=== PATIENT | male | born 1940 | race Caucasian/White ===

== ENCOUNTER 2019-04-18 16:34 | Inpatient (IN) ==
--- NOTE | 2019-04-18 16:58 | Emergency Department Note ---
Disposition Clinical Impression: Hyperkalemia, Near syncope, Dehydration, Acute renal insufficiency Disposition: Admitted As Inpatient Condition: Fair Time of Disposition: 21:10 Dizziness HPI - General Chief Complaint: ED Dizziness Stated Complaint: Trouble standing multiple falls Time Seen by Provider: 04/18/19 16:44 Source: patient, EMS Mode of arrival: ambulatory Limitations: no limitations Nursing Notes Reviewed: Yes Vital Signs Reviewed: Yes - History of Present Illness HPI Narrative: 78-year-old male past medical history of chronic renal disease, diabetes presenting after a presyncopal episode experienced at home associated with fall. Patient states separate into sitting on his front porch when he stood to go back in the house suddenly felt lightheaded and dizzy and fell. Patient states he did not strike his head, did not lose consciousness, has not had nausea vomiting since the event, no other trauma experienced during this episode. Patient denies headache, vision change, neck or back pain, chest pain or shortness of breath. Patient admits that he has had some nausea and vomiting over the past 3 weeks but is not worse or changed since this event. Pt Subjective Complaint: dizziness, lightheadedness, near syncope, weakness - Related Data Home Medications Medication Instructions Recorded Confirmed Aspirin [Lo-Dose Aspirin EC] 81 mg PO DAILY 04/18/19 04/18/19 Citalopram Hydrobromide 40 mg PO DAILY 04/18/19 04/18/19 [Citalopram HBr] Finasteride [Proscar] 5 mg PO DAILY 04/18/19 04/18/19 Furosemide [Lasix] 20 mg PO DAILY 04/18/19 04/18/19 Insulin Glargine [Lantus] 40 unit SQ 04/18/19 04/18/19 Lisinopril [Zestril] 10 mg PO DAILY 04/18/19 04/18/19 Metoprolol Tartrate 100 mg PO BID 04/18/19 04/18/19 Simvastatin [Zocor] 20 mg PO HS 04/18/19 04/18/19 Tamsulosin [Flomax] 0.4 mg PO BID 04/18/19 04/18/19 dilTIAZem HCl [Diltiazem ER] 240 mg PO DAILY 04/18/19 04/18/19 Allergies Allergy/AdvReac Type Severity Reaction Status Date / Time No Known Allergies Allergy Verified 04/18/19 16:48 Review of Systems: *See History of Present Illness for more detail Constitutional: Denies: fever, chills Cardiovascular: Denies: chest pain Respiratory: Denies: dyspnea, cough, hemoptysis Gastrointestinal: Patient minutes to intermittent nausea and vomiting productive of a white foamy sputum. Denies: abdominal pain, diarrhea, constipation, hematemesis, melena, hematochezia Genitourinary: Denies: hematuria Musculoskeletal: Denies: back pain, neck pain Neurological: Patient with some lightheadedness and dizziness particularly upon standing. Denies: headache, weakness, numbness, paresthesias, difficulty with ambulation. Endocrine: Admits fatigue All systems ED: reviewed and negative except as stated. Review of Systems: As Per HPI Past Medical History - Past Medical History Medical history: Reports: diabetes, renal disease - Social History Smoking Status: Former smoker Alcohol use: Reports: none Drug use: Reports: none Physical Exam Constitutional: No acute distress, [id number], engaged to conversation, speech is fluid, answers questions appropriately Neuro: GCS 15, no overt focal neurological deficits Head: Atraumatic, normocephalic Eyes: Pupils equal, round and reactive to light, no scleral icterus, no conjunctival injection Neck: Trachea midline without deviation. Anterior neck is supple without swelling. *Chest: Symmetric chest wall rise *Heart: Cardiac rhythm and rate are regular with S1 and S2 , no S3 or S4 appreciated, no murmurs, gallops, rubs, or clicks. *Lungs: Lungs are clear to auscultation bilaterally, without accessory muscle use or prolonged expiratory phase. No wheezes, rhonchi or stridor appreciated. Abdomen: Abdomen is flat, soft to palpation, normal bowel sounds. No abdominal bruit auscultated. Non-distended, non-rigid, no organomegaly, no ascites appreciated. No pulsatile mass, no tenderness or guarding to palpation in all four quadrants, no rebound Extremities: Normal capillary refill without evidence of pedal edema, joint swelling or erythema. Pulses/motor/sensory intact in all 4 extremities. Psychiatric exam: Patient displays a normal affect and mood for the environment. No overt signs of hallucination. Integumentary: Patient noted to have brawny changes to his lower extremities, venous stasis, nonpitting edema, multiple small circular ulcerations across the majority of his body, very poor skin care. - General Limitations: no limitations General appearance: alert, in no apparent distress Course Course Narrative: Presyncope workup including EKG, troponin, BNP, x-ray, basic labs, ammonia, CT scan of the abdomen and pelvis Vital Signs Temperature 99 F 04/18/19 16:40 Pulse Rate 95 04/18/19 16:40 Respiratory Rate 16 04/18/19 16:40 Blood Pressure 108/65 04/18/19 16:40 O2 Sat by Pulse Oximetry 95 04/18/19 16:40 Temperature 98.0 F 04/19/19 08:24 Pulse Rate 104 04/19/19 08:24 Respiratory Rate 20 04/19/19 08:24 Blood Pressure 97/68 04/19/19 08:24 O2 Sat by Pulse Oximetry 97 04/19/19 08:24 Oxygen Delivery Oxygen Delivery Room Air Dizziness - MDM Narrative Medical decision making narrative: Patient found to have significant hyperkalemia with potassium level VII.5 in the setting of acute on chronic kidney injury with a creatinine above 8. Patient also found to have elevated troponin and BNP Patient was ministered sodium bicarbonate, albuterol, calcium gluconate, and Kayexalate for the management of hyperkalemia Aspirin administered for cardiac prophylaxis Dr. Mabry from nephrology consulted and is following. Patient will be admitted to [facility] hospitalist medicine service for further evaluation and management of the above stated concerns with further concern for ACS. Patient and his family at the bedside verbalized their understanding and agreement with this plan. Dr. Zamudio accepting admission - Lab Data Lab results reviewed: Yes I reviewed the patient's lab results. Result diagrams: 04/19/19 03:30 04/19/19 03:30 Lab Results 04/18/19 04/18/19 04/18/19 Range/Units 16:59 16:59 16:59 WBC 8.8 (4.3-11.1) K/mcL RBC 3.12 L (4.19-5.50) M/mcL Hgb 9.4 L (12.9-16.9) g/dL Hct 29.7 L (37.5-50.1) % MCV 95.2 (83.0-100.0) fL MCH 30.1 (28.0-33.3) pg MCHC 31.6 (31.6-35.5) g/dL RDW 13.9 (11.5-14.5) % Plt Count 181 (140-400) K/mcL MPV 9.9 (9.4-12.4) fL Immature Gran % 0.3 (0-4) % Seg Neutrophils % 80.2 % Lymphocytes % 5.8 % Monocytes % 8.5 % Eosinophils % 4.9 % Basophils % 0.3 % Neutrophils # 7.1 (1.6-8.9) K/mcL Lymphocytes # 0.5 L (0.6-4.6) K/mcL Monocytes # 0.8 (0.0-1.3) K/mcL Eosinophils # 0.4 (0.0-0.6) K/mcL Basophils # 0.0 (0.0-0.2) K/mcL PT (9.4-12.1) Seconds INR APTT (26.0-36.0) Seconds Sodium 130 L (136-145) mEq/L Potassium 7.5 H* (3.5-5.1) mEq/L Chloride 104 (98-107) mEq/L Carbon Dioxide 15 L (23-29) mEq/L BUN 107 H (8-23) mg/dL Creatinine 8.06 H (0.70-1.30) mg/dL Est GFR ( Amer) 8 L (> 60) Est GFR (Non-Af Amer) 6 L (> 60) BUN/Creatinine Ratio 13 (6-26) Glucose 171 H (70-105) mg/dL Calculated Osmolality 308 H (280-300) Calcium 8.9 (8.6-10.3) mg/dL Total Bilirubin 0.3 (0.3-1.0) mg/dL Direct Bilirubin 0.1 (0.0-0.2) mg/dL Indirect Bilirubin 0.2 (0.0-1.2) mg/dL AST 41 H (13-39) Units/L ALT 32 (7-52) Units/L Alkaline Phosphatase 91 (34-104) Units/L Ammonia 38 (16-53) mcmol/L Troponin I 0.11 H* (< 0.04) ng/mL B-Natriuretic Peptide (Less than 100) pg/mL Serum Total Protein 6.3 L (6.4-8.9) g/dL Albumin 3.0 L (3.5-5.7) g/dL Globulin 3.3 (2.4-3.5) g/dL Albumin/Globulin Ratio 0.9 L (1.1-2.2) Lipase 76 (11-82) Units/L 04/18/19 04/18/19 04/18/19 Range/Units 16:59 18:52 19:32 WBC (4.3-11.1) K/mcL RBC (4.19-5.50) M/mcL Hgb (12.9-16.9) g/dL Hct (37.5-50.1) % MCV (83.0-100.0) fL MCH (28.0-33.3) pg MCHC (31.6-35.5) g/dL RDW (11.5-14.5) % Plt Count (140-400) K/mcL MPV (9.4-12.4) fL Immature Gran % (0-4) % Seg Neutrophils % % Lymphocytes % % Monocytes % % Eosinophils % % Basophils % % Neutrophils # (1.6-8.9) K/mcL Lymphocytes # (0.6-4.6) K/mcL Monocytes # (0.0-1.3) K/mcL Eosinophils # (0.0-0.6) K/mcL Basophils # (0.0-0.2) K/mcL PT 13.4 H (9.4-12.1) Seconds INR 1.2 APTT 29.1 (26.0-36.0) Seconds Sodium 135 L (136-145) mEq/L Potassium 6.6 H* (3.5-5.1) mEq/L Chloride 105 (98-107) mEq/L Carbon Dioxide 19 L (23-29) mEq/L BUN 111 H (8-23) mg/dL Creatinine 8.17 H (0.70-1.30) mg/dL Est GFR ( Amer) 8 L (> 60) Est GFR (Non-Af Amer) 6 L (> 60) BUN/Creatinine Ratio 14 (6-26) Glucose 91 (70-105) mg/dL Calculated Osmolality 315 H (280-300) Calcium 9.1 (8.6-10.3) mg/dL Total Bilirubin (0.3-1.0) mg/dL Direct Bilirubin (0.0-0.2) mg/dL Indirect Bilirubin (0.0-1.2) mg/dL AST (13-39) Units/L ALT (7-52) Units/L Alkaline Phosphatase (34-104) Units/L Ammonia (16-53) mcmol/L Troponin I (< 0.04) ng/mL B-Natriuretic Peptide 541 H (Less than 100) pg/mL Serum Total Protein (6.4-8.9) g/dL Albumin (3.5-5.7) g/dL Globulin (2.4-3.5) g/dL Albumin/Globulin Ratio (1.1-2.2) Lipase (11-82) Units/L - Radiology Data Radiology results reviewed: Yes I reviewed the patient's radiology results. Chest X-Ray 04/18/19 16:49 IMPRESSION: Rotated exam. Minimal left basilar atelectasis or pneumonitis. D/ / Darren Helton MD / Darren Helton MD Interpreting Provider: Darren Helton MD - EKG Data EKG attestation: Yes I reviewed and interpreted this EKG. EKG results narrative: This patient's EKG shows a sinus rhythm with an incomplete left bundle branch bl ock at a rate of 89 bpm, [place] interval 72 ms, QRS duration of 114 ms, QT/QTc interval 339/413 ms respectively. There are ST segment depressions noted in lead 1 aVL which are minor and less than 1 mm, no significant ST segment elevations, or no pathologic Q waves, there are abnormal T-wave inversions noted diffusely throughout the anterior lateral leads. This EKG performed today is significantly changed from prior EKG performed on 02/01/2005. Attestation Statement - Attestation Attestation: I, Jones Foote DO, examined this patient [id number] and my medical decision-making was reviewed with Dr. Jonatan Dolan Resident Physician. I agree with the documented findings, disposition and treatment plan as described except to the extent set forth below. I personally supervised and was present for the quevedo/critical portions of the procedures completed by the resident documented below. Please see my progress notes for details.
[2019-04-18 17:14] LABS: Basophils % 0.3 %; Eosinophils # 0.4 K/mcL (0.0-0.6); Eosinophils % 4.9 %; Hematocrit 29.7 % (37.5-50.1); Hemoglobin 9.4 g/dL (12.9-16.9); Immature Granulocytes % 0.3 % (0-4); Lymphocytes # 0.5 K/mcL (0.6-4.6); Lymphocytes % 5.8 %; Mean Corpuscular HGB Conc 31.6 g/dL (31.6-35.5); Mean Corpuscular Hemoglobin 30.1 pg (28.0-33.3); Mean Corpuscular Volume 95.2 fL (83.0-100.0); Mean Platelet Volume 9.9 fL (9.4-12.4); Monocytes # 0.8 K/mcL (0.0-1.3); Monocytes % 8.5 %; Neutrophils # 7.1 K/mcL (1.6-8.9); Platelet Count 181 K/mcL (140-400); Red Blood Count 3.12 M/mcL (4.19-5.50); Red Cell Distribution Width 13.9 % (11.5-14.5); Segmented Neutrophils % 80.2 %; White Blood Count 8.8 K/mcL (4.3-11.1)
[2019-04-18] MEDS ORDERED: Aspirin 81 MG TAB.CHEW PO SCH (17:30)
[2019-04-18 17:41] LABS: Troponin I 0.11 ng/mL (< 0.04)
[2019-04-18 17:49] LABS: Albumin/Globulin Ratio 0.9 (1.1-2.2); Bilirubin,Direct 0.1 mg/dL (0.0-0.2); Bilirubin,Indirect 0.2 mg/dL (0.0-1.2); Bilirubin,Total 0.3 mg/dL (0.3-1.0); Calcium 8.9 mg/dL (8.6-10.3); Globulin 3.3 g/dL (2.4-3.5); Potassium 7.5 mEq/L (3.5-5.1); Total Protein 6.3 g/dL (6.4-8.9)
[2019-04-18] MEDS ORDERED: Insulin Human Regular 10 UNIT in 0.9 % Sodium Chloride 10 ML IV ONE (17:49)
[2019-04-18] MEDS ORDERED: *HR* Dextrose 50 % in Water (Syg) 50 ML SYRINGE IVP ONE (17:49)
--- NOTE | 2019-04-18 18:11 | Emergency Department Note ---
Disposition Clinical Impression: Hyperkalemia, Near syncope, Dehydration, Acute renal insufficiency Disposition: Admitted As Inpatient Condition: Fair Forms: ED Satisfaction Letter Time of Disposition: 20:15 General Adult HPI - General Chief complaint: ED Dizziness Stated complaint: Trouble standing multiple falls Time Seen by Provider: 04/18/19 16:44 Source: patient, EMS Mode of arrival: ambulatory Limitations: no limitations - History of Present Illness Pain Scale: 4 - Related Data Home Medications Medication Instructions Recorded Confirmed Aspirin [Lo-Dose Aspirin EC] 81 mg PO DAILY 04/18/19 04/18/19 Citalopram Hydrobromide 40 mg PO DAILY 04/18/19 04/18/19 [Citalopram HBr] Finasteride [Proscar] 5 mg PO DAILY 04/18/19 04/18/19 Furosemide [Lasix] 20 mg PO DAILY 04/18/19 04/18/19 Insulin Glargine [Lantus] 40 unit SQ HS 04/18/19 04/18/19 Lisinopril [Zestril] 10 mg PO DAILY 04/18/19 04/18/19 Metoprolol Tartrate 100 mg PO BID 04/18/19 04/18/19 Simvastatin [Zocor] 20 mg PO HS 04/18/19 04/18/19 Tamsulosin [Flomax] 0.4 mg PO BID 04/18/19 04/18/19 dilTIAZem HCl [Diltiazem ER] 240 mg PO DAILY 04/18/19 04/18/19 Allergies Allergy/AdvReac Type Severity Reaction Status Date / Time No Known Allergies Allergy Verified 04/18/19 16:48 Past Medical History - Past Medical History Medical history: Reports: diabetes, renal disease - Social History Smoking Status: Former smoker Alcohol use: Reports: none Drug use: Reports: none Physical Exam - General Limitations: no limitations General appearance: alert, in no apparent distress Course Vital Signs Temperature 99 F 04/18/19 16:40 Pulse Rate 95 04/18/19 16:40 Respiratory Rate 16 04/18/19 16:40 Blood Pressure 108/65 04/18/19 16:40 O2 Sat by Pulse Oximetry 95 04/18/19 16:40 Temperature 99 F 04/18/19 16:40 Pulse Rate 97 04/18/19 19:27 Respiratory Rate 20 06/14/19 19:27 Blood Pressure 111/56 04/18/19 19:27 O2 Sat by Pulse Oximetry 97 04/18/19 19:27 Oxygen Delivery Oxygen Delivery Room Air Medical Decision Making - Lab Data Result diagrams: 04/18/19 16:59 04/18/19 19:32 Lab Results 04/18/19 04/18/19 04/18/19 Range/Units 16:59 16:59 16:59 WBC 8.8 (4.3-11.1) K/mcL RBC 3.12 L (4.19-5.50) M/mcL Hgb 9.4 L (12.9-16.9) g/dL Hct 29.7 L (37.5-50.1) % MCV 95.2 (83.0-100.0) fL MCH 30.1 (28.0-33.3) pg MCHC 31.6 (31.6-35.5) g/dL RDW 13.9 (11.5-14.5) % Plt Count 181 (140-400) K/mcL MPV 9.9 (9.4-12.4) fL Immature Gran % 0.3 (0-4) % Seg Neutrophils % 80.2 % Lymphocytes % 5.8 % Monocytes % 8.5 % Eosinophils % 4.9 % Basophils % 0.3 % Neutrophils # 7.1 (1.6-8.9) K/mcL Lymphocytes # 0.5 L (0.6-4.6) K/mcL Monocytes # 0.8 (0.0-1.3) K/mcL Eosinophils # 0.4 (0.0-0.6) K/mcL Basophils # 0.0 (0.0-0.2) K/mcL PT (9.4-12.1) Seconds INR APTT (26.0-36.0) Seconds Sodium 130 L (136-145) mEq/L Potassium 7.5 H* (3.5-5.1) mEq/L Chloride 104 (98-107) mEq/L Carbon Dioxide 15 L (23-29) mEq/L BUN 107 H (8-23) mg/dL Creatinine 8.06 H (0.70-1.30) mg/dL Est GFR ( Amer) 8 L (> 60) Est GFR (Non-Af Amer) 6 L (> 60) BUN/Creatinine Ratio 13 (6-26) Glucose 171 H (70-105) mg/dL Calculated Osmolality 308 H (280-300) Calcium 8.9 (8.6-10.3) mg/dL Total Bilirubin 0.3 (0.3-1.0) mg/dL Direct Bilirubin 0.1 (0.0-0.2) mg/dL Indirect Bilirubin 0.2 (0.0-1.2) mg/dL AST 41 H (13-39) Units/L ALT 32 (7-52) Units/L Alkaline Phosphatase 91 (34-104) Units/L Ammonia 38 (16-53) mcmol/L Troponin I 0.11 H* (< 0.04) ng/mL B-Natriuretic Peptide (Less than 100) pg/mL Serum Total Protein 6.3 L (6.4-8.9) g/dL Albumin 3.0 L (3.5-5.7) g/dL Globulin 3.3 (2.4-3.5) g/dL Albumin/Globulin Ratio 0.9 L (1.1-2.2) Lipase 76 (11-82) Units/L 04/18/19 04/18/19 04/18/19 Range/Units 16:59 18:52 19:32 WBC (4.3-11.1) K/mcL RBC (4.19-5.50) M/mcL Hgb (12.9-16.9) g/dL Hct (37.5-50.1) % MCV (83.0-100.0) fL MCH (28.0-33.3) pg MCHC (31.6-35.5) g/dL RDW (11.5-14.5) % Plt Count (140-400) K/mcL MPV (9.4-12.4) fL Immature Gran % (0-4) % Seg Neutrophils % % Lymphocytes % % Monocytes % % Eosinophils % % Basophils % % Neutrophils # (1.6-8.9) K/mcL Lymphocytes # (0.6-4.6) K/mcL Monocytes # (0.0-1.3) K/mcL Eosinophils # (0.0-0.6) K/mcL Basophils # (0.0-0.2) K/mcL PT 13.4 H (9.4-12.1) Seconds INR 1.2 APTT 29.1 (26.0-36.0) Seconds Sodium 135 L (136-145) mEq/L Potassium 6.6 H* (3.5-5.1) mEq/L Chloride 105 (98-107) mEq/L Carbon Dioxide 19 L (23-29) mEq/L BUN 111 H (8-23) mg/dL Creatinine 8.17 H (0.70-1.30) mg/dL Est GFR ( Amer) 8 L (> 60) Est GFR (Non-Af Amer) 6 L (> 60) BUN/Creatinine Ratio 14 (6-26) Glucose 91 (70-105) mg/dL Calculated Osmolality 315 H (280-300) Calcium 9.1 (8.6-10.3) mg/dL Total Bilirubin (0.3-1.0) mg/dL Direct Bilirubin (0.0-0.2) mg/dL Indirect Bilirubin (0.0-1.2) mg/dL AST (13-39) Units/L ALT (7-52) Units/L Alkaline Phosphatase (34-104) Units/L Ammonia (16-53) mcmol/L Troponin I (< 0.04) ng/mL B-Natriuretic Peptide 541 H (Less than 100) pg/mL Serum Total Protein (6.4-8.9) g/dL Albumin (3.5-5.7) g/dL Globulin (2.4-3.5) g/dL Albumin/Globulin Ratio (1.1-2.2) Lipase (11-82) Units/L Critical Care Time Critical Care Time: Yes Total Critical Care Time: 60 Attestation: Critical care performed: Time is exclusive of separately billable procedures. Time includes: direct patient care, patient reassessment, coordination of patient care, interpretation of data (laboratory data, radiology data, and respiratory data), review of pat yadynt's medical records, medical consultation and documentation of patient care. Procedures included in critical care time: Procedures excluded from critical care time: Attestation Statement - Attestation Attestation: I, Jones Foote DO, examined this patient [id number] and my medical decision-making was reviewed with Dr. Jonatan Dolan, Resident Physician. I agree with the documented findings, disposition and treatment plan as described except to the extent set forth below. I personally supervised and was present for the quevedo/critical portions of the procedures completed by the resident documented below. Please see my progress notes for details. 78-year-old male presents emergency room for evaluation of generalized weakness and near syncope and a fall here today. Patient was at home and went to get up out of his chair and felt lightheaded and fell forward. He has been having these symptoms on and off for the last several weeks. He denies any chest pain shortness of breath headache vision changes fevers or chills. He did not have any nausea vomiting or diarrhea. He has known kidney insufficiency and had a Warner catheter placed none removed approximately for 5 days ago. He has not had any urine output since then. States that he has not had any other complaints or issues. Vital signs are reviewed and are stable. Patient is alert he is oriented. He speaks in full sentences. Patient is denying any other complaints or issues at this point outside of swelling in his lower legs. Head is atraumatic. Pupils are round reactive. Oropharynx is patent. Trachea is midline. Lungs are clear. Abdomen is soft with no point tenderness guarding rigidity or peritoneal symptoms noted at this time. Family said very poor skin care along with flaking the skin AT the lower cavities. Abrasions to the knees. Tetanus will be updated this time. Pulses are intact. Patient was ambulatory prior to coming in. Patient will have detailed workup looking for cardiac, pu lmonary, infectious etiology is a treatable source here today. Detailed workup and treatment course to be established. EKG was reviewed by myself in documented as a physician's note. There are some inconsistencies with ST segment elevation in lead 3 but no contiguous leads. There is some slight reciprocal changes or depression in the lateral precordial leads. No acute signs of hyperacute T waves or morphology changes. See detailed documentation the physical exam, medical intervention, medical decision-making and disposition in the resident physician's note. No critical care pad the patient's treatment course at this time. 1755 Patient is found to have a potassium is 7.5. After reviewing the previous labs he had a potassium of 6.54 days ago. He was recommended take Kayexalate at home and follow-up with his primary care provider. Patient has had significant decline in his renal function. I discussed this with the on-call journeyman patternmaker Dr. Mabry. The recommendations. For typical treatment including potassium stabilization meds. Calcium gluconate, bicarbonate, insulin dextrose, albuterol and Kayexalate have been ordered. Patient does have an elevated troponin but is still continue to deny chest pain. Aspirin will be given. Disposition will be admission wants a full workup and treatment course I been established. 60 minutes of critical care applied the patient's treatment course at this time 2000 Patient was discussed with the hospitalist Dr. Zamudio. Detailed review the presentation the symptoms and medical intervention were discussed at length. The repeat potassium was 6.6. Patient's renal function is not getting any better yet at this point. Patient does have concerning for fluid overload secondary to his history of cardiac related issues as well as elevated BNP. All the lab abnormalities can be attributed to the renal insufficiency at this time but we will continue to hydrate judiciously as tolerated by the patient's respiratory status. As well as signs remained otherwise stable. No other immediate recommendations or intervention required at this time. Patient is clinically stable. He will be monitored here in the emergency department and admission process is completed for acute renal insufficiency with hyperkalemia and profound dehydration.
[2019-04-18] MEDS ORDERED: Albuterol 2.5 MG/3 ML NEBULIZER IH ONE (18:13)
[2019-04-18] MEDS: Calcium Gluconate 1gm/50mL 1 GM/50 ML BAG IVPB SCH ×2 (18:13→18:50)
[2019-04-18] MEDS ORDERED: Sodium Bicarbonate 50 MEQ/50 ML VIAL IVP ONE (18:16)
[2019-04-18] MEDS ORDERED: 0.9 % Sodium Chloride 1,000 ML IVC ONE (18:21)
[2019-04-18] MEDS ORDERED: 0.9 % Sodium Chloride 1,000 ML IVC SCH (19:00)
[2019-04-18 19:17] LABS: INR 1.2; Prothrombin Time 13.4 Seconds (9.4-12.1)
[2019-04-18 19:20] LABS: Activated Partial Thrombo Time 29.1 Seconds (26.0-36.0)
[2019-04-18 20:09] LABS: Calcium 9.1 mg/dL (8.6-10.3); Potassium 6.6 mEq/L (3.5-5.1)
[2019-04-18] MEDS ORDERED: Naloxone 0.4 MG/ML INJ IVP PRN (21:10)
[2019-04-18] MEDS ORDERED: D5% in Water 1,000 ML IVC PRN (21:15)
[2019-04-18] MEDS ORDERED: *HR* Dextrose 50 % in Water (Syg) 50 ML SYRINGE IVP PRN (21:15)
[2019-04-18] MEDS ORDERED: Dextrose Gel 15 GM/37.5 ML TUBE PO PRN ×2 (21:15)
--- NOTE | 2019-04-18 21:34 | Internal Med History&Physical ---
<Igor Salas - Last Filed: 04/18/19 23:25> Date of Encounter: 04/18/19 Time of Encounter: 21:33 Internal Medicine - H&P: HPI Chief complaint: Presyncope History of present illness: Mr. Galvan is a 78 year old male with a PMH of DM and CKD who presented to [facility] ED on 04/18/19 after presyncopal episode at home associated with a fall. He was sitting on his front porch when he stood up and experienced lightheadedness and dizziness, and had a subsequent fall. Denied loss of consciousness or head injury. Denied any associated headache, vision changes, or chest pain. He reported that he had nausea and vomiting over the last 3 weeks. He has a known diagnosis of renal insufficiency, and reported that he had a Warner catheter placed for total of 3 weeks due to findings on retroperitoneal ultrasound suggestive of obstruction secondary to BPH. It was removed 5 days ago. He reported no urine output since this time. He was noted to have swelling in the lower extremities. Upon arrival to the ED, patients vital signs were significant for an elevated heart rate at 95 bpm, temperature of 99, and a blood pressure of 108/65. Labs demonstrated a hemoglobin of 9.4, with a baseline between 10 and 11, an elevated potassium level at 7.5, a low sodium of 130, and an elevated creatinine at 8.06. Previous creatinine on 04/14 was 5.42. BNP was 541, and troponin was elevated at 0.11. CXR demonstrated minimal left basilar atelectasis or pneumonitis. EKG performed in the ER demonstrated sinus rhythm with incomplete left bundle branch block, heart rate 89 bpm, [place] 72, QRS 114, QTc 413, abnormal T-wave inversions noted diffusely throughout anterolateral leads, and ST depressions present in 1 and aVL, less than 1 mm. Due to his acute kidney injury and worsening hyperkalemia, the on-call surgical scrub technologist Dr. Mabry was contacted by the ED. Calcium gluconate, bicarbonate, insulin, albuterol, and Kayexalate were ordered. A one-time dose of ASA was given. During interview, patient states that he is feeling well. Denies dizziness, lightheadedness, chest pain, palpitations, weakness, nausea, or vomiting. States that he has been having frequent bowel movements since he was given Kayexalate. He has no further complaints. On exam, he is noted to have distended abdomen, nonpitting edema in the lower extremities extending up to the knees with associated scabbing on the lower extremities bilaterally, and a shortened inspiratory phase. He states that he was started on Flomax about 2 weeks ago for BPH, and states that he has been taking his medications faithfully. He reported a prior episode of presyncope approximately 2 weeks prior to this episode when he stood up from the bathtub. He denies having any prior episodes of presyncope. He followed with Dr. Ross. He is unsure of what stage kidney disease he is at. His family history is significant for heart disease in both of his siblings. He will be admitted for the management of acute kidney injury, hyperkalemia, hyponatremia, and volume overload. Past Med Surg Social Fam HX - Past Medical History Medical history: diabetes, renal disease - Social History Smoking Status: Former smoker Alcohol use: none Drug use: none Internal Medicine - H&P: Meds Aspirin [Lo-Dose Aspirin EC] 81 mg PO DAILY 04/18/19 [History] Citalopram Hydrobromide [Citalopram HBr] 40 mg PO DAILY 04/18/19 [History] Finasteride [Proscar] 5 mg PO DAILY 04/18/19 [History] Furosemide [Lasix] 20 mg PO DAILY 04/18/19 [History] Insulin Glargine [Lantus] 40 unit SQ HS 04/18/19 [History] Lisinopril [Zestril] 10 mg PO DAILY 04/18/19 [History] Metoprolol Tartrate 100 mg PO BID 04/18/19 [History] Simvastatin [Zocor] 20 mg PO HS 04/18/19 [History] Tamsulosin [Flomax] 0.4 mg PO BID 04/18/19 [History] dilTIAZem HCl [Diltiazem ER] 240 mg PO DAILY 04/18/19 [History] Allergy/AdvReac Type Severity Reaction Status Date / Time No Known Allergies Allergy Verified 04/18/19 16:48 All Systems PM: A 10-system review of systems was performed and is negative for pertinent findings except as documented above in the HPI. - Constitutional Vitals: Temp Pulse Resp BP Pulse Ox 98.3 F 98 24 103/68 95 06/14/19 21:25 04/18/19 21:25 04/18/19 21:25 04/18/19 21:25 04/18/19 21:25 Exam: General: A&O X3, conversant, no acute distress Head: atraumatic, normocephalic Eye: PERRL, EOMI, conjuntiva pink, sclera anicteric Neck: Supple, trachea midline; No lymphadenopathy Respiratory: Shortened inspiratory phase. No accessory muscle use, wheezes, rales, or rhonchi Cardiovascular: RRR, +S1/+S2; no murmurs, rubs, gallops Abdomen: Soft, distended Extremities: Nonpitting edema extending up to the knees, scabbing and brown discoloration of the skin on the lower extremities bilaterally Neurological: No weakness or focal deficits noted Psychiatric: Normal affect, normal mood Skin: Dry, intact Internal Med - H&P Results - Labs CBC & Chem 7: 04/18/19 16:59 04/18/19 19:32 Labs: Short CBC 04/18/19 Range/Units 16:59 WBC 8.8 (4.3-11.1) K/mcL Hgb 9.4 L (12.9-16.9) g/dL Hct 29.7 L (37.5-50.1) % Plt Count 181 (140-400) K/mcL Neutrophils # 7.1 (1.6-8.9) K/mcL BMP 04/18/19 04/18/19 16:59 19:32 Sodium 130 L 135 L Potassium 7.5 H* 6.6 H* Chloride 104 105 Carbon Dioxide 15 L 19 L BUN 107 H 111 H Creatinine 8.06 H 8.17 H Glucose 171 H 91 Calcium 8.9 9.1 Cardiac Enzymes 04/18/19 04/18/19 Range/Units 16:59 20:28 Troponin I 0.11 H* 0.09 H* (< 0.04) ng/mL Liver Function 04/18/19 Range/Units 16:59 Total Bilirubin 0.3 (0.3-1.0) mg/dL Direct Bilirubin 0.1 (0.0-0.2) mg/dL AST 41 H (13-39) Units/L ALT 32 (7-52) Units/L Alkaline Phosphatase 91 (34-104) Units/L Albumin 3.0 L (3.5-5.7) g/dL - Impressions ITS Impressions Chest X-Ray 04/18/19 16:49 IMPRESSION: Rotated exam. Minimal left basilar atelectasis or pneumonitis. D/ / Darren Helton MD / Darren Helton MD Interpreting Provider: Darren Helton MD - Assessment and Plan (1) Acute kidney injury superimposed on chronic kidney disease Current Visit: Yes Status: Acute Assessment and plan: Assessment: - Presented with an elevated Cr at 8.06; previous Cr per chart review was 5.42 on 04/14 - Unknown etiology at this time; per review of previous records, patient had a retroperitoneal U/S performed on 03/13, which showed a large amount of postvoid residual volume without evidence of hydronephrosis - Possible obstructive component due to BPH; patient was diagnosed with BPH and was started on Flomax 2 weeks ago; follows with Dr. Damico - He also had a Warner catheter placed for a total of 3 weeks due to a large amount of post void residual; Warner catheter was removed 5 days ago - He reports that since the Warner catheter was removed, he has had no urinary output - He has a known history of chronic kidney disease; Creatinine has been steadily increasing over the past year - GFR on presentation is 6; previous GFR on 04/14 was 10 - Regional Loss Prevention Manager Dr. Mabry has been consulted from the ED Plan: - Urinalysis ordered and pending, as well as urine studies for KRYSTA workup: CK, urine eosinophils, urine protein, urine sodium, urine creatinine - CT scan of the abdomen and pelvis is ordered and currently pending to r/o obstruction - We will hold off on IV fluid hydration for the time being due to volume overload status - Strict intake and output, daily weights - Renally dose medications and avoid nephrotoxins if possible - Renal diet (2) Hyperkalemia Current Visit: Yes Status: Acute Assessment and plan: Assessment: - Presented with an elevated potassium level at 7.5 - Likely secondary to acute kidney injury on chronic kidney disease - Calcium gluconate, insulin, albuterol, and Kayexalate administered in ER - Repeat potassium was 6.6 Plan: - Continuous telemetry - Will trend BMP every 6 hours - Continue Kayexalate (3) Elevated troponin Current Visit: Yes Status: Acute Assessment and plan: Assessment: - Initially presented with an elevated troponin at 0.11 - No previous troponin levels available for comparison - Patient did present with an abnormal EKG - He was administered aspirin in the emergency department Plan: - Trend troponin Q6 hours - ECHO ordered - Continuous telemetry (4) Hyponatremia Current Visit: Yes Status: Acute Assessment and plan: Assessment: - Resented with a low sodium level of 130 - Per chart review, patient appears to have a normal sodium level - Etiology is likely secondary to acute renal failure Plan: - Received a bolus of normal saline in the ER - We will hold off on continuation of fluids for the time being given volume overload status - Repeat BMP pending for 23:30 (5) Lower extremity edema Current Visit: Yes Status: Acute Assessment and plan: - Patient presented with progressive lower extremity edema over the past 6 months - Likely secondary to worsening renal function - Patient denies having any known history of congestive heart failure - BNP was elevated on presentation at 541 Plan: - We will obtain echocardiogram to rule out congestive heart failure (6) Abnormal EKG Current Visit: Yes Status: Acute Assessment and plan: - Presented with abnormal EKG; incomplete LBBB, abnormal T-wave inversions throughout anterolateral leads, mild ST depressions in 1 and aVL, <1 mm - Etiology unknown; possibly secondary to electrolyte disturbances - Patient denies having active chest pain or any prior cardiac history Plan: - Continuous telemetry - Trend troponin 3 (7) BPH (benign prostatic hyperplasia) Current Visit: Yes Status: Acute Assessment and plan: - Patient was recently diagnosed with BPH - Follow-up in the outpatient setting with Dr. Damico - Reports that he was started on Flomax 2 weeks ago - CT scan of abdomen and pelvis has been ordered to rule out obstruction Qualifiers: Qualified Code(s): N40.0 - Benign prostatic hyperplasia without lower urinary tract symptoms (8) HTN (hypertension) Current Visit: Yes Status: Acute Assessment and plan: - Normally takes lisinopril, diltiazem, and metoprolol - Will hold blood pressure medications for the time being, as blood pressure was low on presentation Qualifiers: Qualified Code(s): I10 - Essential (primary) hypertension (9) Diabetes Current Visit: Yes Status: Acute Assessment and plan: - Sliding-scale insulin - Every 6 Accu-Cheks Qualifiers: Qualified Code(s): E11.9 - Type 2 diabetes mellitus without complications (10) DVT prophylaxis Current Visit: Yes Status: Acute Assessment and plan: Heparin 5000 SQ - Time Spent With Patient Total time spent is greater than 50% in coordination of care (as documented) at patient's floor/unit and/or counseling patient: <Du Zamudio - Last Filed: 04/19/19 00:20> Date of Encounter: 04/19/19 Internal Medicine - H&P: HPI History of present illness: Mr. Galvan is a 78 year old male Past Med Surg Social Fam HX - Family History Brother Living Status: Hx Family Cardiac Disorders: Yes Hx Family Cancer: Yes Sister Hx Family Respiratory Disorders: Yes All Systems PM: A 10-system review of systems was performed and is negative for pertinent findings except as documented above in the HPI. - Constitutional Vitals: Temp Pulse Resp BP Pulse Ox 98.7 F 96 22 101/79 96 04/18/19 23:41 04/18/19 23:41 04/18/19 23:41 04/18/19 23:41 04/18/19 23:41 Internal Med - H&P Results - Labs CBC & Chem 7: 04/18/19 16:59 04/18/19 19:32 Labs: Short CBC 04/18/19 Range/Units 16:59 WBC 8.8 (4.3-11.1) K/mcL Hgb 9.4 L (12.9-16.9) g/dL Hct 29.7 L (37.5-50.1) % Plt Count 181 (140-400) K/mcL Neutrophils # 7.1 (1.6-8.9) K/mcL BMP 04/18/19 04/18/19 16:59 19:32 Sodium 130 L 135 L Potassium 7.5 H* 6.6 H* Chloride 104 105 Carbon Dioxide 15 L 19 L BUN 107 H 111 H Creatinine 8.06 H 8.17 H Glucose 171 H 91 Calcium 8.9 9.1 Cardiac Enzymes 04/18/19 04/18/19 04/18/19 Range/Units 16:59 20:28 21:20 Troponin I 0.11 H* 0.09 H* 0.10 H* (< 0.04) ng/mL Liver Function 04/18/19 Range/Units 16:59 Total Bilirubin 0.3 (0.3-1.0) mg/dL Direct Bilirubin 0.1 (0.0-0.2) mg/dL AST 41 H (13-39) Units/L ALT 32 (7-52) Units/L Alkaline Phosphatase 91 (34-104) Units/L Albumin 3.0 L (3.5-5.7) g/dL - Impressions ITS Impressions Chest X-Ray 04/18/19 16:49 IMPRESSION: Rotated exam. Minimal left basilar atelectasis or pneumonitis. D/ / Darren Helton MD / Darren Helton MD Interpreting Provider: Darren Helton MD Abdomen/Pelvis CT 04/18/19 20:27 IMPRESSION: 5 mm urolith left renal pelvis without hydronephrosis at this time. Other incidental findings as noted above including ileus. D/ / Darren Salinas MD / Darren Salinas MD Interpreting Provider: Darren Salinas MD - Time Spent With Patient Total time spent is greater than 50% in coordination of care (as documented) at patient's floor/unit and/or counseling patient: - Attending Attestation I examined this patient and my medical decision-making was reviewed [facility]. I agree with the documented findings, disposition and treatment plan as described except to the extent set forth below. Patient is a 78-year-old male with history of chronic kidney disease, BPH is with lightheadedness and dizziness. He had a fall from this episode. He denies hitting his head or loss of consciousness. Patient has a history of chronic kidney disease being followed by Dr. Mitchell and states that he has required dialysis for a short time 5 years ago but otherwise has not required dialysis long-term. Denies any significant family history of kidney disease On exam he appears generally unkempt, heart is regular rate and rhythm, no murmurs, rubs, gallops, lungs are clear to auscultation, abdomen is distended and soft. He has 2+ lower extremity pitting edema Labs remarkable for significant rise in his creatinine at 8.17, potassium initially was 7.5, recheck down to 6.6, troponin elevated at 0.11. Assessment and plan: Hyperkalemia: Likely secondary to worsening of his chronic kidney disease. Currently treating medically, patient received insulin/dextrose, calcium gluconate, bicarbonate, Kayexalate. Initially 7.5, recheck down to 6.6. Appears to be responding medically so no indication for acute dialysis at this time but will recheck this evening. Acute kidney injury on chronic kidney disease: Patient follows with outside surgical scrub technologist and has had dialysis in the past but is not a chronic dialysis patient. I suspect this is progression of his chronic kidney disease and will ultimately require hemodialysis. This was discussed with patient. Discussed with nephrology who will closely follow the patient.
[2019-04-18] MEDS: Ondansetron 4 MG/2 ML VIAL IVP PRN (22:20)
[2019-04-19 01:41] LABS: Calcium 8.7 mg/dL (8.6-10.3); Potassium 6.7 mEq/L (3.5-5.1)
[2019-04-19 03:45] LABS: Basophils % 0.1 %; Eosinophils % 0.4 %; Hematocrit 27.1 % (37.5-50.1); Hemoglobin 8.5 g/dL (12.9-16.9); Immature Granulocytes % 0.4 % (0-4); Lymphocytes # 0.3 K/mcL (0.6-4.6); Lymphocytes % 3.3 %; Mean Corpuscular HGB Conc 31.4 g/dL (31.6-35.5); Mean Corpuscular Hemoglobin 29.8 pg (28.0-33.3); Mean Corpuscular Volume 95.1 fL (83.0-100.0); Monocytes # 0.6 K/mcL (0.0-1.3); Neutrophils # 8.1 K/mcL (1.6-8.9); Platelet Count 146 K/mcL (140-400); Red Blood Count 2.85 M/mcL (4.19-5.50); Red Cell Distribution Width 14.1 % (11.5-14.5); Segmented Neutrophils % 88.8 %; White Blood Count 9.1 K/mcL (4.3-11.1)
[2019-04-19 04:05] LABS: Calcium 8.8 mg/dL (8.6-10.3); Potassium 6.4 mEq/L (3.5-5.1)
[2019-04-19] MEDS ORDERED: *HR* Heparin 5,000 UNIT/ML VIAL SQ SCH (06:00)
[2019-04-19] MEDS: Finasteride 5 MG TABLET PO SCH (07:31)
[2019-04-19] MEDS ORDERED: Perflutren Lipid Microsphere 1.3 ML in 0.9 % Sodium Chloride 8.7 ML IVP ONE (07:34)
[2019-04-19] MEDS ORDERED: 0.9 % Sodium Chloride 1,000 ML IVC SCH (08:30)
[2019-04-19] MEDS: Insulin LISPRO 300 UNITS/3 ML VIAL SQ SCH ×3 (08:31→18:17)
[2019-04-19] MEDS ORDERED: Aspirin Enteric Coated 81 MG Tablet PO SCH (09:00)
[2019-04-19] MEDS ORDERED: Furosemide 20 MG TABLET PO SCH (09:00)
[2019-04-19] MEDS ORDERED: 0.9 % Sodium Chloride 1,000 ML IVC ONE (09:44)
--- NOTE | 2019-04-19 09:46 | Nephrology Consult Note ---
Date of Encounter: 04/19/19 Time of Encounter: 09:45 Assessment and Plan (1) Acute kidney injury superimposed on chronic kidney disease Current Visit: Yes Status: Acute Patient has chronic kidney disease that is likely secondary to diabetes and hypertension. He presents with severe acute kidney injury superimposed on chronic kidney disease that is likely multifactorial. The patient gives a history of low to no urine output for several days prior to admission. He also gives a history of decrease oral intake along with nausea and some vomiting german or to his admission. He takes blood pressure medications including a diuretic during the time that he had decreased oral intake and on the day of admission states he was sitting on the son. He presents with a presyncopal episode that clinically I would think is hypovolemia. This hypovolemic shock is likely continuing to his acute kidney injury which at this time is likely acute tubular necrosis given his clinical picture. We will check orthostatic vital signs Since his hyperkalemia responded to medical management will give him aggressive hydration to see if his renal function improves. If the patient is unable to produce urine in the next few hours I will initiate hemodialysis. The patient gives consent for hemodialysis. At this time I am unclear as to why he had the myoclonic jerking. I do not see gabapentin in his medication list. We will defer further investigation to his primary team. The patient has anemia that is likely multifactorial. We will check iron stores, vitamin B12, folate, and a reticulocyte count. Patient can be transfuse as needed. Patient is critically ill with multiple organs failing and life threatening electrolyte abnormalities. Thank you for the consult. Will continue to follow with you. Spoke with Dr. Brock. (2) Dehydration Current Visit: Yes Status: Acute (3) Diabetes Current Visit: Yes Status: Acute We will defer management to primary team. His hemoglobin A1c in the past has been less than 7. Qualifiers: Qualified Code(s): E11.9 - Type 2 diabetes mellitus without complications (4) Elevated troponin Current Visit: Yes Status: Acute Likely multifactorial. Agree with workup. If not already done consider cardiology consultation as patient is at high risk for ACS given his comorbidit ies. (5) HTN (hypertension) Current Visit: Yes Status: Acute His blood pressure is currently low. We will aggressively hydrate. Hold antihypertensive medications at this time. May resume blood pressure medications once his blood pressure returns to his baseline. Qualifiers: Qualified Code(s): I10 - Essential (primary) hypertension (6) Hyperkalemia Current Visit: Yes Status: Acute Medical management for now. He may need dialysis. (7) Hyponatremia Current Visit: Yes Status: Acute Multifactorial. We will give isotonic fluids. Monitor for improvement. (8) Near syncope Current Visit: Yes Status: Acute I suspect this is orthostatic in nature, however, with his comorbidities and a rising troponin consider cardiology consultation. (9) Anemia Current Visit: Yes Status: Acute Workup is ordered. Qualifiers: Qualified Code(s): D64.9 - Anemia, unspecified (10) Metabolic acidosis Current Visit: Yes Status: Acute We will order a liter of sodium bicarbonate. (11) BPH (benign prostatic hyperplasia) Current Visit: Yes Status: Acute Qualifiers: Qualified Code(s): N40.0 - Benign prostatic hyperplasia without lower urinary tract symptoms (12) Myoclonus Current Visit: Yes Status: Acute We will defer primary management to primary team. History of Present Illness - Reason for Consult Consult date: 04/19/19 Acute Kidney Injury, Chronic Kidney Disease - Chief Complaint KRYSTA on CKD - History of Present Illness Mr. Galvan is a 78-year-old gentleman with a history of chronic kidney disease followed by Dr. Mitchell's group. He presents after a near syncopal episode that occurred after he stood up on his porch. The patient states he had been having some nausea and one or 2 episodes of emesis and was not drinking much and was in the sun prior to this event. He denies chest pain, shortness of breath, diarrhea, constipation, abdominal pain, or other recent changes to his health. Overnight the patient had imaging that was negative for hydronephrosis. He was found to have acute kidney injury superimposed on chronic kidney disease along with hyperkalemia upon admission. His hyperkalemia was medically managed and improved, but remains elevated. At the time of evaluation he does not have a Warner catheter in place. I informed the patient that if his renal function does not improve soon that he may need hemodialysis. At the time of my discussion he was agreeable. Past Med Surg Social Fam HX - Past Medical History Medical history: diabetes, renal disease Psychiatric history: no psych history - Past Surgical History Surgical History: herniorrhaphy, knee replacement - Social History Smoking Status: Former smoker Smokeless Tobacco Status: No Alcohol use: none Drug use: none - Family History Brother Living Status: Hx Family Cardiac Disorders: Yes Hx Family Cancer: Yes Sister Hx Family Respiratory Disorders: Yes Medications and Allergies Aspirin [Lo-Dose Aspirin EC] 81 mg PO DAILY 04/18/19 [History] Citalopram Hydrobromide [Citalopram HBr] 40 mg PO DAILY 04/18/19 [History] Finasteride [Proscar] 5 mg PO DAILY 04/18/19 [History] Furosemide [Lasix] 20 mg PO DAILY 04/18/19 [History] Insulin Glargine [Lantus] 40 unit SQ HS 04/18/19 [History] Lisinopril [Zestril] 10 mg PO DAILY 04/18/19 [History] Metoprolol Tartrate 100 mg PO BID 04/18/19 [History] Simvastatin [Zocor] 20 mg PO HS 04/18/19 [History] Tamsulosin [Flomax] 0.4 mg PO BID 04/18/19 [History] dilTIAZem HCl [Diltiazem ER] 240 mg PO DAILY 04/18/19 [History] Allergy/AdvReac Type Severity Reaction Status Date / Time No Known Allergies Allergy Verified 04/18/19 16:48 Review of Systems All Systems: reviewed and no additional remarkable complaints except as stated (As per history of present illness) Constitutional: as per HPI Nose, mouth and throat: as per HPI Cardiovascular: as per HPI Respiratory: as per HPI Gastrointestinal: as per HPI Musculoskeletal: as per HPI Integumentary: as per HPI Neurological: as per HPI Psychiatric: as per HPI Endocrine: as per HPI Hematologic/Lymphatic: as per HPI Allergic/Immunologic: as per HPI Exam - Vital Signs Vital signs: Initial Vital Signs Temp Pulse Resp BP Pulse Ox 99 F 95 16 108/65 95 04/18/19 16:40 04/18/19 16:40 04/18/19 16:40 04/18/19 16:40 04/18/19 16:40 Vital Signs - Last 8 Hours Temp Pulse Resp BP Pulse Ox 04/19/19 08:24 98.0 F 104 20 97/68 97 04/19/19 07:00 97 04/19/19 04:31 98.3 F 103 22 101/71 95 Intake and Output 04/18/19 04/19/19 04/19/19 23:59 07:59 15:59 Intake Total 1110.1 / 1110.1 Balance 1110.1 / 1110.1 Intake: IV Fluids 1110.1 / 1110.1 HumuLIN R 10 UNIT In Normal 10.1 / 10.1 Saline Flush 10 ML @ 1212 mls/ hr IV ONCE ONE Rx#:[id number] 0.9 % Sodium Chloride 1,000 ML 1000 / 1000 @ 3750 mls/hr IVC .Q16M ONE Rx# :[id number] Calcium Gluconate 1gm/50mL 1 gm 100 / 100 In 50 ml @ 100 mls/hr IVPB Q30M YOBNAI Rx#:[id number] Other: Stool Size Copious Stool Consistency liquid Stool Color Brown # Bowel Movements 1 Weight 120.2 kg 121.3 kg Blood Glucose* 267 133 Patient Weight 04/19/19 23:59 Weight 121.3 kg - General Appearance General appearance: well-developed, well-nourished, obese Exam: The patient was asleep upon entering the room, but was easily awakened. He has excoriations over his body and myoclonic jerking during the interview. EENT: ATNC Neck: supple Respiratory: clear Cardiology: edema (Trace edema) Additional Comments: Patient was tachycardic Gastrointestinal: no tenderness, obese Integumentary: warm and dry, hyperpigmentation, chronic venous stasis Additional Comments: Patient had multiple excoriations over his body especially on his lower legs and his abdomen that appear to be from scratching. His lower legs there appeared to be venous stasis changes. Neurologic: alert and oriented x3 Musculoskeletal: no cyanosis Psychiatric: mood/affect appropriate Results - Lab Results 04/19/19 03:30 04/19/19 03:30 Most recent lab results 04/19/19 04/19/19 01:05 03:30 Calcium 8.7 8.8 Consult Discharge Plan - Plan Referrals: Morris Medina MD [Primary Care Provider] -
[2019-04-19] MEDS ORDERED: *HR* Heparin 5,000 UNIT/ML VIAL IVP ONE (10:15)
[2019-04-19] MEDS ORDERED: *HR* Heparin 5,000 UNIT/ML VIAL IVP PRN (10:15)
[2019-04-19 10:59] LABS: Bilirubin,Urine Negative (Negative); Blood,Urine Large (Negative); Clarity,Urine Clear (Clear); Color,Urine Dark Yellow (Yellow); Glucose,Urine (UA) Normal (Normal); Ketones,Urine Trace mg/dL (Negative); Leukocyte Esterase,Urine Large (Negative); Nitrite,Urine Negative (Negative); PH,Urine 5.5 pH Units (5.0-8.0); Protein,Urine 100 mg/dL (Neg-Trace); Specific Gravity,Urine 1.019 (1.010-1.025); Urobilinogen,Urine Normal (Normal)
[2019-04-19] MEDS: Sodium Bicarbonate 75 MEQ in 0.45 % Sodium Chloride 1,000 ML IVC SCH ×2 (11:00→18:09)
[2019-04-19 11:01] LABS: Bacteria,Urine None Seen per hpf (None-Few); Hyaline Casts,Urine None Seen per lpf (None-Few); Squamous Epithelial Cell,Urine None Seen per lpf (None-Few); WBC,Urine TNTC per hpf (0-3)
[2019-04-19 11:10] LABS: Hematocrit 27.2 % (37.5-50.1); Hemoglobin 8.5 g/dL (12.9-16.9); Mean Corpuscular HGB Conc 31.3 g/dL (31.6-35.5); Mean Corpuscular Hemoglobin 30.1 pg (28.0-33.3); Mean Corpuscular Volume 96.5 fL (83.0-100.0); Mean Platelet Volume 10.1 fL (9.4-12.4); Platelet Count 144 K/mcL (140-400); Red Blood Count 2.82 M/mcL (4.19-5.50); Red Cell Distribution Width 14.3 % (11.5-14.5); White Blood Count 7.4 K/mcL (4.3-11.1)
[2019-04-19 11:11] LABS: Immature Reticulocyte % 10.7 % (11.0-38.0); Retculocyte # 0.04 M/mcL (0.05-0.10); Reticulocyte % 1.4 % (1.6-2.8)
--- NOTE | 2019-04-19 11:17 | Internal Med Progress Note ---
Hospitalist Progress Note - Encounter Date of Encounter: 04/19/19 Time of Encounter: 11:20 - Subjective Interval History: Patient seen and examined earlier today with family and RN present at bedside. Patient resting in bed and states he feels better since his arrival to the hospital. He denies any shortness of breath or chest pain. No abdominal pain reported, however patient states he has not voided since the bradley was removed as outpatient, which was four days ago. A stat bradley was placed this morning and 150cc of urine was recorded. Pt is also noted to have elevated troponin levels but he denies any palpitations or chest pain. No prior hx of CAD reported. Pt to undergo emergent HD today Ten point ROS is negative except as listed above - Exam Vitals: Temp Pulse Resp BP Pulse Ox 98.3 F 104 20 104/72 98 04/19/19 10:59 04/19/19 10:59 04/19/19 10:59 04/19/19 10:59 04/19/19 10:59 Exam: General: No acute distress, AAO x 3, unkept, morbidly obese HEENT: EOMI, PERRLA, NC/AT, no scleral icterus, dry oral mucosa Respiratory: Equal air entry bilaterally, no wheezing, no rales Cardiovascular: Regular, Rate, Rhythm, No murmurs GI: Soft, Non tender, non distended, normal bowel sounds Ext: LE edema, no tenderness, positive pulses, skin excoriations and scabbing on bilateral distal lower extremities Neuro: AAO x 3, no focal deficits Rest of the clinical exam is noncontributory - Summary of Assessment and Plan Summary of Assessment and Plan: Patient is a 78y/o male with reported hx of HTN, CKD, DM who is admitted for acute renal failure. Assessment/Plan: 1. Acute renal failure Nephrology input appreciated IV fluids pt scheduled for emergency HD today will closely monitor renal function closely monitor I/Os continue bradley support 2. Metabolic acidosis likely secondary to renal failure continue bicarb supplementation 3. Hyperkalemia Improving continue PHYSICIAN COMPENSATION ANALYST as per nephrologty continue tele monitoring closely monitor K levels 4. Elevated TNI Dr. Wetzel(cardiology) consulted likely demand ischemia in the setting of acute renal failure, however given current troponin trend, cardiology evaluation requested 2D echo reviewed continue heparin drip until cardio evaluation continue aspirin tele monitoring patient chest pain free at this time 5. Hyponatremia Resolved continue to closely monitor 6. Rhabdomyolysis Given elevated CPK with reported hx of fall will closely montor CK levels continue IV fluids 7. BPH with concern for urinary outlet obstruction continue home medications continue bradley support outpatient follow up with urology 8. DM type II sliding scale insulin algorithm monitor FS and BG ADA diet 9. HTN BP within acceptable range despite holding home meds holding home dose of lasix, metoprolol, and lisinopril at this time will closely monitor BP 10. LE wound wound care evaluation requested 11. DVT ppx: currently on Heparin drip Care plan discussed with patient/RN/family/consulting provider - Time Spent with Patient Total time spent is greater than 50% in coordination of care (as documented) at patient's floor/unit and/or counseling patient: 45 minutes Greater than 35 minutes Internal Medicine: Result - Labs CBC & Chem 7: 04/19/19 10:55 04/19/19 10:55 Labs: Short CBC 04/18/19 04/19/19 Range/Units 16:59 03:30 WBC 8.8 9.1 (4.3-11.1) K/mcL Hgb 9.4 L 8.5 L (12.9-16.9) g/dL Hct 29.7 L 27.1 L (37.5-50.1) % Plt Count 181 146 (140-400) K/mcL Neutrophils # 7.1 8.1 (1.6-8.9) K/mcL BMP 04/18/19 04/18/19 04/19/19 16:59 19:32 01:05 Sodium 130 L 135 L 136 Potassium 7.5 H* 6.6 H* 6.7 H* Chloride 104 105 105 Carbon Dioxide 15 L 19 L 18 L BUN 107 H 111 H 112 H Creatinine 8.06 H 8.17 H 8.24 H Glucose 171 H 91 158 H Calcium 8.9 9.1 8.7 04/19/19 03:30 Sodium 135 L Potassium 6.4 H Chloride 107 Carbon Dioxide 18 L BUN 109 H Creatinine 8.64 H Glucose 168 H Calcium 8.8 Cardiac Enzymes 04/18/19 04/18/19 04/18/19 Range/Units 16:59 20:28 21:20 Troponin I 0.11 H* 0.09 H* 0.10 H* (< 0.04) ng/mL 04/19/19 04/19/19 Range/Units 03:30 09:12 Troponin I 0.59 H* 2.27 H* (< 0.04) ng/mL Liver Function 04/18/19 Range/Units 16:59 Total Bilirubin 0.3 (0.3-1.0) mg/dL Direct Bilirubin 0.1 (0.0-0.2) mg/dL AST 41 H (13-39) Units/L ALT 32 (7-52) Units/L Alkaline Phosphatase 91 (34-104) Units/L Albumin 3.0 L (3.5-5.7) g/dL Urine 04/19/19 Range/Units 10:45 Urine Color Dark Yellow (Yellow) Urine Clarity Clear (Clear) Urine pH 5.5 (5.0-8.0) pH Units Ur Specific Thurston 1.019 (1.010-1.025) Urine Protein 100 H (Neg-Trace) mg/dL Urine Glucose (UA) Normal (Normal) mg/dL - ABG Interpretation ABG results: PT/INR, D-dimer PT 13.4 Seconds (9.4-12.1) H 04/18/19 18:52 - Impressions Impressions Chest X-Ray 04/18/19 16:49 IMPRESSION: Rotated exam. Minimal left basilar atelectasis or pneumonitis. D/ / Darren Helton MD / Darren Helton MD Interpreting Provider: Darren Helton MD Abdomen/Pelvis CT 04/18/19 20:27 IMPRESSION: 5 mm urolith left renal pelvis without hydronephrosis at this time. Other incidental findings as noted above including ileus. D/ / Darren Salinas MD / Darren Salinas MD Interpreting Provider: Darren Salinas MD Echocardiogram 04/19/19 21:14 Impressions: All LV garcia not well visualized, LV systolic function grossly moderately to severely reduced. Mild concentric left ventricular hypertrophy. Mild left ventricular diastolic dysfunction. Normal right ventricular structure and function. Mildly dilated left atrium. Mild mitral regurgitation. Unable to estimate RVSP due to lack of TR jet. Recommend repeat limited echo with defnity for LVEF and wall motion. Left Ventricular Wall Motion: Rest Echo Findings The apex, apical inferior, mid inferior, basal inferior, apical anterior, mid anterior, basal anterior, apical septal, mid inferior septal, basal inferior septal, apical lateral, mid anterior lateral, basal anterior lateral, mid anterior septal, mid inferior lateral, basal anterior septal and basal inferior lateral garcia were hypokinetic. Findings: Study Quality * Technically sub-optimal due to poor echocardiographic windows. Pt refused to complete study. ECG Findings * Sinus tachycardia. Left Ventricle * All LV garcia not well visualized, LV systolic function grossly moderately to severely reduced. * Normal LV chamber size. * Mild concentric left ventricular hypertrophy. * Mild left ventricular diastolic dysfunction. Right Ventricle * Normal right ventricular structure and function. Left Atrium * Mildly dilated left atrium. Right Atrium * Normal right atrial size. Interatrial Septum * Interatrial septum not well evaluated. Aortic Valve * Aortic valve not well visualized. * Mildly calcified aortic valve leaflets. * No aortic stenosis. * No aortic regurgitation. Mitral Valve * Mild mitral annular calcification * No mitral stenosis. * Mild mitral regurgitation. Tricuspid Valve * Normal tricuspid valve structure. * No tricuspid stenosis. * Trace tricuspid regurgitation. * Unable to estimate RVSP due to lack of TR jet. Pulmonic Valve * Pulmonic valve is not well visualized. * No pulmonic stenosis. * No pulmonic regurgitation. Aorta * Normally sized aortic root. Pericardium * The pericardium appears normal. IVC * The IVC is not well evaluated. Consult Discharge Plan - Plan Referrals: Morris Medina MD [Primary Care Provider] -
[2019-04-19 11:18] LABS: Heparin anti-factor XA UFH 0.02 IU/mL (0.30-0.70)
[2019-04-19 11:19] LABS: INR 1.2; Prothrombin Time 13.6 Seconds (9.4-12.1)
[2019-04-19 11:32] LABS: Albumin 2.7 g/dL (3.5-5.7); Calcium 8.4 mg/dL (8.6-10.3); Phosphorous 8.7 mg/dL (2.7-4.5); Potassium 5.7 mEq/L (3.5-5.1)
[2019-04-19 11:54] LABS: Folate 20.5 ng/mL (3.0-16.0)
[2019-04-19 12:30] LABS: Hepatitis B Surface Antibody < 3.10 mIU/mL
[2019-04-19 12:41] LABS: Hepatitis B Surface Antigen Nonreactive (Nonreactive)
[2019-04-19] MEDS: Diltiazem CD (24hr) 240 MG CAPSULE PO SCH (12:47)
--- NOTE | 2019-04-19 12:51 | Nephrology Procedure Note ---
Date of procedure: 04/19/19 Pre-op diagnosis: Acute Kidney Injury Post-op diagnosis: same Procedure Performed: IJ dialysis catheter Procedure: Attempt at RIJ dialysis catheter placement. Anesthesia: local Surgeon: Kaveh Mabry Was there an research lab assistant present: Yes [employer] Supervisor: Lena Randhawa Estimated blood loss (cc): 5 Specimens collected: none Condition: stable Disposition: floor (Made an attempt for a right IJ dialysis catheter placement. Ultrasound guidance was used and the right internal jugular vein was identified and a picture was taken. Local anesthesia was with 2% lidocaine ultrasound guidance was used to access the right IJ guidewire was placed into the needle, however, was unable to advance.Procedure the patient had significant myoclonus which I do believe, complicated the procedure. After 4 unsuccessful attempts the procedure was aborted. Hemostasis was obtained. Postprocedure imaging with ultrasound did not reveal a hematoma. Interventional radiology was contacted and consulted for hemodialysis line placement. I spoke with the electronic plotting system operator general surgeon earlier who stated that they were unable to place hemodialysis lines.)
[2019-04-19] MEDS ORDERED: Heparin 1,000 UNITS/500 mL 500 ML ONE (14:12)
[2019-04-19] MEDS ORDERED: 0.9 % Sodium Chloride 250 ML IVC PRN (14:29)
[2019-04-19] MEDS ORDERED: *HR* Heparin 10,000 UNIT/10 ML VIAL IV PRN (14:29)
[2019-04-19] MEDS ORDERED: 0.9 % Sodium Chloride 1,000 ML PRIME SCH (14:30)
[2019-04-19] MEDS ORDERED: *HR* LORazepam 2 MG/ML VIAL IVP ONE (14:35)
--- NOTE | 2019-04-19 14:37 | Event Note ---
Date of Encounter: 04/19/19 Time of Encounter: 14:36 Responded to rapid response called in interventional radiology lab. Patient apparently became briefly nonresponsive and was turning cyanotic. By the time I arrived, internal medicine and ER residents were already helping care for the patient and he had recovered. Patient had some twitching-like activity. Since he did not have his history of seizures, 1 mg of Ativan was ordered. Interventional radiologist and automation control technician were present in the lab. Family member later reported that the patient has had twitching even before but did not have episodes of nonresponsiveness like he did. Signed out to patient's attending provider when she arrived at patient's bedside.
--- NOTE | 2019-04-19 14:57 | IR Procedure Note ---
Date of procedure: 04/19/19 Consent Obtained: Written consent Timeout: Correct patient and procedure verified, Correct site verified, Time out performed, Skin prep completed Local anesthetic: Lidocaine 1% Was there an application assistant present: No Results/Findings: left IJ 28 cm tempcath ok to use Estimated blood loss (cc): 0 Complications: other (unresponsive prior to procedure, RR called, bag mask ventilation started, patient stabilized and procedure performed.) Indications: needs dialysis, KRYSTA Procedure Performed: left IJ Tempcath Site/Technique: left IJ Results/Findings (any specimens removed): NA Post Procedure Treatment Plan: ok to use catheter, patient to dialysis Specimen: NA
[2019-04-19] MEDS: Heparin 25,000 UNIT/250 ML D5W 25,000 UNIT/250 ML IV.SOLN IVC SCH (16:33)
[2019-04-19] MEDS ORDERED: 0.9 % Sodium Chloride 1,000 ML ONE (17:06)
[2019-04-19 18:21] LABS: Potassium 4.2 mEq/L (3.5-5.1)
[2019-04-19 23:14] LABS: Calcium 7.9 mg/dL (8.6-10.3); Potassium 4.3 mEq/L (3.5-5.1)
[2019-04-20] MEDS: Sodium Bicarbonate 75 MEQ in 0.45 % Sodium Chloride 1,000 ML IVC SCH ×2 (00:03→06:50)
[2019-04-20 04:21] LABS: Basophils % 0.3 %; Eosinophils # 0.4 K/mcL (0.0-0.6); Eosinophils % 6.5 %; Hematocrit 24.5 % (37.5-50.1); Hemoglobin 7.7 g/dL (12.9-16.9); Immature Granulocytes % 0.6 % (0-4); Lymphocytes # 0.5 K/mcL (0.6-4.6); Lymphocytes % 6.8 %; Mean Corpuscular HGB Conc 31.4 g/dL (31.6-35.5); Mean Corpuscular Hemoglobin 29.6 pg (28.0-33.3); Mean Corpuscular Volume 94.2 fL (83.0-100.0); Monocytes # 0.6 K/mcL (0.0-1.3); Monocytes % 9.2 %; Neutrophils # 5.1 K/mcL (1.6-8.9); Platelet Count 116 K/mcL (140-400); Red Cell Distribution Width 14.3 % (11.5-14.5); Segmented Neutrophils % 76.6 %; White Blood Count 6.6 K/mcL (4.3-11.1)
[2019-04-20] MEDS: *HR* Heparin 5,000 UNIT/ML VIAL IVP PRN (04:33)
[2019-04-20 04:42] LABS: Calcium 7.7 mg/dL (8.6-10.3); Chol/HDL Ratio 2.1 (0-4.9); Phosphorous 6.9 mg/dL (2.7-4.5); Potassium 4.2 mEq/L (3.5-5.1)
[2019-04-20] MEDS ORDERED: Perflutren Lipid Microsphere 1.3 ML in 0.9 % Sodium Chloride 8.7 ML IVP ONE (07:42)
[2019-04-20] MEDS: Diltiazem CD (24hr) 240 MG CAPSULE PO SCH (07:45)
[2019-04-20] MEDS: Aspirin 81 MG TAB.CHEW PO SCH (07:45)
[2019-04-20] MEDS: Finasteride 5 MG TABLET PO SCH (07:45)
[2019-04-20] MEDS: Insulin LISPRO 300 UNITS/3 ML VIAL SQ SCH ×3 (07:50→16:48)
[2019-04-20] MEDS ORDERED: *HR* LORazepam 2 MG/ML VIAL IVP ONE (08:24)
--- NOTE | 2019-04-20 08:40 | Cardiology Consult Note ---
<Omar Mireles R - Last Filed: 04/20/19 09:19> Date of Encounter: 04/20/19 Time of Encounter: 08:37 Assessment and Plan (1) NSTEMI (non-ST elevated myocardial infarction) Current Visit: Yes Status: Acute Initial troponin 0.10 and has uptrended to 11.78. Will continue to check until downtrending. Type I vs Type II NSTEMI in setting of KRYSTA on CKD--creatinine 8.06, hyperkalemia with K 7.5. Nephrology was consulted and dialysis initiated. Pt denies chest pain or dyspnea. ECG incomplete LBBB, new compared to 2005. No acute ischemic changes. Heparin gtt started 04/19. HGB was 9.4 on admission, now 7.7. Discussed with Dr. Rhodes. Will trend H&H [id number]. If continues to downtrend on next check, will stop heparin gtt. Recommend transfuse to keep HGB >8. 04/2018 HGB was 13 and has continued to gradually downtrend over the past year. Recommend GI consult/evaluation. TTE completed--All LV garcia not well visualized, LV systolic function grossly moderately to severely reduced. Mild cLVH. Mild LVDD. Normal RV structure and function. Mildly dilated LA. Mild MR. Unable to estimate RVSP due to lack of TR jet. Repeat limited echo with definity ordered to evaluate LVEF and wall motion. On ASA. Start Statin. Given reduced EF will stop Cardizem and start BB. Discussed LHC once stable from a GI and nephrology standpoint. R/B/A discussed. Pt states he will consider. Will continue to follow. (2) Cardiomyopathy Current Visit: Yes Status: Acute TTE LV systolic function grossly moderately to severely reduced. Repeat limited echo with definity ordered to evaluate LVEF and wall motion. ICMP vs CMP. As above, LHC once clinical course allows. Start BB. No ACEi/ARB d/t KRYSTA on CKD with dialysis being initiated. Qualifiers: Cardiomyopathy type: unspecified Qualified Code(s): I42.9 - Cardiomyopathy, unspecified Discussion w patient/family: The assessment and plan as outlined above was discussed with the patient and/or family members who expressed understanding and agreement. All questions were answered. Thank you for involving us in the care of your patient. Please call with any questions. I will discuss all the above with Dr. Rhodes and make changes as necessary. History of Present Illness Consult date: 04/20/19 Requesting physician: Yelitza Brock Consult reason: NSTEMI Chief complaint: dizziness History of present illness: Mr. Galvan is a 78 year old male a PMH of DM and CKD who presented to [facility] ED on 04/18/19 after presyncopal episode at home associated with a fall. He was sitting on his front porch when he stood up and experienced lightheadedness and dizziness, and had a subsequent fall. Denied loss of consciousness or head trauma. Presented to ED and found to have KRYSTA on CKD--creatinine 8.06, hyperkalemia with K 7.5. Nephrology was consulted and dialysis initiated. Initial troponin 0.10 and has uptrended to 11.78--continues to uptrend. Pt denies chest pain or dyspnea. Reports BLE edema. Denies CAD hx. TTE complet ed--All LV garcia not well visualized, LV systolic function grossly moderately to severely reduced. Mild cLVH. Mild LVDD. Normal RV structure and function. Mildly dilated LA. Mild MR. Unable to estimate RVSP due to lack of TR jet. Recommend repeat limited echo with defnity for LVEF and wall motion. Past Med Surg Social Fam HX - Past Medical History Medical history: diabetes, renal disease Psychiatric history: no psych history - Past Surgical History Surgical History: herniorrhaphy, knee replacement - Social History Smoking Status: Former smoker Smokeless Tobacco Status: No Alcohol use: none Drug use: none - Family History Brother Living Status: Hx Family Cardiac Disorders: Yes Hx Family Cancer: Yes Sister Hx Family Respiratory Disorders: Yes Medications and Allergies Aspirin [Lo-Dose Aspirin EC] 81 mg PO DAILY 04/18/19 [History] Citalopram Hydrobromide [Citalopram HBr] 40 mg PO DAILY 04/18/19 [History] Finasteride [Proscar] 5 mg PO DAILY 04/18/19 [History] Furosemide [Lasix] 20 mg PO DAILY 04/18/19 [History] Insulin Glargine [Lantus] 40 unit SQ HS 04/18/19 [History] Lisinopril [Zestril] 10 mg PO DAILY 04/18/19 [History] Metoprolol Tartrate 100 mg PO BID 04/18/19 [History] Simvastatin [Zocor] 20 mg PO HS 04/18/19 [History] Tamsulosin [Flomax] 0.4 mg PO BID 04/18/19 [History] dilTIAZem HCl [Diltiazem ER] 240 mg PO DAILY 04/18/19 [History] Allergy/AdvReac Type Severity Reaction Status Date / Time No Known Allergies Allergy Verified 04/18/19 16:48 All Systems Review: The remainder of the systems were reviewed and are negative - Cardiovascular Cardiovascular: as per HPI, lightheadedness Physical Examination Vital Signs, Last 4 Hours Temp Pulse Resp BP Pulse Ox 04/20/19 08:04 97.8 F 18 115/71 97 04/20/19 08:02 81 04/20/19 08:00 97 Vital Signs Temp Pulse Resp BP Pulse Ox 04/20/19 08:04 97.8 F 18 115/71 97 04/20/19 08:02 81 04/20/19 08:00 97 04/20/19 04:24 98.0 F 84 19 99/71 100 04/20/19 03:56 14 105/59 96 04/19/19 23:46 97.8 F 94 15 105/59 97 04/19/19 23:06 15 124/61 98 04/19/19 19:49 97.5 F L 93 19 124/61 100 04/19/19 18:27 97.9 F 96 18 100 04/19/19 17:38 97.4 F L 20 105/87 04/19/19 17:20 104/89 04/19/19 17:05 138/75 04/19/19 16:50 118/85 04/19/19 16:35 103/58 04/19/19 16:20 101/56 04/19/19 16:05 100/53 04/19/19 15:50 97/58 04/19/19 15:35 102/67 04/19/19 15:20 97.5 F L 22 107/53 04/19/19 11:00 102 04/19/19 10:59 98.3 F 104 20 104/72 98 Intake and Output 04/19/19 04/20/19 04/20/19 23:59 07:59 15:59 Intake Total 56.6 / 1981.6 2198.5 / 2198.5 Output Total 600 / 1075 30 / 30 Balance -543.4 / 906.6 2168.5 / 2168.5 Intake: IV Fluids 56.6 / 1141.6 2198.5 / 2198.5 Heparin 25,000 UNIT/250 ML D5W 56.6 / 56.6 48.5 / 48.5 25,000 unit In 250 ml @ 8 UNIT/ KG/HR 9.704 mls/hr IVC .Q24H [facility] Rx#:[id number] Sodium Bicarbonate 75 MEQ In 0. 2150 / 2150 45% Sodium Chloride 1000 Ml 1000 Ml 1,000 ML @ 175 mls/hr IVC .Q6H9M [facility] Rx#:[id number] Output: Urine 30 30 Total Dialysis (HD) Output 600 / 600 Other: Weight 123.9 kg Blood Glucose* 117 87 Hemodialysis Net Fluid Removed 0 (mL) Patient Weight 04/20/19 23:59 Weight 123.9 kg General: Conversant, No Apparent Distress HEENT: Atraumatic, Normocephaly, Mucus Membranes Moist Neck: No JVD, Normal carotid pulses Cardiac: Reg Rate and Rhythm, Normal S1 and S2, No Murmur Lungs: Normal Breath Sounds, No Wheeze, Rales, Rhonchi Neuro: Alert and responsive, No focal deficits noted Abdomen: Soft, Non-Tender Skin: No rashes noted on visualized skin Musculoskeletal: No Chest Wall Tenderness Extremities: Other (mild BLE edema) Results 04/20/19 04:08 04/20/19 04:08 Lab Results 04/19/19 04/19/19 04/19/19 09:12 10:55 10:55 WBC 7.4 Hgb 8.5 L Hct 27.2 L Plt Count 144 INR Sodium 137 Potassium 5.7 H Chloride 107 Carbon Dioxide 17 L BUN 109 H Creatinine 8.48 H Glucose 138 H Calcium 8.4 L Magnesium Troponin I 2.27 H* 04/19/19 04/19/19 04/19/19 10:55 15:15 17:25 WBC Hgb Hct Plt Count INR 1.2 Sodium 136 Potassium 4.2 D Chloride 102 Carbon Dioxide 24 BUN 62 H Creatinine 4.96 H Glucose 124 H Calcium 8.0 L Magnesium Troponin I 5.85 H* 04/19/19 04/19/19 04/20/19 22:42 22:42 04:08 WBC 6.6 Hgb 7.7 L Hct 24.5 L Plt Count 116 L INR Sodium 135 L Potassium 4.3 Chloride 101 Carbon Dioxide 24 BUN 67 H Creatinine 5.96 H Glucose 117 H Calcium 7.9 L Magnesium Troponin I 9.94 H* 04/20/19 04/20/19 04:08 04:08 WBC Hgb Hct Plt Count INR Sodium 137 Potassium 4.2 Chloride 101 Carbon Dioxide 25 BUN 70 H Creatinine 5.98 H Glucose 97 Calcium 7.7 L Magnesium 2.0 Troponin I 11.78 H* Short CBC 04/20/19 04/19/19 Range/Units 04:08 10:55 WBC 6.6 7.4 (4.3-11.1) K/mcL Hgb 7.7 L 8.5 L (12.9-16.9) g/dL Hct 24.5 L 27.2 L (37.5-50.1) % Plt Count 116 L 144 (140-400) K/mcL Neutrophils # 5.1 (1.6-8.9) K/mcL BMP 04/20/19 04/19/19 04/19/19 Range/Units 04:08 22:42 17:25 Sodium 137 135 L 136 (136-145) mEq/L Potassium 4.2 4.3 4.2 D (3.5-5.1) mEq/L Chloride 101 101 102 (98-107) mEq/L Carbon Dioxide 25 24 24 (23-29) mEq/L BUN 70 H 67 H 62 H (8-23) mg/dL Creatinine 5.98 H 5.96 H 4.96 H (0.70-1.30) mg/dL Glucose 97 117 H 124 H (70-105) mg/dL Calcium 7.7 L 7.9 L 8.0 L (8.6-10.3) mg/dL 04/19/19 Range/Units 10:55 Sodium 137 (136-145) mEq/L Potassium 5.7 H (3.5-5.1) mEq/L Chloride 107 (98-107) mEq/L Carbon Dioxide 17 L (23-29) mEq/L BUN 109 H (8-23) mg/dL Creatinine 8.48 H (0.70-1.30) mg/dL Glucose 138 H (70-105) mg/dL Calcium 8.4 L (8.6-10.3) mg/dL Cardiac Enzymes 04/20/19 04/19/19 04/19/19 Range/Units 04:08 22:42 15:15 Troponin I 11.78 H* 9.94 H* 5.85 H* (< 0.04) ng/mL 04/19/19 Range/Units 09:12 Troponin I 2.27 H* (< 0.04) ng/mL Liver Function 04/19/19 Range/Units 10:55 Albumin 2.7 L (3.5-5.7) g/dL Urine 04/19/19 Range/Units 10:45 Urine Color Dark Yellow (Yellow) Urine Clarity Clear (Clear) Urine pH 5.5 (5.0-8.0) pH Units Ur Specific Clyde 1.019 (1.010-1.025) Urine Protein 100 H (Neg-Trace) mg/dL Urine Glucose (UA) Normal (Normal) mg/dL Impressions Chest X-Ray 04/19/19 00:00 IMPRESSION: Tip of the left-sided central venous catheter projects over the cavoatrial junction. No evidence of pneumothorax. Unchanged findings of mild pulmonary interstitial edema. No significant pleural effusion. D/ / 04/19/2019 15:29:58 José Mccarty MD / stephani Interpreting Provider: José Mccarty MD Echocardiogram 04/19/19 21:14 Impressions: All LV garcia not well visualized, LV systolic function grossly moderately to severely reduced. Mild concentric left ventricular hypertrophy. Mild left ventricular diastolic dysfunction. Normal right ventricular structure and function. Mildly dilated left atrium. Mild mitral regurgitation. Unable to estimate RVSP due to lack of TR jet. Recommend repeat limited echo with defnity for LVEF and wall motion. Left Ventricular Wall Motion: Rest Echo Findings The apex, apical inferior, mid inferior, basal inferior, apical anterior, mid anterior, basal anterior, apical septal, mid inferior septal, basal inferior septal, apical lateral, mid anterior lateral, basal anterior lateral, mid anterior septal, mid inferior lateral, basal anterior septal and basal inferior lateral garcia were hypokinetic. Findings: Study Quality * Technically sub-optimal due to poor echocardiographic windows. Pt refused to complete study. ECG Findings * Sinus tachycardia. Left Ventricle * All LV garcia not well visualized, LV systolic function grossly moderately to severely reduced. * Normal LV chamber size. * Mild concentric left ventricular hypertrophy. * Mild left ventricular diastolic dysfunction. Right Ventricle * Normal right ventricular structure and function. Left Atrium * Mildly dilated left atrium. Right Atrium * Normal right atrial size. Interatrial Septum * Interatrial septum not well evaluated. Aortic Valve * Aortic valve not well visualized. * Mildly calcified aortic valve leaflets. * No aortic stenosis. * No aortic regurgitation. Mitral Valve * Mild mitral annular calcification * No mitral stenosis. * Mild mitral regurgitation. Tricuspid Valve * Normal tricuspid valve structure. * No tricuspid stenosis. * Trace tricuspid regurgitation. * Unable to estimate RVSP due to lack of TR jet. Pulmonic Valve * Pulmonic valve is not well visualized. * No pulmonic stenosis. * No pulmonic regurgitation. Aorta * Normally sized aortic root. Pericardium * The pericardium appears normal. IVC * The IVC is not well evaluated. Active Medications Aspirin (Aspirin) 81 mg PO DAILY [facility] Stop: 10/20/19 09:01 Last Admin: 04/20/19 07:45 Dose: 81 mg Documented by: Citalopram Hydrobromide (Celexa) 40 mg PO DAILY [facility] Stop: 10/19/19 09:01 Last Admin: 04/20/19 07:44 Dose: 40 mg Documented by: Dextrose/Water (Dextrose 50% (Syg)) 25 ml IVP AD PRN PRN Reason: Hypoglycemia Stop: 10/18/19 21:16 Diltiazem HCl (Cardizem Cd) 240 mg PO DAILY [facility] Stop: 10/19/19 11:16 Last Admin: 04/20/19 07:45 Dose: 240 mg Documented by: Diphenhydramine HCl (Benadryl) 25 mg PO Q8HR PRN PRN Reason: Insomnia Stop: 10/19/19 00:40 Last Admin: 04/19/19 00:56 Dose: 25 mg Documented by: Finasteride (Proscar) 5 mg PO DAILY [facility]; Protocol Stop: 10/19/19 09:01 Last Admin: 04/20/19 07:45 Dose: 5 mg Documented by: Glucagon (Glucagen) 1 mg IM ONCE PRN PRN Reason: Hypoglycemia Stop: 10/18/19 21:16 Glucose (Gluctose) 15 gm PO ONCE PRN PRN Reason: Hypoglycemia Stop: 10/18/19 21:16 Glucose (Gluctose) 30 gm PO ONCE PRN PRN Reason: Hypoglycemia Stop: 10/18/19 21:16 Heparin Sodium (Porcine) (Heparin) 4,000 unit IVP Q6HR PRN PRN Reason: SEE COMMENTS Stop: 10/19/19 10:16 Heparin Sodium (Porcine) (Heparin) 2,000 unit IVP Q6H PRN PRN Reason: SEE COMMENTS Stop: 10/19/19 10:16 Last Admin: 04/20/19 04:33 Dose: 2,000 unit Documented by: Dextrose (Dextrose 5%) 1,000 mls @ 100 mls/hr IVC .Q10H PRN PRN Reason: HYPOGLYCEMIA Stop: 10/18/19 21:16 Sodium Bicarbonate 75 meq/ (Sodium Chloride) 1,075 mls @ 175 mls/hr IVC .Q6H9M [facility] Stop: 10/19/19 10:16 Last Admin: 04/20/19 06:50 Dose: 175 mls/hr Documented by: Heparin Sodium/Dextrose (Heparin 25,000 Unit/250 Ml D5w) 25,000 unit in 250 mls @ 9.704 mls/hr IVC .Q24H [facility]; Protocol Stop: 10/19/19 10:16 Last Titration: 04/20/19 04:32 Dose: 10 unit/kg/hr, 12.1 mls/hr Documented by: Sodium Chloride (0.9 % Sodium Chloride) 250 mls @ 937.5 mls/hr IVC .Q16M PRN PRN Reason: Hypotension Stop: 10/19/19 14:30 Sodium Chloride (0.9 % Sodium Chloride) 1,000 mls @ 0 mls/hr PRIME .Q0M [facility] Stop: 10/19/19 14:31 Insulin Human Lispro (Humalog) 0 units SQ TIDAC [facility]; Protocol Stop: 10/19/19 07:31 Last Admin: 04/20/19 07:50 Dose: Not Given Documented by: Naloxone HCl (Narcan) 0.4 mg IVP Q2MPRN PRN PRN Reason: SEE COMMENTS Stop: 10/18/19 21:11 Ondansetron HCl (Zofran) 4 mg IVP Q4H PRN; Protocol PRN Reason: Nausea Stop: 10/18/19 21:46 Last Admin: 04/18/19 22:20 Dose: 4 mg Documented by: Simvastatin (Zocor) 20 mg PO HS [facility]; Protocol Stop: 10/19/19 21:01 Last Admin: 04/19/19 20:32 Dose: 20 mg Documented by: Sodium Polystyrene Sulfonate (Kayexalate) 15 gm PO 1500 [facility] Stop: 10/19/19 15:01 Last Admin: 04/19/19 18:09 Dose: 15 gm Documented by: Tamsulosin HCl (Flomax) 0.4 mg PO BID [facility]; Protocol Stop: 10/19/19 09:01 Last Admin: 04/20/19 07:45 Dose: 0.4 mg Documented by: - Imaging and Cardiology Echo: report reviewed - EKG Interpretation EKG results cardiology: personally reviewed, other (12 hr tele AVG HR 83, no significant pauses or arrhythmias.) Consult Discharge Plan - Plan Referrals: Morris Medina MD [Primary Care Provider] - <Elvis Rhodes - Last Filed: 04/20/19 13:30> Date of Encounter: 04/20/19 - Attending Attestation Patient was seen and evaluated independently by me. Findings, assessment and plan were discussed at length with patient and family, questions answered. Agree with nurse practitioner's/resident's documentation. Addition as follows, 78yoCM ho CKD, DM w/o known CAD. P/w fall with nearsyncope. Imp uremia, hyperkalemia, severe AGMA due to KRYSTA on CKD of unclear eitology requiring urgent HD via temp cathter. C/b NSTEMI trop max 12 downtrending, BNP 800s, ECG SR, IVCD, PVC, same inferior injury pattern on serial ECGs. Tele SR, PVC, no VT. TTE EF 25-30%, global, paul inferior, mild LVH, mild DD, RV nl, mild LAE, mild MR, no TR jet. Denied chest pain, dyspnea, palpitations. HD stable, AAO, CTA B/L, IR, no M/G/R, abd NT, B/L LE diffuse ecchymoses Hb 8s from baseline 10s 1 month ago, PLT 116, K 4.2, Cr 6 A: Uremia, hyperkalemia, severe AGMA due to KRYSTA on CKD of unclear eitology, s/p urgent HD via temp cathter Unclear whether pt needs long-term HD, Dr Mabry from nephrology plans permacath HD catheter tomorrow before LHC given need for interruption of DAPT on THUAN for permacath NSTEMI, type II vs I. No chest pain, HD instability, dynamic ST or VT. HFrEF, unclear duration/acuity, euvolemia s/p HD Moderate anemia, subacute or acute, Hb stable at 8s, no GIB w/u P: - c/w heparin drip, ASA, BB, statin - trop x1, ECG Regarding order of events: - discussed with Dr Esparza (intervention) and Dr Mabry (Nephrology) - urgent LHC today if chest pain, HD instability, dynamic ST or VT on tele - otherwise, permacath HD catheter by nephrology or IR, the LHC w/ possible intervention (DAPT) - need GI consult for anemia All above communicated with patient and family Elvis Rhodes MD, PhD Assessment and Plan Discussion w patient/family: The assessment and plan as outlined above was discussed with the patient and/or family members who expressed understanding and agreement. All questions were answered. Thank you for involving us in the care of your patient. Please call with any questions. History of Present Illness History of present illness: Mr. Galvan is a 78 year old male All Systems Review: The remainder of the systems were reviewed and are negative Physical Examination Vital Signs, Last 4 Hours Temp Pulse Resp BP Pulse Ox 04/20/19 11:18 97.9 F 94 18 104/65 100 Results 04/20/19 09:30 04/20/19 04:08 Lab Results 04/19/19 04/19/19 04/19/19 15:15 17:25 22:42 WBC Hgb Hct Plt Count Sodium 136 Potassium 4.2 D Chloride 102 Carbon Dioxide 24 BUN 62 H Creatinine 4.96 H Glucose 124 H Calcium 8.0 L Magnesium Troponin I 5.85 H* 9.94 H* 04/19/19 04/20/19 04/20/19 22:42 04:08 04:08 WBC 6.6 Hgb 7.7 L Hct 24.5 L Plt Count 116 L Sodium 135 L 137 Potassium 4.3 4.2 Chloride 101 101 Carbon Dioxide 24 25 BUN 67 H 70 H Creatinine 5.96 H 5.98 H Glucose 117 H 97 Calcium 7.9 L 7.7 L Magnesium 2.0 Troponin I 04/20/19 04/20/19 04/20/19 04:08 09:30 10:49 WBC Hgb 8.4 L Hct 26.4 L Plt Count Sodium Potassium Chloride Carbon Dioxide BUN Creatinine Glucose Calcium Magnesium Troponin I 11.78 H* 9.98 H*
[2019-04-20 10:28] LABS: Hematocrit 26.4 % (37.5-50.1); Hemoglobin 8.4 g/dL (12.9-16.9)
--- NOTE | 2019-04-20 11:08 | Internal Med Progress Note ---
Hospitalist Progress Note - Encounter Date of Encounter: 04/20/19 Time of Encounter: 10:54 - Subjective Interval History: Patient seen and examined earlier this morning. patient resting in bed and AAO x 3. Currently saturating well on nasal cannula. Denies any chest pain or shortness of breath. Pt was noted to have generalized shakes while in IR yesterday afternoon, pt has chronic hx of generalized tremors. No overnight events reported. Ten point ROS is negative except as listed above Given uptrend in troponin, I had and extensive conversation with the industrial training specialist in regards to patient's treatment plan. As per cardiology, patient does not need a LHC at this time due to concern for acute bleeding. Heparin drip is to be continued unless stool occult is positive or H&H drops further, industrial training specialist said he will closely follow and determine the need to continue heparin. Credit Risk Analyst gave clearance to proceed with LHC from renal stand point. - Exam Vitals: Temp Pulse Resp BP Pulse Ox 97.8 F 81 18 115/71 97 04/20/19 08:04 04/20/19 08:02 04/20/19 08:04 04/20/19 08:04 04/20/19 08:04 Exam: General: No acute distress, AAO x 3, unkept, morbidly obese HEENT: EOMI, NC/AT, no scleral icterus, dry oral mucosa Respiratory: Equal air entry bilaterally, no wheezing, no rales Cardiovascular: Regular, Rate, Rhythm, No murmurs GI: Soft, Non tender, non distended, normal bowel sounds Ext: LE edema, no tenderness, positive pulses, skin excoriations and scabbing on bilateral distal lower extremities Neuro: AAO x 3, no focal deficits Rest of the clinical exam is noncontributory - Summary of Assessment and Plan Summary of Assessment and Plan: Patient is a 78y/o male with reported hx of HTN, CKD, DM who is admitted for acute renal failure. Assessment/Plan: 1. Acute renal failure Nephrology input appreciated IV fluids as per nephrology s/p temporary HD cath placement on 04/19/19 s/p first session of HD yesterday renal function improving will closely monitor renal function closely monitor I/Os continue bradley support 2. Metabolic acidosis likely secondary to renal failure resolved at this time 3. Hyperkalemia resolved closely monitor K levels 4. Elevated TNI Dr. Rhodes(cardiology) consulted extensive conversation held with cardiology. Will defer to cardiology for LHC and continuation of heparin drip as per cardio, patient does not need LHC at this time repeat 2D echo reviewed balance wheel hand filer gave clearance to proceed with LHC from renal stand point 5. Hyponatremia Resolved continue to closely monitor 6. Rhabdomyolysis Given elevated CPK with reported hx of fall will closely montor CK levels, improved from previous day continue IV fluids 7. BPH with concern for urinary outlet obstruction continue home medications continue bradley support outpatient follow up with urology 8. DM type II sliding scale insulin algorithm monitor FS and BG ADA diet 9. HTN BP within acceptable range despite holding home meds holding home dose of lasix, metoprolol, and lisinopril at this time will closely monitor BP 10. LE wound wound care evaluation requested 11. DVT ppx: currently on Heparin drip 12. Acute on chronic anemia concern for acute bleeding given heparin infusion and drop in H&H will closely monitor H&H f/u stool occult if stool occult positive, hold heparin drip Care plan discussed with patient/RN/consulting provider - Time Spent with Patient Total time spent is greater than 50% in coordination of care (as documented) at patient's floor/unit and/or counseling patient: Internal Medicine: Result - Labs CBC & Chem 7: 04/20/19 09:30 04/20/19 04:08 Labs: Short CBC 04/19/19 04/20/19 04/20/19 Range/Units 10:55 04:08 09:30 WBC 7.4 6.6 (4.3-11.1) K/mcL Hgb 8.5 L 7.7 L 8.4 L (12.9-16.9) g/dL Hct 27.2 L 24.5 L 26.4 L (37.5-50.1) % Plt Count 144 116 L (140-400) K/mcL Neutrophils # 5.1 (1.6-8.9) K/mcL BMP 04/19/19 04/19/19 04/19/19 10:55 17:25 22:42 Sodium 137 136 135 L Potassium 5.7 H 4.2 D 4.3 Chloride 107 102 101 Carbon Dioxide 17 L 24 24 BUN 109 H 62 H 67 H Creatinine 8.48 H 4.96 H 5.96 H Glucose 138 H 124 H 117 H Calcium 8.4 L 8.0 L 7.9 L 04/20/19 04:08 Sodium 137 Potassium 4.2 Chloride 101 Carbon Dioxide 25 BUN 70 H Creatinine 5.98 H Glucose 97 Calcium 7.7 L Cardiac Enzymes 04/19/19 04/19/19 04/20/19 Range/Units 15:15 22:42 04:08 Troponin I 5.85 H* 9.94 H* 11.78 H* (< 0.04) ng/mL Liver Function 04/19/19 Range/Units 10:55 Albumin 2.7 L (3.5-5.7) g/dL Urine 04/19/19 Range/Units 10:45 Urine Color Dark Yellow (Yellow) Urine Clarity Clear (Clear) Urine pH 5.5 (5.0-8.0) pH Units Ur Specific Wilson 1.019 (1.010-1.025) Urine Protein 100 H (Neg-Trace) mg/dL Urine Glucose (UA) Normal (Normal) mg/dL - ABG Interpretation ABG results: PT/INR, D-dimer PT 13.6 Seconds (9.4-12.1) H 04/19/19 10:55 - Impressions Impressions Chest X-Ray 04/19/19 00:00 IMPRESSION: Tip of the left-sided central venous catheter projects over the cavoatrial junction. No evidence of pneumothorax. Unchanged findings of mild pulmonary interstitial edema. No significant pleural effusion. D/ / 04/19/2019 15:29:58 José Mccarty MD / [facility] Interpreting Provider: José Mccarty MD Echocardiogram 04/19/19 21:14 Impressions: All LV garcia not well visualized, LV systolic function grossly moderately to severely reduced. Mild concentric left ventricular hypertrophy. Mild left ventricular diastolic dysfunction. Normal right ventricular structure and function. Mildly dilated left atrium. Mild mitral regurgitation. Unable to estimate RVSP due to lack of TR jet. Recommend repeat limited echo with defnity for LVEF and wall motion. Left Ventricular Wall Motion: Rest Echo Findings The apex, apical inferior, mid inferior, basal inferior, apical anterior, mid anterior, basal anterior, apical septal, mid inferior septal, basal inferior septal, apical lateral, mid anterior lateral, basal anterior lateral, mid anterior septal, mid inferior lateral, basal anterior septal and basal inferior lateral garcia were hypokinetic. Findings: Study Quality * Technically sub-optimal due to poor echocardiographic windows. Pt refused to complete study. ECG Findings * Sinus tachycardia. Left Ventricle * All LV garcia not well visualized, LV systolic function grossly moderately to severely reduced. * Normal LV chamber size. * Mild concentric left ventricular hypertrophy. * Mild left ventricular diastolic dysfunction. Right Ventricle * Normal right ventricular structure and function. Left Atrium * Mildly dilated left atrium. Right Atrium * Normal right atrial size. Interatrial Septum * Interatrial septum not well evaluated. Aortic Valve * Aortic valve not well visualized. * Mildly calcified aortic valve leaflets. * No aortic stenosis. * No aortic regurgitation. Mitral Valve * Mild mitral annular calcification * No mitral stenosis. * Mild mitral regurgitation. Tricuspid Valve * Normal tricuspid valve structure. * No tricuspid stenosis. * Trace tricuspid regurgitation. * Unable to estimate RVSP due to lack of TR jet. Pulmonic Valve * Pulmonic valve is not well visualized. * No pulmonic stenosis. * No pulmonic regurgitation. Aorta * Normally sized aortic root. Pericardium * The pericardium appears normal. IVC * The IVC is not well evaluated. Echocardiogram Limited Views 04/20/19 07:30 Impressions: LVEF 25-30%. Severe global left ventricular systolic dysfunction. Grossly normal right ventricular size with mild dysfunction. Cardiology consult notified. Left Ventricular Wall Motion: Rest Echo Findings The apex, apical inferior, mid inferior, basal inferior, apical anterior, mid anterior, basal anterior, apical septal, mid inferior septal, basal inferior septal, apical lateral, mid anterior lateral, basal anterior lateral, mid anterior septal, mid inferior lateral, basal anterior septal and basal inferior lateral garcia were hypokinetic. Findings: Study Quality * Technically adequate exam. ECG Findings * Normal sinus rhythm. Left Ventricle * LVEF 25-30%. * Severe global left ventricular systolic dysfunction. * Mild concentric left ventricular hypertrophy. Right Ventricle * RV not well seen, grossly normal right ventricular size with mild dysfunction. Consult Discharge Plan - Plan Referrals: Morris Medina MD [Primary Care Provider] -
[2019-04-20] MEDS: 0.9 % Sodium Chloride 1,000 ML IVC SCH (11:34)
[2019-04-20 12:54] LABS: Complement C3 121 mg/dL (87-200)
--- NOTE | 2019-04-20 13:02 | Nephrology Progress Note ---
Date of Encounter: 04/20/19 Time of Encounter: 13:02 - Assessment and Plan (1) Acute kidney injury superimposed on chronic kidney disease Current Visit: Yes Status: Acute April 19 2019 Patient has chronic kidney disease that is likely secondary to diabetes and hypertension. He presents with severe acute kidney injury superimposed on chronic kidney disease that is likely multifactorial. The patient gives a history of low to no urine output for several days prior to admission. He also gives a history of decrease oral intake along with nausea and some vomiting prior to his admission. He takes blood pressure medications including a diuretic during the time that he had decreased oral intake and on the day of admission states he was sitting on the son. He presents with a presyncopal episode that clinically I would think is hypovolemia. This hypovolemic shock is likely continuing to his acute kidney injury which at this time is likely acute tubular necrosis given his clinical picture. We will check orthostatic vital signs Since his hyperkalemia responded to medical management will give him aggressive hydration to see if his renal function improves. If the patient is unable to produce urine in the next few hours I will initiate hemodialysis. The patient gives consent for hemodialysis. At this time I am unclear as to why he had the myoclonic jerking. I do not see gabapentin in his medication list. We will defer further investigation to his primary team. The patient has anemia that is likely multifactorial. We will check iron stores, vitamin B12, folate, and a reticulocyte count. Patient can be transfuse as needed. Patient is critically ill with multiple organs failing and life threatening electrolyte abnormalities. April 20 2019 Patient appears much improved. His electrolytes are better. He is mentally better with fewer myoclonic jerks. He denies chest pain or dyspnea. I spoke with Dr. Brock and with Dr. Sanchez, cardiology regarding the plan of care. As the patient will need a cardiac cath and may need ongoing dialysis it would be prudent to place a tunneled catheter in the event that the patient needs antiplatelet therapy if he needs stent placement. This would complicate placing a tunneled catheter later. I will order the tunneled catheter and follow for the need for additional dialysis. (2) Dehydration Current Visit: Yes Status: Acute (3) Diabetes Current Visit: Yes Status: Acute Qualifiers: Qualified Code(s): E11.9 - Type 2 diabetes mellitus without complications (4) Elevated troponin Current Visit: Yes Status: Acute (5) HTN (hypertension) Current Visit: Yes Status: Acute Qualifiers: Qualified Code(s): I10 - Essential (primary) hypertension (6) Hyperkalemia Current Visit: Yes Status: Acute (7) Hyponatremia Current Visit: Yes Status: Acute (8) Near syncope Current Visit: Yes Status: Acute (9) Anemia Current Visit: Yes Status: Acute Qualifiers: Qualified Code(s): D64.9 - Anemia, unspecified (10) Metabolic acidosis Current Visit: Yes Status: Acute (11) BPH (benign prostatic hyperplasia) Current Visit: Yes Status: Acute Qualifiers: Qualified Code(s): N40.0 - Benign prostatic hyperplasia without lower urinary tract symptoms (12) Myoclonus Current Visit: Yes Status: Acute Subjective Principal diagnosis: KRYSTA/CKD Interval history: Patient seen. He is much more alert. He denies chest pain or dyspnea. His family is at his bedside. Objective - Vital Signs Vital signs: Vital Signs Temp Pulse Resp BP Pulse Ox 04/20/19 11:18 97.9 F 94 18 104/65 100 04/20/19 08:04 97.8 F 18 115/71 97 04/20/19 08:02 81 04/20/19 08:00 97 04/20/19 04:24 98.0 F 84 19 99/71 100 04/20/19 03:56 14 105/59 96 04/19/19 23:46 97.8 F 94 15 105/59 97 04/19/19 23:06 15 124/61 98 04/19/19 19:49 97.5 F L 93 19 124/61 100 04/19/19 18:27 97.9 F 96 18 100 04/19/19 17:38 97.4 F L 20 105/87 04/19/19 17:20 104/89 04/19/19 17:05 138/75 04/19/19 16:50 118/85 04/19/19 16:35 103/58 04/19/19 16:20 101/56 04/19/19 16:05 100/53 04/19/19 15:50 97/58 04/19/19 15:35 102/67 04/19/19 15:20 97.5 F L 22 107/53 Intake and Output 04/19/19 04/20/19 04/20/19 23:59 07:59 15:59 Intake Total 56.6 / 1981.6 2198.5 / 2642.5 444 / 2642.5 Output Total 600 / 1075 30 / 30 Balance -543.4 / 906.6 2168.5 / 2612.5 444 / 2612.5 Intake: IV Fluids 56.6 / 1141.6 2198.5 / 2282.5 84 / 2282.5 Heparin 25,000 UNIT/250 ML D5W 56.6 / 56.6 48.5 / 132.5 84 / 132.5 25,000 unit In 250 ml @ 8 UNIT/ KG/HR 9.704 mls/hr IVC .Q24H [facility]OB[facility] Rx#:[id number] Sodium Bicarbonate 75 MEQ In 0. 2150 / 2150 45% Sodium Chloride 1000 Ml 1000 Ml 1,000 ML @ 175 mls/hr IVC .Q6H9M [facility] Rx#:[id number] Oral 360 / 360 Output: Urine 30 / 30 Total Dialysis (HD) Output 600 / 600 Other: Meal Breakfast Percent of Meal Consumed 5% Weight 123.9 kg Blood Glucose* 117 117 Hemodialysis Net Fluid Removed 0 (mL) Patient Weight 04/20/19 23:59 Weight 123.9 kg - General Appearance General appearance: Present: well-developed, well-nourished EENT: Present: ATNC Neck: Present: supple Cardiology: Present: regular rate Dialysis Vascular Access: Venous Catheter Integumentary: Present: warm and dry Neurologic: Present: alert and oriented x3 Musculoskeletal: Present: no cyanosis Psychiatric: Present: mood/affect appropriate - Lab 04/20/19 16:04 04/20/19 04:08 Most recent lab results 04/20/19 04:08 Calcium 7.7 L Phosphorus 6.9 H Magnesium 2.0 Consult Discharge Plan - Plan Referrals: Morris Medina MD [Primary Care Provider] -
[2019-04-20 16:19] LABS: Hemoglobin 8.2 g/dL (12.9-16.9)
[2019-04-20] MEDS: Heparin 25,000 UNIT/250 ML D5W 25,000 UNIT/250 ML IV.SOLN IVC SCH (16:44)
[2019-04-20 22:39] LABS: Hematocrit 26.6 % (37.5-50.1); Hemoglobin 8.3 g/dL (12.9-16.9)
[2019-04-21] MEDS: 0.9 % Sodium Chloride 1,000 ML IVC SCH ×3 (01:09→23:54)
[2019-04-21 03:45] LABS: Basophils % 0.4 %; Eosinophils # 0.6 K/mcL (0.0-0.6); Eosinophils % 8.1 %; Hematocrit 25.2 % (37.5-50.1); Immature Granulocytes % 0.4 % (0-4); Lymphocytes # 0.4 K/mcL (0.6-4.6); Lymphocytes % 6.1 %; Mean Corpuscular HGB Conc 31.7 g/dL (31.6-35.5); Mean Corpuscular Hemoglobin 29.6 pg (28.0-33.3); Mean Corpuscular Volume 93.3 fL (83.0-100.0); Mean Platelet Volume 10.3 fL (9.4-12.4); Monocytes # 0.7 K/mcL (0.0-1.3); Neutrophils # 5.5 K/mcL (1.6-8.9); Platelet Count 119 K/mcL (140-400); Red Cell Distribution Width 13.9 % (11.5-14.5); White Blood Count 7.3 K/mcL (4.3-11.1)
[2019-04-21 03:58] LABS: Calcium 8.1 mg/dL (8.6-10.3); Magnesium 1.9 mg/dL (1.6-2.6); Potassium 3.9 mEq/L (3.5-5.1)
[2019-04-21] MEDS: Finasteride 5 MG TABLET PO SCH (07:07)
[2019-04-21] MEDS: Metoprolol XL (24 HR) Succ 25 MG TAB.ER.24H PO SCH (07:07)
[2019-04-21] MEDS: Aspirin 81 MG TAB.CHEW PO SCH (07:07)
[2019-04-21] MEDS: Insulin LISPRO 300 UNITS/3 ML VIAL SQ SCH ×3 (07:12→17:32)
[2019-04-21] MEDS ORDERED: 0.9 % Sodium Chloride 250 ML IVC PRN (08:08)
[2019-04-21] MEDS ORDERED: *HR* Heparin 10,000 UNIT/10 ML VIAL IV PRN (08:08)
[2019-04-21] MEDS ORDERED: 0.9 % Sodium Chloride 1,000 ML PRIME SCH (08:15)
--- NOTE | 2019-04-21 08:39 | Cardiology Progress Note ---
Date of Encounter: 04/21/19 Time of Encounter: 08:30 Assessment and Plan (1) Acute kidney injury superimposed on chronic kidney disease Current Visit: Yes Status: Acute Per Cardiology: Nephrology following. Discussed with primary service this morning, plan is to hold hep gtt (has been on 48 hrs and CP free) this morning and proceed with tunneled hemodialysis catheter placement today with interventional radiology. (2) NSTEMI (non-ST elevated myocardial infarction) Current Visit: Yes Status: Acute Per Cardiology: Previous records reviewed: "Peak trop 11.78. Type I vs Type II NSTEMI in setting of KRYSTA on CKD--creatinine 8.06, hyperkalemia with K 7.5. Nephrology was consulted and dialysis initiated. ECG incomplete LBBB, new compared to 2005. Heparin gtt started 04/19. HGB was 9.4 on admission, then down to 7.7. 04/2018 HGB was 13 and continued to gradually downtrend over the past year. Recommend GI consult/evaluation". CP free this am. CR C/S placed. On ASA, statin, BB, Hep gtt. currently. Discussed and reviewed with Dr. Esparza, recs are to proceed with HD tunnel cath placement, GI consult, and plan for LHC once other workup complete since patient is clinically stable (CP free and trops downward trend). Discussed with primary service. Dr. Clarisa delgado. Patient and family verbalized understanding and agreed with plan. All questions answered. (3) Cardiomyopathy Current Visit: Yes Status: Acute Per Cardiology: EF 25-30%. On Toprol XL. No ACEi/ARB d/t KRYSTA on CKD with dialysis being initiated. Will implement daily weights, strict I&O. Recommend placed on fluid restriction once diet resumed. According to net I&O, patient +[id number] and up about 7kg. CXR showed mild interstitial pulmonary edema. Will defer diuresis to Nephrology. Qualifiers: Cardiomyopathy type: unspecified Qualified Code(s): I42.9 - Cardiomyopathy, unspecified Discussion w patient/family: The assessment and plan as outlined above was discussed with the patient and/or family members who expressed understanding and agreement. All questions were answered. Thank you for involving us in the care of your patient. Please call with any questions. Subjective Principal diagnosis: KRYSTA/CKD, NSTEMI Interval history: Patient seen with family at bedside. He denies any chest pain overnight. Denies any SOB. Denies any bleeding. Denies any concerns or complaints this morning. Objective Vital Signs, Last 4 Hours Temp Pulse Resp BP Pulse Ox 04/21/19 07:49 98.0 F 102 18 127/57 97 04/21/19 07:00 99 General: Conversant, No Apparent Distress HEENT: Atraumatic, Normocephaly, Mucus Membranes Moist Neck: No JVD, Normal carotid pulses Cardiac: Reg Rate and Rhythm, Normal S1 and S2, No Murmur Lungs: Normal Breath Sounds, No Wheeze, Rales, Rhonchi Neuro: Alert and responsive, No focal deficits noted Abdomen: Soft, Non-Tender Skin: No rashes noted on visualized skin Musculoskeletal: No Chest Wall Tenderness Extremities: No Clubbing, No Cyanosis, No Edema, Normal Pulses Results 04/21/19 03:05 04/21/19 03:05 Lab Results Laboratory Tests 04/18/19 04/18/19 04/19/19 16:59 16:59 10:55 Hgb 9.4 L Hct 29.7 L INR 1.2 Potassium Creatinine Est GFR (Non-Af Amer) Magnesium AST 41 H ALT 32 Troponin I 04/20/19 04/21/19 04/21/19 04:08 03:05 03:05 Hgb 8.0 L Hct 25.2 L INR Potassium 3.9 Creatinine 6.59 H Est GFR (Non-Af Amer) 8 L Magnesium 1.9 AST ALT Troponin I 11.78 H* ITS Impressions Chest X-Ray 04/18/19 16:49 IMPRESSION: Rotated exam. Minimal left basilar atelectasis or pneumonitis. D/ / Darren Helton MD / Darren Helton MD Interpreting Provider: Darren Helton MD Abdomen/Pelvis CT 04/18/19 20:27 IMPRESSION: 5 mm urolith left renal pelvis without hydronephrosis at this time. Other incidental findings as noted above including ileus. D/ / Darren Salinas MD / Darren Salinas MD Interpreting Provider: Darren Salinas MD Chest X-Ray 04/19/19 00:00 IMPRESSION: Tip of the left-sided central venous catheter projects over the cavoatrial junction. No evidence of pneumothorax. Unchanged findings of mild pulmonary interstitial edema. No significant pleural effusion. D/ / 04/19/2019 15:29:58 José Mccarty MD / [facility] Interpreting Provider: José Mccarty MD Echocardiogram 04/19/19 21:14 Impressions: All LV garcia not well visualized, LV systolic function grossly moderately to severely reduced. Mild concentric left ventricular hypertrophy. Mild left ventricular diastolic dysfunction. Normal right ventricular structure and function. Mildly dilated left atrium. Mild mitral regurgitation. Unable to estimate RVSP due to lack of TR jet. Recommend repeat limited echo with defnity for LVEF and wall motion. Left Ventricular Wall Motion: Rest Echo Findings The apex, apical inferior, mid inferior, basal inferior, apical anterior, mid anterior, basal anterior, apical septal, mid inferior septal, basal inferior septal, apical lateral, mid anterior lateral, basal anterior lateral, mid anterior septal, mid inferior lateral, basal anterior septal and basal inferior lateral garcia were hypokinetic. Findings: Study Quality * Technically sub-optimal due to poor echocardiographic windows. Pt refused to complete study. ECG Findings * Sinus tachycardia. Left Ventricle * All LV garcia not well visualized, LV systolic function grossly moderately to severely reduced. * Normal LV chamber size. * Mild concentric left ventricular hypertrophy. * Mild left ventricular diastolic dysfunction. Right Ventricle * Normal right ventricular structure and function. Left Atrium * Mildly dilated left atrium. Right Atrium * Normal right atrial size. Interatrial Septum * Interatrial septum not well evaluated. Aortic Valve * Aortic valve not well visualized. * Mildly calcified aortic valve leaflets. * No aortic stenosis. * No aortic regurgitation. Mitral Valve * Mild mitral annular calcification * No mitral stenosis. * Mild mitral regurgitation. Tricuspid Valve * Normal tricuspid valve structure. * No tricuspid stenosis. * Trace tricuspid regurgitation. * Unable to estimate RVSP due to lack of TR jet. Pulmonic Valve * Pulmonic valve is not well visualized. * No pulmonic stenosis. * No pulmonic regurgitation. Aorta * Normally sized aortic root. Pericardium * The pericardium appears normal. IVC * The IVC is not well evaluated. Echocardiogram Limited Views 04/20/19 07:30 Impressions: LVEF 25-30%. Severe global left ventricular systolic dysfunction. Grossly normal right ventricular size with mild dysfunction. Cardiology consult notified. Left Ventricular Wall Motion: Rest Echo Findings The apex, apical inferior, mid inferior, basal inferior, apical anterior, mid anterior, basal anterior, apical septal, mid inferior septal, basal inferior septal, apical lateral, mid anterior lateral, basal anterior lateral, mid anterior septal, mid inferior lateral, basal anterior septal and basal inferior lateral garcia were hypokinetic. Findings: Study Quality * Technically adequate exam. ECG Findings * Normal sinus rhythm. Left Ventricle * LVEF 25-30%. * Severe global left ventricular systolic dysfunction. * Mild concentric left ventricular hypertrophy. Right Ventricle * RV not well seen, grossly normal right ventricular size with mild dysfunction. Intake & Output 04/18/19 04/19/19 04/20/19 04/21/19 23:59 23:59 23:59 23:59 Intake Total 1110.1 / 1110.1 1981.6 / 1981.6 2962.5 / 2962.5 1000 / 1000 Output Total 1075 / 1075 455 / 455 80 / 80 Balance 1110.1 / 1110.1 906.6 / 906.6 2507.5 / 2507.5 920 / 920 Weight 120.2 kg 121.3 kg 128.8 kg Active Medications Aspirin (Aspirin) 81 mg PO DAILY YOB[facility] Stop: 10/20/19 09:01 Last Admin: 04/21/19 07:07 Dose: Not Given Documented by: Atorvastatin Calcium (Lipitor) 40 mg PO HS YOBANI Stop: 10/20/19 21:01 Last Admin: 04/20/19 21:02 Dose: 40 mg Documented by: Citalopram Hydrobromide (Celexa) 40 mg PO DAILY [facility] Stop: 10/19/19 09:01 Last Admin: 04/21/19 07:07 Dose: 40 mg Documented by: Dextrose/Water (Dextrose 50% (Syg)) 25 ml IVP AD PRN PRN Reason: Hypoglycemia Stop: 10/18/19 21:16 Diphenhydramine HCl (Benadryl) 25 mg PO Q8HR PRN PRN Reason: Insomnia Stop: 10/19/19 00:40 Last Admin: 04/20/19 21:25 Dose: 25 mg Documented by: Finasteride (Proscar) 5 mg PO DAILY YOBANI; Protocol Stop: 10/19/19 09:01 Last Admin: 04/21/19 07:07 Dose: 5 mg Documented by: Glucagon (Glucagen) 1 mg IM ONCE PRN PRN Reason: Hypoglycemia Stop: 10/18/19 21:16 Glucose (Gluctose) 15 gm PO ONCE PRN PRN Reason: Hypoglycemia Stop: 10/18/19 21:16 Glucose (Gluctose) 30 gm PO ONCE PRN PRN Reason: Hypoglycemia Stop: 10/18/19 21:16 Heparin Sodium (Porcine) (Heparin) 4,000 unit IVP Q6HR PRN PRN Reason: SEE COMMENTS Stop: 10/19/19 10:16 Heparin Sodium (Porcine) (Heparin) 2,000 unit IVP Q6H PRN PRN Reason: SEE COMMENTS Stop: 10/19/19 10:16 Last Admin: 04/20/19 04:33 Dose: 2,000 unit Documented by: Heparin Sodium (Porcine) (Heparin) 0 unit IV ONCE PRN PRN Reason: Hemodialysis Catheter Packing Dextrose (Dextrose 5%) 1,000 mls @ 100 mls/hr IVC .Q10H PRN PRN Reason: HYPOGLYCEMIA Stop: 10/18/19 21:16 Heparin Sodium/Dextrose (Heparin 25,000 Unit/250 Ml D5w) 25,000 unit in 250 mls @ 9.704 mls/hr IVC .Q24H [facility]OB[facility]; Protocol Stop: 10/19/19 10:16 Last Admin: 04/20/19 16:44 Dose: 9.98 unit/kg/hr, 12.1 mls/hr Documented by: Sodium Chloride (0.9 % Sodium Chloride) 1,000 mls @ 75 mls/hr IVC .[id number] [facility]OB[facility] Stop: 10/20/19 10:16 Last Admin: 04/21/19 01:09 Dose: 75 mls/hr Documented by: Sodium Chloride (0.9 % Sodium Chloride) 250 mls @ 937.5 mls/hr IVC .Q16M PRN PRN Reason: Hypotension Stop: 10/21/19 08:09 Sodium Chloride (0.9 % Sodium Chloride) 1,000 mls @ 0 mls/hr PRIME .Q0M [facility] Stop: 10/21/19 08:16 Insulin Human Lispro (Humalog) 0 units SQ TIDAC [facility]; Protocol Stop: 10/19/19 07:31 Last Admin: 04/21/19 07:12 Dose: Not Given Documented by: Metoprolol Succinate (Toprol Xl) 25 mg PO DAILY [facility] Stop: 10/21/19 09:01 Last Admin: 04/21/19 07:07 Dose: 25 mg Documented by: Naloxone HCl (Narcan) 0.4 mg IVP Q2MPRN PRN PRN Reason: SEE COMMENTS Stop: 10/18/19 21:11 Ondansetron HCl (Zofran) 4 mg IVP Q4H PRN; Protocol PRN Reason: Nausea Stop: 10/18/19 21:46 Last Admin: 04/18/19 22:20 Dose: 4 mg Documented by: Tamsulosin HCl (Flomax) 0.4 mg PO BID [facility]; Protocol Stop: 10/19/19 09:01 Last Admin: 04/21/19 07:07 Dose: 0.4 mg Documented by: - Imaging and Cardiology Echo: report reviewed Cardiac cath: pending Consult Discharge Plan - Plan Referrals: Morris Medina MD [Primary Care Provider] -
--- NOTE | 2019-04-21 09:16 | Internal Med Progress Note ---
Hospitalist Progress Note - Encounter Date of Encounter: 04/21/19 Time of Encounter: 09:14 - Subjective Interval History: Patient seen and examined earlier this morning with and RN present at bedside. Patient resting in bed and states he feels better compared to previous day. He was able to get out of bed to chair with assistance yesterday. Denies any chest pain or shortness of breath at this time. Patient reports of not being on home oxygen support and currently remains O2 depended. Ten point ROS is negative except as listed above Scheduled for tunnelled HD catheter today by IR GI evaluation requested given anemia Cardiology on board for NSTEMI - Exam Vitals: Temp Pulse Resp BP Pulse Ox 98.0 F 102 18 127/57 97 04/21/19 07:49 04/21/19 07:49 04/21/19 07:49 04/21/19 07:49 04/21/19 07:49 Exam: General: No acute distress, AAO x 3, morbidly obese HEENT: EOMI, NC/AT, no scleral icterus, dry oral mucosa Respiratory: Equal air entry bilaterally, no wheezing, no rales Cardiovascular: Regular, Rate, Rhythm, No murmurs GI: Soft, Non tender, non distended, normal bowel sounds Ext: LE edema, no tenderness, positive pulses, skin excoriations and scabbing on bilateral distal lower extremities, chronic stasis dermatitis on b/l LE Neuro: AAO x 3, no focal deficits Rest of the clinical exam is noncontributory - Summary of Assessment and Plan Summary of Assessment and Plan: Patient is a 78y/o male with reported hx of HTN, CKD, DM who is admitted for acute renal failure. Assessment/Plan: 1. Acute renal failure Nephrology input appreciated IV fluids as per nephrology s/p temporary HD cath placement on 04/19/19 continue [employer] as per nephrology scheduled for tunneled HD later today will closely monitor renal function closely monitor I/Os continue bradley support 2. Metabolic acidosis likely secondary to renal failure resolved at this time 3. Hyperkalemia resolved closely monitor K levels 4. Elevated TNI/NSTEMI continue management as per cardiology GI requested as per copper plater's request GI workup requested prior to proceeding with [facility] 5. Hyponatremia Resolved continue to closely monitor 6. Rhabdomyolysis Given elevated CPK with reported hx of fall will closely montor CK levels, improved from previous day continue IV fluids 7. BPH with concern for urinary outlet obstruction continue home medications continue bradley support outpatient follow up with urology 8. DM type II sliding scale insulin algorithm monitor FS and BG ADA diet 9. HTN BP within acceptable range despite holding home meds holding home dose of lasix, metoprolol, and lisinopril at this time will closely monitor BP 10. LE wound wound care evaluation requested 11. DVT ppx: currently on Heparin drip 12. Acute on chronic anemia concern for acute bleeding given heparin infusion and drop in H&H will closely monitor H&H f/u stool occult if stool occult positive, hold heparin drip GI evaluation requested Care plan discussed with patient/RN/consulting provider/pharmacist/case management/Family - Time Spent with Patient Total time spent is greater than 50% in coordination of care (as documented) at patient's floor/unit and/or counseling patient: 45minutes Greater than 35 minutes Internal Medicine: Result - Labs CBC & Chem 7: 04/21/19 03:05 04/21/19 03:05 Labs: Short CBC 04/20/19 04/20/19 04/20/19 Range/Units 09:30 16:04 21:57 WBC (4.3-11.1) K/mcL Hgb 8.4 L 8.2 L 8.3 L (12.9-16.9) g/dL Hct 26.4 L 26.0 L 26.6 L (37.5-50.1) % Plt Count (140-400) K/mcL Neutrophils # (1.6-8.9) K/mcL 04/21/19 Range/Units 03:05 WBC 7.3 (4.3-11.1) K/mcL Hgb 8.0 L (12.9-16.9) g/dL Hct 25.2 L (37.5-50.1) % Plt Count 119 L (140-400) K/mcL Neutrophils # 5.5 (1.6-8.9) K/mcL BMP 04/21/19 03:05 Sodium 138 Potassium 3.9 Chloride 99 Carbon Dioxide 27 BUN 75 H Creatinine 6.59 H Glucose 108 H Calcium 8.1 L Cardiac Enzymes 04/20/19 04/20/19 Range/Units 10:49 16:04 Troponin I 9.98 H* 8.34 H* (< 0.04) ng/mL - ABG Interpretation ABG results: PT/INR, D-dimer PT 13.6 Seconds (9.4-12.1) H 04/19/19 10:55 Consult Discharge Plan - Plan Referrals: Morris Medina MD [Primary Care Provider] -
[2019-04-21] MEDS ORDERED: Heparin 1,000 UNITS/500 mL 500 ML ONE (11:16)
--- NOTE | 2019-04-21 11:54 | Nephrology Progress Note ---
Date of Encounter: 04/21/19 Time of Encounter: 11:54 - Assessment and Plan (1) Acute kidney injury superimposed on chronic kidney disease Current Visit: Yes Status: Acute April 19 2019 Patient has chronic kidney disease that is likely secondary to diabetes and hypertension. He presents with severe acute kidney injury superimposed on chronic kidney disease that is likely multifactorial. The patient gives a history of low to no urine output for several days prior to admission. He also gives a history of decrease oral intake along with nausea and some vomiting prior to his admission. He takes blood pressure medications including a diuretic during the time that he had decreased oral intake and on the day of admission states he was sitting on the son. He presents with a presyncopal episode that clinically I would think is hypovolemia. This hypovolemic shock is likely continuing to his acute kidney injury which at this time is likely acute tubular necrosis given his clinical picture. We will check orthostatic vital signs Since his hyperkalemia responded to medical management will give him aggressive hydration to see if his renal function improves. If the patient is unable to produce urine in the next few hours I will initiate hemodialysis. The patient gives consent for hemodialysis. At this time I am unclear as to why he had the myoclonic jerking. I do not see gabapentin in his medication list. We will defer further investigation to his primary team. The patient has anemia that is likely multifactorial. We will check iron stores, vitamin B12, folate, and a reticulocyte count. Patient can be transfuse as needed. Patient is critically ill with multiple organs failing and life threatening electrolyte abnormalities. April 20 2019 Patient appears much improved. His electrolytes are better. He is mentally better with fewer myoclonic jerks. He denies chest pain or dyspnea. I spoke with Dr. Brock and with Dr. Sanchez, cardiology regarding the plan of care. As the patient will need a cardiac cath and may need ongoing dialysis it would be prudent to place a tunneled catheter in the event that the patient needs antiplatelet therapy if he needs stent placement. This would complicate placing a tunneled catheter later. I will order the tunneled catheter and follow for the need for additional dialysis. April 21 2019 Patient continues to do well and is without chest pain or dyspnea. Tunneled HD line placed and patient seen on dialysis. Awaiting GI work-up prior to cardiac cath per cardiology. Plan for dialysis as needed. Will add HILARY for anemia. Will check PTH and vitamin D. Start phoslo for phosphate binding. (2) Dehydration Current Visit: Yes Status: Acute (3) Diabetes Current Visit: Yes Status: Acute Qualifiers: Qualified Code(s): E11.9 - Type 2 diabetes mellitus without complications (4) Elevated troponin Current Visit: Yes Status: Acute (5) HTN (hypertension) Current Visit: Yes Status: Acute Qualifiers: Qualified Code(s): I10 - Essential (primary) hypertension (6) Hyperkalemia Current Visit: Yes Status: Acute (7) Hyponatremia Current Visit: Yes Status: Acute (8) Near syncope Current Visit: Yes Status: Acute (9) Anemia Current Visit: Yes Status: Acute Qualifiers: Anemia type: unspecified type Qualified Code(s): D64.9 - Anemia, unspecified (10) Metabolic acidosis Current Visit: Yes Status: Acute (11) BPH (benign prostatic hyperplasia) Current Visit: Yes Status: Acute Qualifiers: Qualified Code(s): N40.0 - Benign prostatic hyperplasia without lower urinary tract symptoms (12) Myoclonus Current Visit: Yes Status: Acute Likely related to uremia. Subjective Principal diagnosis: KRYSTA/CKD, NSTEMI Interval history: Patient seen. He is much more alert. He denies chest pain or dyspnea. His family is at his bedside. Objective - Vital Signs Vital signs: Vital Signs Temp Pulse Resp BP Pulse Ox 04/21/19 11:21 98.1 F 92 18 96 04/21/19 10:00 97 04/21/19 08:00 98 04/21/19 07:49 98.0 F 102 18 127/57 97 04/21/19 07:00 99 04/21/19 03:44 98.9 F 95 18 110/62 95 04/20/19 23:30 98.1 F 98 20 100/62 98 04/20/19 19:00 97.7 F 78 20 112/66 96 04/20/19 16:11 97.9 F 86 17 106/55 93 Intake and Output 04/20/19 04/21/19 04/21/19 23:59 07:59 15:59 Intake Total 320 / 2962.5 1000 / 1183 183 / 1183 Output Total 425 / 455 80 / 80 Balance -105 / 2507.5 920 / 1103 183 / 1103 Intake: IV Fluids 80 / 2362.5 1000 / 1183 183 / 1183 0.9 % Sodium Chloride 1,000 ML 1000 / 1000 @ 75 mls/hr IVC .[id number] [facility] Rx #:[id number] Heparin 25,000 UNIT/250 ML D5W 80 / 212.5 183 / 183 25,000 unit In 250 ml @ 8 UNIT/ KG/HR 9.704 mls/hr IVC .Q24H Y[facility] Rx#:[id number] Oral 240 / 600 Output: Urine 80 / 80 Catheter 425 / 425 Other: Meal Dinner NPO Percent of Meal Consumed 5% Weight 128.8 kg Blood Glucose* 158 105 133 - General Appearance General appearance: Present: well-developed, well-nourished EENT: Present: ATNC Neck: Present: supple Cardiology: Present: edema, regular rate Integumentary: Present: warm and dry Neurologic: Present: alert and oriented x3 Musculoskeletal: Present: no cyanosis Psychiatric: Present: mood/affect appropriate - Lab 04/21/19 03:05 04/21/19 03:05 Most recent lab results 04/21/19 03:05 Calcium 8.1 L Phosphorus 7.0 H Magnesium 1.9 Consult Discharge Plan - Plan Referrals: Kaveh Mabry MD [Partnered Physician] - Morris Medina MD [Primary Care Provider] - 05/13/19 10:00 am
[2019-04-21] MEDS ORDERED: CeFAZolin Premix DUPLEX 2,000 MG/50 ML BAG IVPB ONE (15:10)
--- NOTE | 2019-04-21 15:20 | Gastroenterology Consult Note ---
Date of Encounter: 04/21/19 Time of Encounter: 10:00 - Assessment and plan (1) Anemia Current Visit: Yes Status: Acute Assessment and plan: Hgb 9.4 on admission and 8 today. Continue to monitor CBC and transfuse PRBC as needed. Spoke with Dr. Mabry and he recommends completing EGD and colonoscopy tomorrow. Will discuss with Dr. Mcdonald completing EGD and colonoscopy tomorrow vs EGD only. If plan for EGD and colonoscopy tomorrow: - Clear liquid diet today, no red or purple. - NPO at midnight. - If unable tolerate NuLytely please use MiraLAX prep. - If not clear by 6 AM, give 2 tap water enemas. Qualifiers: Anemia type: unspecified type Qualified Code(s): D64.9 - Anemia, unspecified (2) Acute kidney injury superimposed on chronic kidney disease Current Visit: Yes Status: Acute Assessment and plan: Management per Nephrology. (3) NSTEMI (non-ST elevated myocardial infarction) Current Visit: Yes Status: Acute Assessment and plan: Management per Cardiology. - Time Spent With Patient Total time spent is greater than 50% in coordination of care (as documented) at patient's floor/unit and/or counseling patient: GI History of Present Illness - Data of Consult Patient: new to practice Consult date: 04/21/19 Requesting Physician: Yelitza Brock MD - Consult Narrative Reason for consult: Anemia History of present illness: Mr. Galvan is a 78 year old male with PMHx of DM, CKD who presented to the ED after presyncopal episode associated with fall. He denies fever, chills, chest pain, shortness of breath, abdominal pain, diarrhea, constipation. Creatinine peaked at 8.64 on 04/19. Nephrology is following patient and tunneled line inserted for dialysis. Hemodialysis started on 04/19. Hgb 9.4 on admission and 8 today. Troponin peaked at 11.78 on 04/20 and has started to downtrend. Cardiology plans for [facility] once anemia workup completed. Procedures: None NSAIDs: ASA Anticoagulation: None Past Med Surg Social Fam HX - Past Medical History Medical history: diabetes, renal disease Psychiatric history: no psych history - Past Surgical History Surgical History: herniorrhaphy, knee replacement - Social History Smoking Status: Former smoker Smokeless Tobacco Status: No Alcohol use: none Drug use: none - Family History Brother Living Status: Hx Family Cardiac Disorders: Yes Hx Family Cancer: Yes Sister Hx Family Respiratory Disorders: Yes - Gastrointestinal Gastrointestinal: Present: as per HPI - Constitutional Constitutional: as per HPI - EENT Eyes: as per HPI Ears: Present: as per HPI Nose, mouth and throat: Present: as per HPI - Cardiovascular Cardiovascular ROS: Present: as per HPI - Respiratory Respiratory IM: Present: as per HPI - Genitourinary Genitourinary: Absent: change in color, Urinary frequency - Neurological ROS Neurological GI: Present: as per HPI - Hematologic/Lymphatic Hematologic/Lymphatic pediatric: Present: as per HPI - Musculoskeletal Musculoskeletal ROS GI: Present: as per HPI - Integumentary Integumentary GI: Present: as per HPI - Psychiatric ROS Psychiatric GI: Present: as per HPI - Endocrine Endocrine IM: Present: as per HPI - Constitutional Vitals: Temp Pulse Resp BP Pulse Ox 98.1 F 91 28 154/63 98 04/21/19 11:21 04/21/19 15:04 04/21/19 15:04 04/21/19 15:04 04/21/19 15:04 General appearance: Present: cooperative, A&O X 3, no acute distress, answers questions appropriately - Head Head exam: Present: atraumatic, normocephalic - Eye Eye exam: Present: normal appearance, sclera anicteric - ENT ENT exam: Present: mucous membranes moist - Neck Neck exam general surgery: Present: normal inspection, trachea midline - Respiratory Respiratory exam: Present: CTAB. Absent: rales, rhonchi - Cardiovascular Cardiovascular exam: Present: RRR, +S1, +S2 - GI/Abdominal GI/Abdominal exam: Present: soft, no peritoneal signs. Absent: distended, firm, guarding, tenderness - Rectal Rectal exam: Present: deferred - Extremities Exam Extremities exam: Present: warm - Neurological Exam Neurological exam: Present: no focal deficits - Psychiatric Psychiatric exam: Present: normal affect, normal mood - Skin Skin exam: Present: dry, intact, normal color, warm Results - Labs CBC & Chem 7: 04/21/19 03:05 04/21/19 03:05 Labs: Last Result 04/21/19 03:05 Calcium 8.1 L Entire Visit 04/21/19 03:05 Hgb 8.0 L Hct 25.2 L - ABG ABG results: PT/INR, D-dimer PT 13.6 Seconds (9.4-12.1) H 04/19/19 10:55 Consult Discharge Plan - Plan Referrals: Kaveh Mabry MD [Partnered Physician] - Morris Medina MD [Primary Care Provider] - 05/13/19 10:00 am
--- NOTE | 2019-04-21 15:20 | IR Procedure Note ---
Date of procedure: 04/21/19 Consent Obtained: Written consent Timeout: Correct patient and procedure verified, Correct site verified, Time out performed, Skin prep completed Local anesthetic: Lidocaine 1% Was there an botany laboratory assistant present: No Results/Findings: Cath placed, working well. Estimated blood loss (cc): 1 Complications: None; Tolerated procedure well Indications: Renal insufficiency Procedure Performed: Tunneled HD catheter placement Site/Technique: RIJV used for access. Working well. Temp removed from left neck. Results/Findings (any specimens removed): Working well, ok to use. Post Procedure Treatment Plan: Monitoring in pts room. Specimen: N/ a
[2019-04-21] MEDS ORDERED: SODIUM CHLORIDE/NAHCO3/KCL/PEG 4,000 ML SOLN.RECON PO ONE (17:00)
--- NOTE | 2019-04-21 17:59 | Electrocardiograph Report ---
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
[2019-04-21] MEDS: Heparin 25,000 UNIT/250 ML D5W 25,000 UNIT/250 ML IV.SOLN IVC SCH (20:47)
[2019-04-21] MEDS: Ondansetron 4 MG/2 ML VIAL IVP PRN (23:40)
[2019-04-22 02:53] LABS: Basophils % 0.4 %; Eosinophils # 0.5 K/mcL (0.0-0.6); Hematocrit 25.2 % (37.5-50.1); Hemoglobin 7.9 g/dL (12.9-16.9); Immature Granulocytes % 0.4 % (0-4); Lymphocytes # 0.4 K/mcL (0.6-4.6); Lymphocytes % 5.7 %; Mean Corpuscular HGB Conc 31.3 g/dL (31.6-35.5); Mean Corpuscular Hemoglobin 29.5 pg (28.0-33.3); Monocytes # 0.7 K/mcL (0.0-1.3); Neutrophils # 5.9 K/mcL (1.6-8.9); Platelet Count 115 K/mcL (140-400); Red Blood Count 2.68 M/mcL (4.19-5.50); Segmented Neutrophils % 78.5 %; White Blood Count 7.5 K/mcL (4.3-11.1)
[2019-04-22 03:09] LABS: Calcium 8.1 mg/dL (8.6-10.3); Magnesium 1.7 mg/dL (1.6-2.6); Phosphorous 4.8 mg/dL (2.7-4.5); Potassium 4.2 mEq/L (3.5-5.1)
[2019-04-22] MEDS: *HR* Heparin 5,000 UNIT/ML VIAL IVP PRN (03:18)
[2019-04-22] MEDS ORDERED: 0.9 % Sodium Chloride 250 ML IVC PRN (08:08)
[2019-04-22] MEDS ORDERED: *HR* Heparin 10,000 UNIT/10 ML VIAL IV PRN (08:08)
--- NOTE | 2019-04-22 08:10 | Cardiology Progress Note ---
Date of Encounter: 04/22/19 Time of Encounter: 08:10 Assessment and Plan (1) Acute kidney injury superimposed on chronic kidney disease Current Visit: Yes Status: Acute Per Cardiology: Nephrology following. S/p tunneled HD catheter. Seen during dialysis today. (2) NSTEMI (non-ST elevated myocardial infarction) Current Visit: Yes Status: Acute Per Cardiology: Peak trop 11.78. On ASA, statin, BB. S/p HD tunneled catheter. EGD and Cscope pending later today. H&H remains down at 7/25 range. CP free. Possible LHC this stay. (3) Cardiomyopathy Current Visit: Yes Status: Acute Per Cardiology: EF 25-30%. On Toprol XL. No ACEi/ARB d/t KRYSTA on CKD. On daily weights, strict I&O. Recommend place on fluid restriction once diet resumed. Net I&O +6503ml. CXR showed mild interstitial pulmonary edema. Will defer diuresis to Nephrology. Qualifiers: Cardiomyopathy type: unspecified Qualified Code(s): I42.9 - Cardiomyopathy, unspecified Discussion w patient/family: The assessment and plan as outlined above was discussed with the patient and/or family members who expressed understanding and agreement. All questions were answered. Thank you for involving us in the care of your patient. Please call with any questions. Subjective Principal diagnosis: KRYSTA/CKD, NSTEMI, Anemia Interval history: Attempted to see multiple times. Patient finally seen during hemodialysis today. He denies any new concerns over night. Denies any chest pain. Denies any active bleeding or blood loss. Reports has not completed EGD or colonoscopy today. Appears to be pending later this afternoon. Objective Vital Signs, Last 4 Hours Temp Pulse Resp BP Pulse Ox 04/22/19 07:49 98.4 F 92 18 114/60 97 General: Conversant, No Apparent Distress HEENT: Atraumatic, Normocephaly, Mucus Membranes Moist Neck: No JVD, Normal carotid pulses Cardiac: Reg Rate and Rhythm, Normal S1 and S2, No Murmur Lungs: Normal Breath Sounds, No Wheeze, Rales, Rhonchi Neuro: Alert and responsive, No focal deficits noted Abdomen: Soft, Non-Tender Skin: No rashes noted on visualized skin Musculoskeletal: No Chest Wall Tenderness Extremities: No Clubbing, No Cyanosis, No Edema, Normal Pulses Results 04/22/19 02:39 04/22/19 02:39 Lab Results Laboratory Tests 04/18/19 04/20/19 04/22/19 16:59 04:08 02:39 Hgb 9.4 L 7.9 L Hct 29.7 L 25.2 L Plt Count 181 115 L Creatinine Est GFR (Non-Af Amer) Magnesium Troponin I 11.78 H* 04/22/19 02:39 Hgb Hct Plt Count Creatinine 4.71 H Est GFR (Non-Af Amer) 12 L Magnesium 1.7 Troponin I Impressions Chest X-Ray 04/19/19 00:00 IMPRESSION: 1. Tip of the left-sided central venous catheter projects over the cavoatrial junction. No evidence of pneumothorax. 2. Unchanged findings of mild pulmonary interstitial edema. No significant pleural effusion. D/ / 04/19/2019 15:29:58 José Mccarty MD / stephani Interpreting Provider: José Mccarty MD Guidance Ultrasound 04/21/19 00:00 IMPRESSION: Successful ultrasound and fluoroscopy guided tunneled catheter placement and temporary dialysis catheter removal. D/ / Newton Cheng MD / Newton Cehng MD Interpreting Provider: Newton Cheng MD Insertion Tunneled Catheter 04/21/19 00:00 IMPRESSION: Successful ultrasound and fluoroscopy guided tunneled catheter placement and temporary dialysis catheter removal. D/ / Newton Cheng MD / Newton Cheng MD Interpreting Provider: Newton Cheng MD Retroperitoneum Ultrasound 04/21/19 16:00 IMPRESSION: No hydronephrosis. D/ / Benito Tristan MD / Benito Tristan MD Interpreting Provider: Benito Tristan MD Active Medications Aspirin (Aspirin) 81 mg PO DAILY [facility] Stop: 10/20/19 09:01 Last Admin: 04/21/19 07:07 Dose: Not Given Documented by: Atorvastatin Calcium (Lipitor) 40 mg PO HS [facility] Stop: 10/20/19 21:01 Last Admin: 04/21/19 20:08 Dose: 40 mg Documented by: Calcium Acetate (Phos-Lo) 667 mg PO TIDWM [facility] Stop: 10/22/19 08:01 Citalopram Hydrobromide (Celexa) 40 mg PO DAILY [facility] Stop: 10/19/19 09:01 Last Admin: 04/21/19 07:07 Dose: 40 mg Documented by: Darbepoetin Lester (Aranesp) 60 mcg SQ Mo@2100 [facility] Stop: 10/21/19 23:31 Last Admin: 04/21/19 23:44 Dose: 60 mcg Documented by: Dextrose/Water (Dextrose 50% (Syg)) 25 ml IVP AD PRN PRN Reason: Hypoglycemia Stop: 10/18/19 21:16 Diphenhydramine HCl (Benadryl) 25 mg PO Q8HR PRN PRN Reason: Insomnia Stop: 10/19/19 00:40 Last Admin: 04/20/19 21:25 Dose: 25 mg Documented by: Finasteride (Proscar) 5 mg PO DAILY [facility]; Protocol Stop: 10/19/19 09:01 Last Admin: 04/21/19 07:07 Dose: 5 mg Documented by: Glucagon (Glucagen) 1 mg IM ONCE PRN PRN Reason: Hypoglycemia Stop: 10/18/19 21:16 Glucose (Gluctose) 15 gm PO ONCE PRN PRN Reason: Hypoglycemia Stop: 10/18/19 21:16 Glucose (Gluctose) 30 gm PO ONCE PRN PRN Reason: Hypoglycemia Stop: 10/18/19 21:16 Heparin Sodium (Porcine) (Heparin) 4,000 unit IVP Q6HR PRN PRN Reason: SEE COMMENTS Stop: 10/19/19 10:16 Heparin Sodium (Porcine) (Heparin) 2,000 unit IVP Q6H PRN PRN Reason: SEE COMMENTS Stop: 10/19/19 10:16 Last Admin: 04/22/19 03:18 Dose: 2,000 unit Documented by: Dextrose (Dextrose 5%) 1,000 mls @ 100 mls/hr IVC .Q10H PRN PRN Reason: HYPOGLYCEMIA Stop: 10/18/19 21:16 Sodium Chloride (0.9 % Sodium Chloride) 1,000 mls @ 75 mls/hr IVC .[id number] YOB[facility] Stop: 10/20/19 10:16 Last Admin: 04/21/19 23:54 Dose: Not Given Documented by: Sodium Chloride (0.9 % Sodium Chloride) 250 mls @ 937.5 mls/hr IVC .Q16M PRN PRN Reason: Hypotension Stop: 10/21/19 08:09 Sodium Chloride (0.9 % Sodium Chloride) 1,000 mls @ 0 mls/hr PRIME .Q0M YOBANI Stop: 10/21/19 08:16 Insulin Human Lispro (Humalog) 0 units SQ TIDAC [facility]; Protocol Stop: 10/19/19 07:31 Last Admin: 04/21/19 17:32 Dose: Not Given Documented by: Metoprolol Succinate (Toprol Xl) 25 mg PO DAILY [facility] Stop: 10/21/19 09:01 Last Admin: 04/21/19 07:07 Dose: 25 mg Documented by: Naloxone HCl (Narcan) 0.4 mg IVP Q2MPRN PRN PRN Reason: SEE COMMENTS Stop: 10/18/19 21:11 Ondansetron HCl (Zofran) 4 mg IVP Q4H PRN; Protocol PRN Reason: Nausea Stop: 10/18/19 21:46 Last Admin: 04/21/19 23:40 Dose: 4 mg Documented by: Tamsulosin HCl (Flomax) 0.4 mg PO BID [facility]; Protocol Stop: 10/19/19 09:01 Last Admin: 04/21/19 20:08 Dose: 0.4 mg Documented by: - Imaging and Cardiology Cardiac cath: pending Consult Discharge Plan - Plan Referrals: Kaveh Mabry MD [Partnered Physician] - Morris Medina MD [Primary Care Provider] - 05/13/19 10:00 am
[2019-04-22] MEDS: Insulin LISPRO 300 UNITS/3 ML VIAL SQ SCH ×3 (08:12→17:52)
[2019-04-22] MEDS ORDERED: 0.9 % Sodium Chloride 1,000 ML PRIME SCH (08:15)
[2019-04-22 09:23] LABS: Myeloperoxidase Ab 0 AU/mL (0-19); Serine Protease-3 Antibody 12 AU/mL (0-19)
--- NOTE | 2019-04-22 10:55 | Electrocardiograph Report ---
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
[2019-04-22] MEDS ORDERED: 0.9 % Sodium Chloride 1,000 ML ONE (11:24)
--- NOTE | 2019-04-22 11:43 | Nephrology Progress Note ---
Date of Encounter: 04/22/19 Time of Encounter: 11:43 - Assessment and Plan (1) Acute kidney injury superimposed on chronic kidney disease Current Visit: Yes Status: Acute April 19 2019 Patient has chronic kidney disease that is likely secondary to diabetes and hypertension. He presents with severe acute kidney injury superimposed on chronic kidney disease that is likely multifactorial. The patient gives a history of low to no urine output for several days prior to admission. He also gives a history of decrease oral intake along with nausea and some vomiting prior to his admission. He takes blood pressure medications including a diuretic during the time that he had decreased oral intake and on the day of admission states he was sitting on the son. He presents with a presyncopal episode that clinically I would think is hypovolemia. This hypovolemic shock is likely continuing to his acute kidney injury which at this time is likely acute tubular necrosis given his clinical picture. We will check orthostatic vital signs Since his hyperkalemia responded to medical management will give him aggressive hydration to see if his renal function improves. If the patient is unable to produce urine in the next few hours I will initiate hemodialysis. The patient gives consent for hemodialysis. At this time I am unclear as to why he had the myoclonic jerking. I do not see gabapentin in his medication list. We will defer further investigation to his primary team. The patient has anemia that is likely multifactorial. We will check iron stores, vitamin B12, folate, and a reticulocyte count. Patient can be transfuse as needed. Patient is critically ill with multiple organs failing and life threatening electrolyte abnormalities. April 20 2019 Patient appears much improved. His electrolytes are better. He is mentally better with fewer myoclonic jerks. He denies chest pain or dyspnea. I spoke with Dr. Brock and with Dr. Sanchez, cardiology regarding the plan of care. As the patient will need a cardiac cath and may need ongoing dialysis it would be prudent to place a tunneled catheter in the event that the patient needs antiplatelet therapy if he needs stent placement. This would complicate placing a tunneled catheter later. I will order the tunneled catheter and follow for the need for additional dialysis. April 21 2019 Patient continues to do well and is without chest pain or dyspnea. Tunneled HD line placed and patient seen on dialysis. Awaiting GI work-up prior to cardiac cath per cardiology. Plan for dialysis as needed. Will add HILARY for anemia. Will check PTH and vitamin D. Start phoslo for phosphate binding. April 22 2019 Patient without complaint. Continue daily dialysis for now. Patient getting a GI work-up. Patient seen on dialysis. (2) Dehydration Current Visit: Yes Status: Acute (3) Diabetes Current Visit: Yes Status: Acute We will defer management to primary team. His hemoglobin A1c in the past has been less than 7. Qualifiers: Qualified Code(s): E11.9 - Type 2 diabetes mellitus without complications (4) Elevated troponin Current Visit: Yes Status: Acute (5) HTN (hypertension) Current Visit: Yes Status: Acute Qualifiers: Qualified Code(s): I10 - Essential (primary) hypertension (6) Hyperkalemia Current Visit: Yes Status: Acute (7) Hyponatremia Current Visit: Yes Status: Acute (8) Near syncope Current Visit: Yes Status: Acute (9) Anemia Current Visit: Yes Status: Acute Qualifiers: Anemia type: unspecified type Qualified Code(s): D64.9 - Anemia, unspecified (10) Metabolic acidosis Current Visit: Yes Status: Acute (11) BPH (benign prostatic hyperplasia) Current Visit: Yes Status: Acute Qualifiers: Qualified Code(s): N40.0 - Benign prostatic hyperplasia without lower urinary tract symptoms (12) Myoclonus Current Visit: Yes Status: Acute Subjective Principal diagnosis: KRYSTA/CKD, NSTEMI, Anemia Interval history: Patient seen. He is much more alert. He denies chest pain or dyspnea. He was seen on dialysis. Objective - Vital Signs Vital signs: Vital Signs Temp Pulse Resp BP Pulse Ox 04/22/19 11:05 117/65 04/22/19 10:50 127/58 04/22/19 10:35 122/64 04/22/19 10:20 122/71 04/22/19 10:05 134/66 04/22/19 09:50 136/60 04/22/19 09:35 118/60 04/22/19 09:20 130/77 04/22/19 09:05 133/65 04/22/19 08:50 131/64 04/22/19 08:35 98 F 18 134/58 04/22/19 07:49 98.4 F 92 18 114/60 97 04/22/19 03:43 98.0 F 99 18 114/58 91 04/22/19 00:13 97.8 F 98 20 114/63 95 04/21/19 23:44 114/63 04/21/19 19:21 98.0 F 103 20 127/73 96 04/21/19 18:35 97.5 F L 20 126/66 04/21/19 18:20 113/62 04/21/19 18:05 115/69 04/21/19 17:50 119/71 04/21/19 17:35 115/59 04/21/19 17:20 120/65 04/21/19 17:05 141/70 04/21/19 16:50 148/102 04/21/19 16:35 138/99 04/21/19 16:20 124/91 04/21/19 16:05 141/70 04/21/19 15:50 97.3 F L 22 122/54 04/21/19 15:04 91 28 154/63 98 Intake and Output 04/21/19 04/22/19 04/22/19 23:59 07:59 15:59 Intake Total 67 / 2750 134.2 / 734.2 600 / 734.2 Output Total 500 / 755 150 / 150 Balance -433 / 1995 -15.8 / 584.2 600 / 584.2 Intake: IV Fluids 67 / 2250 134.2 / 134.2 Heparin 25,000 UNIT/250 ML D5W 67 / 250 134.2 / 134.2 25,000 unit In 250 ml @ 8 UNIT/ KG/HR 9.704 mls/hr IVC .Q24H [facility] Rx#:[id number] Oral 0 / 0 Intake, Rinseback and Flushes 600 / 600 Output: Urine 0 / 80 Total Dialysis (HD) Output 500 / 500 Catheter 150 / 150 Other: Weight 125.1 kg Blood Glucose* 102 102 Hemodialysis Net Fluid Removed 0 499 (mL) Patient Weight 04/22/19 23:59 Weight 125.1 kg - General Appearance General appearance: Present: well-developed, well-nourished EENT: Present: ATNC Neck: Present: supple Cardiology: Present: regular rate Integumentary: Present: warm and dry Neurologic: Present: alert and oriented x3 Psychiatric: Present: mood/affect appropriate - Lab 04/22/19 02:39 04/22/19 02:39 Most recent lab results 04/22/19 02:39 Calcium 8.1 L Phosphorus 4.8 H Magnesium 1.7 Consult Discharge Plan - Plan Referrals: Kaveh Mabry MD [Partnered Physician] - Morris Medina MD [Primary Care Provider] - 05/13/19 10:00 am
[2019-04-22] MEDS ORDERED: Propofol 500 MG/50 ML INFUS..BTL ONE (12:08)
[2019-04-22] MEDS ORDERED: *HR* Etomidate 40 MG/20 ML VIAL IVP ONE (12:08)
[2019-04-22] MEDS ORDERED: Lidocaine -MPF 2% 2 ML VIAL ONE (12:08)
--- NOTE | 2019-04-22 12:20 | Anesthesia Evaluation PreOp ---
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 INSPECTOR History: Denies Any Significant HX Other Medical History: Renal (ESRD on HD), Diabetes Type II Anesthesia History: No Prior Anesthetic Complications, Past Anesthesia (TKA, hernia) Alcohol Use: none Drug use: none Medications and Allergies Aspirin [Lo-Dose Aspirin EC] 81 mg PO DAILY 04/18/19 [History] Citalopram Hydrobromide [Citalopram HBr] 40 mg PO DAILY 04/18/19 [History] Finasteride [Proscar] 5 mg PO DAILY 04/18/19 [History] Furosemide [Lasix] 20 mg PO DAILY 04/18/19 [History] Insulin Glargine [Lantus] 40 unit SQ HS 04/18/19 [History] Lisinopril [Zestril] 10 mg PO DAILY 04/18/19 [History] Metoprolol Tartrate 100 mg PO BID 04/18/19 [History] Simvastatin [Zocor] 20 mg PO HS 04/18/19 [History] Tamsulosin [Flomax] 0.4 mg PO BID 04/18/19 [History] dilTIAZem HCl [Diltiazem ER] 240 mg PO DAILY 04/18/19 [History] Allergy/AdvReac Type Severity Reaction Status Date / Time No Known Allergies Allergy Verified 04/18/19 16:48 - Meds/Allergy Pre-op Review Medications Reviewed: Yes Allergies Reviewed: Yes Beta Blockers on Current Med List: Yes If Beta Blockers taken, Date/Time (Last Dose taken): 6-17 at 0700 Anesthesia Results - Labs 04/22/19 02:39 04/22/19 02:39 - Imaging Additional studies: echo: Impressions: All LV garcia not well visualized, LV systolic function grossly moderately to severely reduced. Mild concentric left ventricular hypertrophy. Mild left ventricular diastolic dysfunction. Normal right ventricular structure and function. Mildly dilated left atrium. Mild mitral regurgitation. Unable to estimate RVSP due to lack of TR jet. Recommend repeat limited echo with defnity for LVEF and wall motion. Impressions: LVEF 25-30%. Severe global left ventricular systolic dysfunction. Grossly normal right ventricular size with mild dysfunction. Cardiology consult notified. Anesthesia Exam Selected Entries 04/22/19 12:03 Temperature 98.1 F Pulse Rate 107 Respiratory Rate 18 Blood Pressure 118/66 O2 Sat by Pulse Oximetry 98 Oxygen Delivery Method Nasal Cannula Weight: 125kg BMI 40 - HEENT Pupil (Motor): EOMI Mallampati: III Teeth: Missing Oral Opening: Less than or equal to 3 - BLOCK INSPECTOR LOC: Oriented BLOCK INSPECTOR Motor: Normal RUE, Normal LUE, Normal RLE, Normal LLE, Normal Face BLOCK INSPECTOR Sensory: Normal: RUE, LUE, RLE, LLE, Face - Cardiac Rhythm: Regular Murmur: None - Pulmonary Breath Sounds: bilateral Clear Respiratory Effort: Symmetrical Anesthesia Assess/Plan ASA Score: 4 Level of consciousness: Cooperative, Oriented Anesthetic Plan: MAC Monitoring Plan: Standard Monitors Recovery Plan: Other (agrees to GA)
--- NOTE | 2019-04-22 12:41 | Internal Med Progress Note ---
Hospitalist Progress Note - Encounter Date of Encounter: 04/22/19 Time of Encounter: 12:37 - Subjective Interval History: Patient seen and examined earlier today in hemodialysis. Patient resting in bed and saturating well on nasal cannula. Remain O2 dependent. Denies any chest pain or shortness of breath at this time. S/P tunneled HD cath placed on 04/21/19 scheduled for endoscopy and colonoscopy later today Ten point ROS is negative except as listed above - Exam Vitals: Temp Pulse Resp BP Pulse Ox 98.1 F 107 18 118/66 98 04/22/19 12:03 04/22/19 12:03 04/22/19 12:03 04/22/19 12:03 04/22/19 12:03 Exam: General: No acute distress, AAO x 3, morbidly obese HEENT: EOMI, NC/AT, no scleral icterus, dry oral mucosa Respiratory: Equal air entry bilaterally, no wheezing, no rales Cardiovascular: Regular, Rate, Rhythm, No murmurs GI: Soft, Non tender, non distended, normal bowel sounds Ext: LE edema, no tenderness, positive pulses, skin excoriations and scabbing on bilateral distal lower extremities, chronic stasis dermatitis on b/l LE Neuro: AAO x 3, no focal deficits Rest of the clinical exam is noncontributory - Summary of Assessment and Plan Summary of Assessment and Plan: Patient is a 78y/o male with reported hx of HTN, CKD, DM who is admitted for acute renal failure. Assessment/Plan: 1. Acute renal failure Nephrology input appreciated s/p tunneled HD cath placement on 04/21/19 continue DEFECTIVE CIG[employer]ETTE [employer]ITTER as per nephrology scheduled for tunneled HD later today will closely monitor renal function closely monitor I/Os continue bradley support 2. Metabolic acidosis likely secondary to renal failure resolved at this time 3. Hyperkalemia resolved closely monitor K levels 4. 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 Hyponatremia Resolved continue to closely monitor 6. Rhabdomyolysis Given elevated CPK with reported hx of fall will closely montor CK levels, improved from previous day continue IV fluids 7. BPH with concern for urinary outlet obstruction continue home medications continue bradley support outpatient follow up with urology 8. DM type II sliding scale insulin algorithm monitor FS and BG ADA diet 9. HTN BP within acceptable range despite holding home meds holding home dose of lasix, metoprolol, and lisinopril at this time will closely monitor BP 10. LE wound wound care evaluation requested 11. DVT ppx: currently on Heparin drip 12. Acute on chronic anemia concern for acute bleeding given heparin infusion and drop in H&H will closely monitor H&H GI evaluation appreciated scheduled for EGD/colonoscopy today (04/22/19) Care plan discussed with patient/RN/consulting provider/pharmacist/case manage ment - Time Spent with Patient Total time spent is greater than 50% in coordination of care (as documented) at patient's floor/unit and/or counseling patient: Internal Medicine: Result - Labs CBC & Chem 7: 04/22/19 02:39 04/22/19 02:39 Labs: Short CBC 04/22/19 Range/Units 02:39 WBC 7.5 (4.3-11.1) K/mcL Hgb 7.9 L (12.9-16.9) g/dL Hct 25.2 L (37.5-50.1) % Plt Count 115 L (140-400) K/mcL Neutrophils # 5.9 (1.6-8.9) K/mcL BMP 04/22/19 02:39 Sodium 136 Potassium 4.2 Chloride 100 Carbon Dioxide 27 BUN 46 H Creatinine 4.71 H Glucose 106 H Calcium 8.1 L - ABG Interpretation ABG results: PT/INR, D-dimer PT 13.6 Seconds (9.4-12.1) H 04/19/19 10:55 - Impressions Impressions Chest X-Ray 04/19/19 00:00 IMPRESSION: 1. Tip of the left-sided central venous catheter projects over the cavoatrial junction. No evidence of pneumothorax. 2. Unchanged findings of mild pulmonary interstitial edema. No significant pleural effusion. D/ / 04/19/2019 15:29:58 José Mccarty MD / stephani Interpreting Provider: José Mccarty MD Guidance Ultrasound 04/21/19 00:00 IMPRESSION: Successful ultrasound and fluoroscopy guided tunneled catheter placement and temporary dialysis catheter removal. D/ / Newton Cheng MD / Newton Cheng MD Interpreting Provider: Newton Cheng MD Insertion Tunneled Catheter 04/21/19 00:00 IMPRESSION: Successful ultrasound and fluoroscopy guided tunneled catheter placement and temporary dialysis catheter removal. D/ / Newton Cheng MD / Newton Cheng MD Interpreting Provider: Newton Cheng MD Retroperitoneum Ultrasound 04/21/19 16:00 IMPRESSION: No hydronephrosis. D/ / Benito Tristan MD / Benito Tristan MD Interpreting Provider: Benito Tristan MD Consult Discharge Plan - Plan Referrals: Kaveh Mabry MD [Partnered Physician] - Morris Medina MD [Primary Care Provider] - 05/13/19 10:00 am
[2019-04-22] MEDS ORDERED: Esmolol 100 MG/10 ML VIAL IVP ONE (12:58)
--- NOTE | 2019-04-22 13:33 | Event Note ---
Date of Encounter: 04/22/19 Time of Encounter: 13:30 - Cardiology Event Note EGD results noted. C-Scope pending.
[2019-04-22] MEDS: Calcium Acetate 667 MG CAPSULE PO SCH ×3 (14:37→14:45)
[2019-04-22] MEDS: Finasteride 5 MG TABLET PO SCH (14:45)
[2019-04-22] MEDS: Metoprolol XL (24 HR) Succ 25 MG TAB.ER.24H PO SCH (14:46)
[2019-04-22] MEDS: Aspirin 81 MG TAB.CHEW PO SCH (14:46)
[2019-04-22 15:56] LABS: APTT (LE Anticoag) 144 sec (32-48); Diluted Russell Viper Venom 41 sec (33-44); LE APTT D Heparin Neutralized 42 sec (32-48); LE Coag Reptilase Time 20.3 sec (<=21.9); PT (LE-Anticoag) 15.3 sec (12.0-15.5); Thrombin Time >150.0 sec (14.7-19.5)
--- NOTE | 2019-04-22 17:27 | Electrocardiograph Report ---
[address] [place], [place] [address] Test Date: 2019-04-20 Pat Name: Newton Galvan Department: 110 Room: 2N09 Gender: M Regulatory Compliance Manager: : [id number] Requested By: Omar Mireles Order Number: [id number] Reading MD: Marj Matthews Measurements Intervals [place] Rate: 92 P: 9 [place]: 148 QRS: 7 QRSD: 124 T: 129 QT: 352 QTc: 402 Interpretive Statements SINUS RHYTHM WITH OCCASIONAL VENTRICULAR PREMATURE COMPLEXES MODERATE INTRAVENTRICULAR CONDUCTION DELAY [110+ ms QRS DURATION] ST DEVIATION AND MODERATE T-WAVE ABNORMALITY, CONSIDER LATERAL ISCHEMIA Electronically Signed On 04-22-2019 17:26:42 EDT by Marj Matthews
[2019-04-22] MEDS: 0.9 % Sodium Chloride 1,000 ML IVC SCH (17:53)
[2019-04-22 22:47] LABS: Alpha 2 Globulin (PEP) 0.93 g/dL (0.48-1.05); Beta Globulin (PEP) 0.61 g/dL (0.48-1.10)
[2019-04-23 01:44] LABS: Basophils % 0.4 %; Eosinophils # 0.7 K/mcL (0.0-0.6); Eosinophils % 8.4 %; Hemoglobin 7.9 g/dL (12.9-16.9); Immature Granulocytes % 0.5 % (0-4); Immature Platelets 2.7 % (1.1-6.1); Lymphocytes # 0.5 K/mcL (0.6-4.6); Mean Corpuscular HGB Conc 31.6 g/dL (31.6-35.5); Mean Corpuscular Hemoglobin 30.6 pg (28.0-33.3); Mean Corpuscular Volume 96.9 fL (83.0-100.0); Monocytes # 0.9 K/mcL (0.0-1.3); Monocytes % 11.3 %; Neutrophils # 5.9 K/mcL (1.6-8.9); Platelet Count 107 K/mcL (140-400); Red Blood Count 2.58 M/mcL (4.19-5.50); Segmented Neutrophils % 73.4 %
[2019-04-23 02:02] LABS: Calcium 8.2 mg/dL (8.6-10.3); Magnesium 1.8 mg/dL (1.6-2.6)
[2019-04-23] MEDS: 0.9 % Sodium Chloride 1,000 ML IVC SCH (06:42)
[2019-04-23] MEDS ORDERED: Calamine/Zinc oxide Lotion 120 ML BOTTLE TP PRN (08:59)
[2019-04-23] MEDS: Aspirin 81 MG TAB.CHEW PO SCH (10:23)
[2019-04-23] MEDS: Insulin LISPRO 300 UNITS/3 ML VIAL SQ SCH ×3 (10:23→17:43)
[2019-04-23] MEDS: Calcium Acetate 667 MG CAPSULE PO SCH ×3 (10:29→17:33)
[2019-04-23] MEDS ORDERED: *HR* Heparin 10,000 UNIT/10 ML VIAL IV PRN (10:34)
[2019-04-23] MEDS ORDERED: 0.9 % Sodium Chloride 250 ML IVC PRN (10:34)
[2019-04-23] MEDS: Finasteride 5 MG TABLET PO SCH (10:40)
[2019-04-23] MEDS: Metoprolol XL (24 HR) Succ 25 MG TAB.ER.24H PO SCH (10:43)
--- NOTE | 2019-04-23 11:36 | Internal Med Progress Note ---
Hospitalist Progress Note - Encounter Date of Encounter: 04/23/19 Time of Encounter: 11:33 - Subjective Interval History: Patient seen and examined earlier today with family present at bedside. Patient resting in bed and saturating well on room air. reports of severe itchiness on bilateral lower extremities and states he has severe excoriations on his b/l LE from the scratching due to the itchiness. He denies any sob, chest pain, or other discomfort at this time. Pt received Benadryl overnight for the itchiness without any relief. Ten point ROS is negative except as listed above - Exam Vitals: Temp Pulse Resp BP Pulse Ox 98.2 F 99 16 94/62 94 04/23/19 08:06 04/23/19 08:06 04/23/19 08:06 04/23/19 08:06 04/23/19 03:00 Exam: General: No acute distress, AAO x 3, morbidly obese HEENT: EOMI, NC/AT, no scleral icterus, dry oral mucosa Respiratory: Equal air entry bilaterally, no wheezing, no rales Cardiovascular: Regular, Rate, Rhythm, No murmurs GI: Soft, Non tender, non distended, normal bowel sounds Ext: LE edema, no tenderness, positive pulses, skin excoriations and scabbing on bilateral distal lower extremities, chronic stasis dermatitis on b/l LE Neuro: AAO x 3, no focal deficits Rest of the clinical exam is noncontributory - Summary of Assessment and Plan Summary of Assessment and Plan: Patient is a 78y/o male with reported hx of HTN, CKD, DM who is admitted for acute renal failure. Assessment/Plan: 1. 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 Metabolic acidosis likely secondary to renal failure resolved at this time 3. Hyperkalemia resolved closely monitor K levels 4. 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 Hyponatremia Resolved continue to closely monitor 6. Rhabdomyolysis Given elevated CPK with reported hx of fall will closely montor CK levels, improved from previous day 7. BPH with concern for urinary outlet obstruction continue home medications continue bradley support outpatient follow up with urology 8. DM type II sliding scale insulin algorithm monitor FS and BG ADA diet 9. HTN BP within acceptable range despite holding home meds holding home dose of lasix, metoprolol, and lisinopril at this time will closely monitor BP 10. LE wound wound care evaluation requested calamine lotion topically prn itchiness 11. DVT ppx: currently on Heparin drip 12. Acute on chronic anemia concern for acute bleeding given heparin infusion and drop in H&H will closely monitor H&H GI evaluation appreciated s/p EGD and colonoscopy EGD reported Duodenal ulcer. will f/u with GI in regards to antiplatelet therapy if needed after [facility] Reported of 2 stage II decubitus ulcer as per nursing reports-stable, will continue wound care and frequent turning Care plan discussed with patient/family/RN/consulting provider/pharmacist/case management - Time Spent with Patient Total time spent is greater than 50% in coordination of care (as documented) at patient's floor/unit and/or counseling patient: Internal Medicine: Result - Labs CBC & Chem 7: 04/23/19 01:16 04/23/19 01:16 Labs: Short CBC 04/23/19 Range/Units 01:16 WBC 8.0 (4.3-11.1) K/mcL Hgb 7.9 L (12.9-16.9) g/dL Hct 25.0 L (37.5-50.1) % Plt Count 107 L (140-400) K/mcL Neutrophils # 5.9 (1.6-8.9) K/mcL BMP 04/23/19 01:16 Sodium 139 Potassium 4.0 Chloride 103 Carbon Dioxide 27 BUN 31 H Creatinine 3.85 H Glucose 84 Calcium 8.2 L - ABG Interpretation ABG results: PT/INR, D-dimer PT 13.6 Seconds (9.4-12.1) H 04/19/19 10:55 - Impressions Impressions Guidance Ultrasound 04/19/19 00:00 FINDINGS/IMPRESSION: Successful ultrasound-guided placement of a temporary dialysis catheter via the left internal jugular vein. Postprocedure chest radiograph to follow. D/ / Leonidas Capone / Leonidas Capone Interpreting Provider: Leonidas Capone Insertion Non-Tunneled Catheter 04/19/19 00:00 FINDINGS/IMPRESSION: Successful ultrasound-guided placement of a temporary dialysis catheter via the left internal jugular vein. Postprocedure chest radiograph to follow. D/ / Leonidas Capone / Leonidas Capone Interpreting Provider: Leonidas Capone Consult Discharge Plan - Plan Referrals: Kaveh Mabry MD [Partnered Physician] - Morris Medina MD [Primary Care Provider] - 05/13/19 10:00 am
[2019-04-23] MEDS ORDERED: 0.9 % Sodium Chloride 1,000 ML ONE (12:27)
--- NOTE | 2019-04-23 12:42 | Cardiology Progress Note ---
Date of Encounter: 04/23/19 Time of Encounter: 12:40 Assessment and Plan (1) NSTEMI (non-ST elevated myocardial infarction) Current Visit: Yes Status: Acute Per Cardiology: Peak trop 11.78. Type I vs Type II NSTEMI in setting of KRYSTA on CKD--creatinine was 8.06, hyperkalemia with K 7.5. Nephrology was consulted and dialysis initiated. S/P HD tunneled catheter. CP free. ECG incomplete LBBB, new compared to 2005. Concern for inferior injury on repeat ECGs. TTE EF 25-30%--global. Heparin gtt started 04/19. HGB downtrended to 7.7 and gtt was stopped. 04/2018 HGB was 13 and has continued to gradually downtrend over the past year. Underwent upper GI endoscopy 04/22. LA Grade I esophagitis. Nonbleeding erosive gastropathy. One 1cm ulcer with some old blood on surface. GI recommended pt avoid ASA and NSAIDS and receive another antiplatelet agent. Colonoscopy 04/22 One 13mm polyp in the rectum. Recommended to repeat colonoscopy to remove polyp. I discussed with Hudson Ruiz CNP. Plan for flex sig. 04/24 AM to remove polyp. H&H stable at 7.9/25.0. Continue Statin and BB. Possible LHC Sunday. Will need to discuss with interventionalist Sunday if okay using Plavix only for AC given GI recs to avoid ASA. (2) Cardiomyopathy Current Visit: Yes Status: Acute Per Cardiology: EF 25-30%. NICMP vs ICMP. On Toprol XL. No ACEi/ARB d/t KRYSTA on CKD. On daily weights, strict I&O. Recommend place on fluid restriction once diet resumed. CXR showed mild interstitial pulmonary edema. Will defer diuresis to Nephrology. Qualifiers: Cardiomyopathy type: unspecified Qualified Code(s): I42.9 - Cardiomyopathy, unspecified Discussion w patient/family: The assessment and plan as outlined above was discussed with the patient and/or family members who expressed understanding and agreement. All questions were answered. Thank you for involving us in the care of your patient. Please call with any questions. I will discuss all the above with Dr. Mckenna and make changes as necessary. Subjective Principal diagnosis: KRYSTA/CKD, NSTEMI, Anemia Interval history: Denies chest pain or dyspnea. Objective Vital Signs, Last 4 Hours Temp Pulse Resp BP 04/23/19 12:06 98.4 F 92 18 116/75 Vital Signs Temp Pulse Resp BP Pulse Ox 04/23/19 12:06 98.4 F 92 18 116/75 04/23/19 08:06 98.2 F 99 16 94/62 04/23/19 04:42 95 04/23/19 03:00 98.3 F 94 18 109/61 94 04/23/19 00:08 96 04/22/19 23:00 98.5 F 100 18 124/56 93 04/22/19 21:16 95 04/22/19 21:00 99.0 F 98 18 145/64 04/22/19 17:15 98.3 F 112 18 107/71 94 04/22/19 16:00 107 107/48 04/22/19 15:30 103 119/64 04/22/19 15:00 104 114/50 04/22/19 14:45 104 105/52 04/22/19 14:30 102 118/70 04/22/19 14:15 98 113/71 04/22/19 13:07 100 20 132/60 100 Intake and Output 04/22/19 04/23/19 04/23/19 23:59 07:59 15:59 Intake Total 120 / 1854.2 1000 / 1000 0 / 1000 Balance 120 / 1104.2 1000 / 1000 0 / 1000 Intake: IV Fluids 1000 / 1000 0.9 % Sodium Chloride 1,000 ML 1000 / 1000 @ 75 mls/hr IVC .[id number] [facility] Rx #:[id number] Oral 120 / 120 0 / 0 Other: Meal Dinner NPO Percent of Meal Consumed 20% 0% Weight 126 kg Blood Glucose* 70 96 124 Patient Weight 04/23/19 23:59 Weight 126 kg General: Conversant, No Apparent Distress HEENT: Atraumatic, Normocephaly, Mucus Membranes Moist Neck: No JVD, Normal carotid pulses Cardiac: Reg Rate and Rhythm, Normal S1 and S2, No Murmur Lungs: Normal Breath Sounds, No Wheeze, Rales, Rhonchi Neuro: Alert and responsive, No focal deficits noted Abdomen: Soft, Non-Tender Skin: No rashes noted on visualized skin Musculoskeletal: No Chest Wall Tenderness Extremities: Other (BLE edema, significant lesions from scratching) Results 04/23/19 01:16 04/23/19 01:16 Lab Results 04/23/19 04/23/19 01:16 01:16 WBC 8.0 Hgb 7.9 L Hct 25.0 L Plt Count 107 L Sodium 139 Potassium 4.0 Chloride 103 Carbon Dioxide 27 BUN 31 H Creatinine 3.85 H Glucose 84 Calcium 8.2 L Magnesium 1.8 Short CBC 04/23/19 Range/Units 01:16 WBC 8.0 (4.3-11.1) K/mcL Hgb 7.9 L (12.9-16.9) g/dL Hct 25.0 L (37.5-50.1) % Plt Count 107 L (140-400) K/mcL Neutrophils # 5.9 (1.6-8.9) K/mcL BMP 04/23/19 Range/Units 01:16 Sodium 139 (136-145) mEq/L Potassium 4.0 (3.5-5.1) mEq/L Chloride 103 (98-107) mEq/L Carbon Dioxide 27 (23-29) mEq/L BUN 31 H (8-23) mg/dL Creatinine 3.85 H (0.70-1.30) mg/dL Glucose 84 (70-105) mg/dL Calcium 8.2 L (8.6-10.3) mg/dL Impressions Guidance Ultrasound 04/19/19 00:00 FINDINGS/IMPRESSION: Successful ultrasound-guided placement of a temporary dialysis catheter via the left internal jugular vein. Postprocedure chest radiograph to follow. D/ / Leonidas Capone / Leonidas Capone Interpreting Provider: Leonidas Capone Insertion Non-Tunneled Catheter 04/19/19 00:00 FINDINGS/IMPRESSION: Successful ultrasound-guided placement of a temporary dialysis catheter via the left internal jugular vein. Postprocedure chest radiograph to follow. D/ / Leonidas Capone / Leonidas Capone Interpreting Provider: Leonidas Capone Active Medications Aspirin (Aspirin) 81 mg PO DAILY [facility] Stop: 10/20/19 09:01 Last Admin: 04/23/19 10:23 Dose: Not Given Documented by: Atorvastatin Calcium (Lipitor) 40 mg PO HS [facility] Stop: 10/20/19 21:01 Last Admin: 04/22/19 20:31 Dose: 40 mg Documented by: Calamine (Caladryl Lotion) 1 appl TP TID PRN PRN Reason: Itching Stop: 10/23/19 09:00 Calcium Acetate (Phos-Lo) 667 mg PO TIDWM [facility] Stop: 10/22/19 08:01 Last Admin: 04/23/19 10:40 Dose: 667 mg Documented by: Citalopram Hydrobromide (Celexa) 40 mg PO DAILY [facility] Stop: 10/19/19 09:01 Last Admin: 04/23/19 10:40 Dose: 40 mg Documented by: Darbepoetin Lester (Aranesp) 60 mcg SQ Mo@2100 [facility] Stop: 10/21/19 23:31 Last Admin: 04/21/19 23:44 Dose: 60 mcg Documented by: Dextrose/Water (Dextrose 50% (Syg)) 25 ml IVP AD PRN PRN Reason: Hypoglycemia Stop: 10/18/19 21:16 Diphenhydramine HCl (Benadryl) 25 mg PO Q8HR PRN PRN Reason: Insomnia Stop: 10/19/19 00:40 Last Admin: 04/22/19 20:35 Dose: 25 mg Documented by: Finasteride (Proscar) 5 mg PO DAILY [facility]; Protocol Stop: 10/19/19 09:01 Last Admin: 04/23/19 10:40 Dose: 5 mg Documented by: Glucagon (Glucagen) 1 mg IM ONCE PRN PRN Reason: Hypoglycemia Stop: 10/18/19 21:16 Glucose (Gluctose) 15 gm PO ONCE PRN PRN Reason: Hypoglycemia Stop: 10/18/19 21:16 Glucose (Gluctose) 30 gm PO ONCE PRN PRN Reason: Hypoglycemia Stop: 10/18/19 21:16 Heparin Sodium (Porcine) (Heparin) 0 unit IV ONCE PRN PRN Reason: Hemodialysis Catheter Packing Dextrose (Dextrose 5%) 1,000 mls @ 100 mls/hr IVC .Q10H PRN PRN Reason: HYPOGLYCEMIA Stop: 10/18/19 21:16 Sodium Chloride (0.9 % Sodium Chloride) 1,000 mls @ 75 mls/hr IVC .[id number] [facility] Stop: 10/20/19 10:16 Last Admin: 04/23/19 06:42 Dose: 75 mls/hr Documented by: Sodium Chloride (0.9 % Sodium Chloride) 1,000 mls @ 0 mls/hr PRIME .Q0M [facility] Stop: 10/22/19 08:16 Sodium Chloride (0.9 % Sodium Chloride) 250 mls @ 937.5 mls/hr IVC .Q16M PRN PRN Reason: Hypotension Stop: 10/23/19 10:35 Insulin Human Lispro (Humalog) 0 units SQ TIDAC [facility]; Protocol Stop: 10/19/19 07:31 Last Admin: 04/23/19 10:23 Dose: Not Given Documented by: Metoprolol Succinate (Toprol Xl) 25 mg PO DAILY [facility] Stop: 10/21/19 09:01 Last Admin: 04/23/19 10:43 Dose: 25 mg Documented by: Naloxone HCl (Narcan) 0.4 mg IVP Q2MPRN PRN PRN Reason: SEE COMMENTS Stop: 10/18/19 21:11 Ondansetron HCl (Zofran) 4 mg IVP Q4H PRN; Protocol PRN Reason: Nausea Stop: 10/18/19 21:46 Last Admin: 04/21/19 23:40 Dose: 4 mg Documented by: Tamsulosin HCl (Flomax) 0.4 mg PO BID [facility]; Protocol Stop: 10/19/19 09:01 Last Admin: 04/23/19 10:40 Dose: 0.4 mg Documented by: - Imaging and Cardiology Echo: report reviewed - EKG Interpretation EKG results cardiology: other (12 hr tele AVG HR 97 SR, 7 beat run NSVT) Consult Discharge Plan - Plan Referrals: Kaveh Mabry MD [Partnered Physician] - Morris Medina MD [Primary Care Provider] - 05/13/19 10:00 am
[2019-04-23 15:14] LABS: ANA IgG by ELISA DETECTED (None Detected); IFE Reflexed NOT DONE
--- NOTE | 2019-04-23 18:04 | Anesthesia Evaluation PreOp ---
Date of Encounter: 04/23/19 Time of Encounter: 18:30 - Past History Planned Operation: FLEX SIGMOIDOSCOPY Cardiac History: IA (ACUTE NSTEMI), HTN, Other (ISCHEMIC CARDIOMYOPATHY, EF 25%,) Pulmonary History: Former smoker APPEALS RN History: Syncope (PRESYNCOPAL ATTACK) Other Medical History: Renal (CKD, ARF THIS ADMISSION, HD STARTED), Diabetes Type II, Other (ANEMIA) Anesthesia History: No Prior Anesthetic Complications, Past Anesthesia Alcohol Use: none Drug use: none Medications and Allergies Aspirin [Lo-Dose Aspirin EC] 81 mg PO DAILY 04/18/19 [History] Citalopram Hydrobromide [Citalopram HBr] 40 mg PO DAILY 04/18/19 [History] Finasteride [Proscar] 5 mg PO DAILY 04/18/19 [History] Furosemide [Lasix] 20 mg PO DAILY 04/18/19 [History] Insulin Glargine [Lantus] 40 unit SQ HS 04/18/19 [History] Lisinopril [Zestril] 10 mg PO DAILY 04/18/19 [History] Metoprolol Tartrate 100 mg PO BID 04/18/19 [History] Simvastatin [Zocor] 20 mg PO HS 04/18/19 [History] Tamsulosin [Flomax] 0.4 mg PO BID 04/18/19 [History] dilTIAZem HCl [Diltiazem ER] 240 mg PO DAILY 04/18/19 [History] Allergy/AdvReac Type Severity Reaction Status Date / Time No Known Allergies Allergy Verified 04/18/19 16:48 - Meds/Allergy Pre-op Review Medications Reviewed: Yes Allergies Reviewed: Yes Beta Blockers on Current Med List: Yes (METOPROLOL 25 MG QD) If Beta Blockers taken, Date/Time (Last Dose taken): SEE MAR Anesthesia Results - Labs 04/23/19 01:16 04/23/19 01:16 Laboratory Tests 04/19/19 04/23/19 03:30 01:16 Calcium 8.2 L Phosphorus 4.0 Magnesium 1.8 B-Natriuretic Peptide 861 H Anesthesia Exam Vital Signs/O2 Sat/Glucose, Most Recent Temp Pulse Resp BP Pulse Ox 97.7 F 92 15 125/82 94 04/23/19 16:56 04/23/19 12:06 04/23/19 16:56 04/23/19 16:56 04/23/19 03:00 Blood Glucose* 124 Weight: 126 KG - BMI 40 NPO (# of Hours): >MN - HEENT Mallampati: II Teeth: Normal - Cardiac Rhythm: Regular - Pulmonary Breath Sounds: bilateral Clear Respiratory Effort: Symmetrical Anesthesia Assess/Plan ASA Score: 4 Anesthetic Plan: MAC Monitoring Plan: Standard Monitors Recovery Plan: Other
--- NOTE | 2019-04-23 22:08 | Nephrology Progress Note ---
Date of Encounter: 04/23/19 Time of Encounter: 22:05 - Assessment and Plan (1) Acute kidney injury superimposed on chronic kidney disease Current Visit: Yes Status: Acute April 19 2019 Patient has chronic kidney disease that is likely secondary to diabetes and hypertension. He presents with severe acute kidney injury superimposed on chronic kidney disease that is likely multifactorial. The patient gives a history of low to no urine output for several days prior to admission. He also gives a history of decrease oral intake along with nausea and some vomiting prior to his admission. He takes blood pressure medications including a diuretic during the time that he had decreased oral intake and on the day of admission states he was sitting on the son. He presents with a presyncopal episode that clinically I would think is hypovolemia. This hypovolemic shock is likely continuing to his acute kidney injury which at this time is likely acute tubular necrosis given his clinical picture. We will check orthostatic vital signs Since his hyperkalemia responded to medical management will give him aggressive hydration to see if his renal function improves. If the patient is unable to produce urine in the next few hours I will initiate hemodialysis. The patient gives consent for hemodialysis. At this time I am unclear as to why he had the myoclonic jerking. I do not see gabapentin in his medication list. We will defer further investigation to his primary team. The patient has anemia that is likely multifactorial. We will check iron stores, vitamin B12, folate, and a reticulocyte count. Patient can be transfuse as needed. Patient is critically ill with multiple organs failing and life threatening electrolyte abnormalities. April 20 2019 Patient appears much improved. His electrolytes are better. He is mentally better with fewer myoclonic jerks. He denies chest pain or dyspnea. I spoke with Dr. Brock and with Dr. Sanchez, cardiology regarding the plan of care. As the patient will need a cardiac cath and may need ongoing dialysis it would be prudent to place a tunneled catheter in the event that the patient needs antiplatelet therapy if he needs stent placement. This would complicate placing a tunneled catheter later. I will order the tunneled catheter and follow for the need for additional dialysis. April 21 2019 Patient continues to do well and is without chest pain or dyspnea. Tunneled HD line placed and patient seen on dialysis. Awaiting GI work-up prior to cardiac cath per cardiology. Plan for dialysis as needed. Will add HILARY for anemia. Will check PTH and vitamin D. Start phoslo for phosphate binding. April 22 2019 Patient without complaint. Continue daily dialysis for now. Patient getting a GI work-up. Patient seen on dialysis. April Patient seen on dialysis. Will follow for renal recovery. Plan for next dialysis after cardiac cath tentatively planned on Sunday. (2) Dehydration Current Visit: Yes Status: Acute (3) Diabetes Current Visit: Yes Status: Acute Qualifiers: Qualified Code(s): E11.9 - Type 2 diabetes mellitus without complications (4) Elevated troponin Current Visit: Yes Status: Acute (5) HTN (hypertension) Current Visit: Yes Status: Acute Qualifiers: Qualified Code(s): I10 - Essential (primary) hypertension (6) Hyperkalemia Current Visit: Yes Status: Acute (7) Hyponatremia Current Visit: Yes Status: Acute (8) Near syncope Current Visit: Yes Status: Acute (9) Anemia Current Visit: Yes Status: Acute Qualifiers: Anemia type: unspecified type Qualified Code(s): D64.9 - Anemia, unspecified (10) Metabolic acidosis Current Visit: Yes Status: Acute (11) BPH (benign prostatic hyperplasia) Current Visit: Yes Status: Acute Qualifiers: Qualified Code(s): N40.0 - Benign prostatic hyperplasia without lower urinary tract symptoms (12) Myoclonus Current Visit: Yes Status: Acute Subjective Principal diagnosis: KRYSTA/CKD, NSTEMI, Anemia Interval history: Patient seen. He denies chest pain or dyspnea. He was seen on dialysis. Objective - Vital Signs Vital signs: Vital Signs Temp Pulse Resp BP Pulse Ox 04/23/19 20:10 96 04/23/19 20:00 98.1 F 104 17 120/75 97 04/23/19 16:56 97.7 F 15 125/82 04/23/19 16:45 121/77 04/23/19 16:30 131/75 04/23/19 16:15 119/74 04/23/19 16:00 126/79 04/23/19 15:45 124/74 04/23/19 15:30 131/80 04/23/19 15:15 125/71 04/23/19 15:00 119/70 04/23/19 14:45 125/68 04/23/19 14:30 122/67 04/23/19 14:15 139/74 04/23/19 14:00 130/64 04/23/19 13:45 97.7 F 16 142/71 04/23/19 12:06 98.4 F 92 18 116/75 04/23/19 08:06 98.2 F 99 16 94/62 04/23/19 04:42 95 04/23/19 03:00 98.3 F 94 18 109/61 94 04/23/19 00:08 96 04/22/19 23:00 98.5 F 100 18 124/56 93 Intake and Output 04/23/19 04/23/19 04/23/19 07:59 15:59 23:59 Intake Total 1000 / 1860 860 / 1860 Output Total 875 / 875 Balance 1000 / 985 860 / 985 -875 / 985 Intake: IV Fluids 1000 / 1000 0.9 % Sodium Chloride 1,000 ML 1000 / 1000 @ 75 mls/hr IVC .[id number] [facility] Rx #:[id number] Oral 360 / 360 Intake, Rinseback and Flushes 500 / 500 Output: Urine 0 / 0 Total Dialysis (HD) Output 500 / 500 Catheter 375 / 375 Other: Meal Lunch Percent of Meal Consumed 100% Weight 126 kg Blood Glucose* 96 124 148 Hemodialysis Net Fluid Removed 338 0 (mL) Patient Weight 04/23/19 23:59 Weight 126 kg - General Appearance General appearance: Present: well-developed, well-nourished, obese EENT: Present: ATNC Cardiology: Present: regular rate Neurologic: Present: alert and oriented x3 Psychiatric: Present: mood/affect appropriate - Lab 04/23/19 01:16 04/23/19 01:16 Consult Discharge Plan - Plan Referrals: Kaveh Mabry MD [Partnered Physician] - Morris Medina MD [Primary Care Provider] - 05/13/19 10:00 am
[2019-04-24 06:21] LABS: Red Blood Count 2.59 M/mcL (4.19-5.50); Red Cell Distribution Width 14.1 % (11.5-14.5)
[2019-04-24 06:23] LABS: Basophils % 0.4 %; Eosinophils # 0.9 K/mcL (0.0-0.6); Eosinophils % 11.7 %; Hemoglobin 7.8 g/dL (12.9-16.9); Immature Granulocytes % 0.7 % (0-4); Immature Platelets 3.9 % (1.1-6.1); Lymphocytes # 0.5 K/mcL (0.6-4.6); Lymphocytes % 6.6 %; Mean Corpuscular HGB Conc 31.2 g/dL (31.6-35.5); Mean Corpuscular Hemoglobin 30.1 pg (28.0-33.3); Mean Corpuscular Volume 96.5 fL (83.0-100.0); Mean Platelet Volume 10.9 fL (9.4-12.4); Monocytes # 0.9 K/mcL (0.0-1.3); Monocytes % 11.2 %; Neutrophils # 5.3 K/mcL (1.6-8.9); Segmented Neutrophils % 69.4 %; White Blood Count 7.6 K/mcL (4.3-11.1)
[2019-04-24 06:25] LABS: Platelet Count 97 K/mcL (140-400)
[2019-04-24 06:41] LABS: Calcium 8.5 mg/dL (8.6-10.3); Magnesium 1.8 mg/dL (1.6-2.6); Phosphorous 3.5 mg/dL (2.7-4.5); Potassium 4.1 mEq/L (3.5-5.1)
[2019-04-24] MEDS: Calcium Acetate 667 MG CAPSULE PO SCH ×3 (09:16→16:58)
[2019-04-24] MEDS: Insulin LISPRO 300 UNITS/3 ML VIAL SQ SCH ×3 (09:16→16:58)
[2019-04-24] MEDS: Metoprolol XL (24 HR) Succ 25 MG TAB.ER.24H PO SCH (09:17)
[2019-04-24] MEDS: Finasteride 5 MG TABLET PO SCH (09:17)
--- NOTE | 2019-04-24 10:14 | Cardiology Progress Note ---
Date of Encounter: 04/24/19 Time of Encounter: 09:40 Assessment and Plan (1) Acute kidney injury superimposed on chronic kidney disease Current Visit: Yes Status: Acute Per Cardiology: Nephrology following. Now on HD. (2) NSTEMI (non-ST elevated myocardial infarction) Current Visit: Yes Status: Acute Per Cardiology: Peak trop 11.78. Type I vs Type II NSTEMI in setting of KRYSTA on CKD--creatinine was 8.06, hyperkalemia with K 7.5. ECG incomplete LBBB, new compared to 2005. Concern for inferior injury on repeat ECGs. TTE EF 25-30%--global. Nephrology was consulted; s/p HD tunneled catheter and now on HD. Heparin gtt started 04/19. HGB downtrended to 7.7 and gtt was stopped. 04/2018 HGB was 13 and has continued to gradually downtrend over the past year. Underwent upper GI endoscopy 04/22: LA Grade I esophagitis. Nonbleeding erosive gastropathy. One 1cm ulcer with some old blood on surface. GI recommended pt avoid ASA and NSAIDS and receive another antiplatelet agent. Underwent Colonoscopy 04/22: One 13mm polyp in the rectum. Recommended to repeat colonoscopy to remove polyp. I discussed with Hudson Ruiz CNP. Plan for flex sig. 04/24 AM to remove polyp. H&H stable at 7/25 range. Continue Statin and BB. Possible C Sunday. Will need to discuss with interventionalist Sunday if okay using Plavix only for antiplatelet therapy given GI recs to avoid ASA-- however, patient is currently on ASA. (3) Cardiomyopathy Current Visit: Yes Status: Acute Per Cardiology: EF 25-30%. NICMP vs ICMP. On Toprol XL. No ACEi/ARB d/t KRYSTA on CKD. On daily weights, strict I&O. Recommend place on fluid restriction once diet resumed. CXR showed mild interstitial pulmonary edema. Will defer diuresis to Nephrology-- on HD now. Qualifiers: Cardiomyopathy type: unspecified Qualified Code(s): I42.9 - Cardiomyopathy, unspecified Discussion w patient/family: The assessment and plan as outlined above was discussed with the patient and/or family members who expressed understanding and agreement. All questions were answered. Thank you for involving us in the care of your patient. Please call with any questions. Subjective Principal diagnosis: KRYSTA/CKD, NSTEMI, Anemia Interval history: Denies any chest pain, short of breath, palpitations. Denies any awareness to any active bleeding or blood loss. Reports pending GI procedure today for polyp removal. Objective Vital Signs, Last 4 Hours Temp Pulse Resp BP 04/24/19 07:54 98.5 F 100 18 122/63 General: Conversant, No Apparent Distress HEENT: Atraumatic, Normocephaly, Mucus Membranes Moist Neck: No JVD, Normal carotid pulses Cardiac: Reg Rate and Rhythm, Normal S1 and S2, No Murmur Lungs: Normal Breath Sounds, No Wheeze, Rales, Rhonchi Neuro: Alert and responsive, No focal deficits noted Abdomen: Soft, Non-Tender Skin: No rashes noted on visualized skin Musculoskeletal: No Chest Wall Tenderness Extremities: No Clubbing, No Cyanosis, Normal Pulses, Other (generalized edema) Results 04/24/19 05:31 04/24/19 05:31 Lab Results Laboratory Tests 04/20/19 04/20/19 04/24/19 04:08 10:49 05:31 Hgb 7.8 L Hct 25.0 L Creatinine Est GFR (Non-Af Amer) Troponin I 11.78 H* HOWARD Screen DETECTED A 04/24/19 05:31 Hgb Hct Creatinine 3.26 H Est GFR (Non-Af Amer) 18 L Troponin I HOWARD Screen Active Medications Aspirin (Aspirin) 81 mg PO DAILY YOBANI Stop: 10/20/19 09:01 Last Admin: 04/23/19 10:23 Dose: Not Given Documented by: Atorvastatin Calcium (Lipitor) 40 mg PO HS YOBANI Stop: 10/20/19 21:01 Last Admin: 04/23/19 20:45 Dose: 40 mg Documented by: Calamine (Caladryl Lotion) 1 appl TP TID PRN PRN Reason: Itching Stop: 10/23/19 09:00 Calcium Acetate (Phos-Lo) 667 mg PO TIDWM YOBANI Stop: 10/22/19 08:01 Last Admin: 04/24/19 09:16 Dose: Not Given Documented by: Citalopram Hydrobromide (Celexa) 40 mg PO DAILY YOBANI Stop: 10/19/19 09:01 Last Admin: 04/24/19 09:17 Dose: 40 mg Documented by: Darbepoetin Lester (Aranesp) 60 mcg SQ Mo@2100 YOBANI Stop: 10/21/19 23:31 Last Admin: 04/21/19 23:44 Dose: 60 mcg Documented by: Dextrose/Water (Dextrose 50% (Syg)) 25 ml IVP AD PRN PRN Reason: Hypoglycemia Stop: 10/18/19 21:16 Diphenhydramine HCl (Benadryl) 25 mg PO Q8HR PRN PRN Reason: Insomnia Stop: 10/19/19 00:40 Last Admin: 04/23/19 20:45 Dose: 25 mg Documented by: Finasteride (Proscar) 5 mg PO DAILY [facility]; Protocol Stop: 10/19/19 09:01 Last Admin: 04/24/19 09:17 Dose: 5 mg Documented by: Glucagon (Glucagen) 1 mg IM ONCE PRN PRN Reason: Hypoglycemia Stop: 10/18/19 21:16 Glucose (Gluctose) 15 gm PO ONCE PRN PRN Reason: Hypoglycemia Stop: 10/18/19 21:16 Glucose (Gluctose) 30 gm PO ONCE PRN PRN Reason: Hypoglycemia Stop: 10/18/19 21:16 Dextrose (Dextrose 5%) 1,000 mls @ 100 mls/hr IVC .Q10H PRN PRN Reason: HYPOGLYCEMIA Stop: 10/18/19 21:16 Sodium Chloride (0.9 % Sodium Chloride) 1,000 mls @ 0 mls/hr PRIME .Q0M YOBANI Stop: 10/22/19 08:16 Sodium Chloride (0.9 % Sodium Chloride) 250 mls @ 937.5 mls/hr IVC .Q16M PRN PRN Reason: Hypotension Stop: 10/23/19 10:35 Insulin Human Lispro (Humalog) 0 units SQ TIDAC [facility]; Protocol Stop: 10/19/19 07:31 Last Admin: 04/24/19 09:16 Dose: Not Given Documented by: Metoprolol Succinate (Toprol Xl) 25 mg PO DAILY [facility] Stop: 10/21/19 09:01 Last Admin: 04/24/19 09:17 Dose: 25 mg Documented by: Naloxone HCl (Narcan) 0.4 mg IVP Q2MPRN PRN PRN Reason: SEE COMMENTS Stop: 10/18/19 21:11 Ondansetron HCl (Zofran) 4 mg IVP Q4H PRN; Protocol PRN Reason: Nausea Stop: 10/18/19 21:46 Last Admin: 04/21/19 23:40 Dose: 4 mg Documented by: Tamsulosin HCl (Flomax) 0.4 mg PO BID [facility]; Protocol Stop: 10/19/19 09:01 Last Admin: 04/24/19 09:16 Dose: 0.4 mg Documented by: - Imaging and Cardiology Echo: report reviewed Cardiac cath: pending Consult Discharge Plan - Plan Referrals: Kaveh Mabry MD [Partnered Physician] - Morris Medina MD [Primary Care Provider] - 05/13/19 10:00 am
--- NOTE | 2019-04-24 11:32 | Internal Med Progress Note ---
Hospitalist Progress Note - Encounter Date of Encounter: 04/24/19 Time of Encounter: 11:29 - Subjective Interval History: Patient seen and examined earlier today. Resting in bed and saturating well on room air. States his LE itchiness is improved with the calamine lotion. Denies any sob, chest pain,n/v, fever, or chills at this time. Scheduled for a colonoscopy later today Ten point ROS is negative except as listed above - Exam Vitals: Temp Pulse Resp BP Pulse Ox 98.5 F 100 18 122/63 92 04/24/19 07:54 04/24/19 07:54 04/24/19 07:54 04/24/19 07:54 04/24/19 00:50 Exam: General: No acute distress, AAO x 3, morbidly obese HEENT: EOMI, NC/AT, no scleral icterus, dry oral mucosa Respiratory: Equal air entry bilaterally, no wheezing, no rales Cardiovascular: Regular, Rate, Rhythm, No murmurs GI: Soft, Non tender, non distended, normal bowel sounds Ext: LE edema, no tenderness, positive pulses, skin excoriations and scabbing on bilateral distal lower extremities, chronic stasis dermatitis on b/l LE Neuro: AAO x 3, no focal deficits Rest of the clinical exam is noncontributory - Summary of Assessment and Plan Summary of Assessment and Plan: Patient is a 78y/o male with reported hx of HTN, CKD, DM who is admitted for acute renal failure. Assessment/Plan: 1. Acute renal failure Nephrology input appreciated s/p tunneled HD cath placement on 04/21/19 continue BACK HAND as per nephrology will closely monitor renal function closely monitor I/Os continue bradley support 2. Metabolic acidosis likely secondary to renal failure resolved at this time 3. Hyperkalemia resolved closely monitor K levels 4. 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 Hyponatremia Resolved continue to closely monitor 6. Rhabdomyolysis Given elevated CPK with reported hx of fall will closely montor CK levels, improved from previous day 7. BPH with concern for urinary outlet obstruction continue home medications continue bradley support outpatient follow up with urology 8. DM type II sliding scale insulin algorithm monitor FS and BG ADA diet 9. HTN BP within acceptable range despite holding home meds holding home dose of lasix, metoprolol, and lisinopril at this time will closely monitor BP 10. LE wound wound care evaluation requested calamine lotion topically prn itchiness 11. DVT ppx: currently on Heparin drip 12. Acute on chronic anemia concern for acute bleeding given heparin infusion and drop in H&H will closely monitor H&H GI evaluation appreciated s/p EGD and colonoscopy EGD reported Duodenal ulcer scheduled for colonoscopy later today for polyp resection Reported of 2 stage II decubitus ulcer as per nursing reports-stable, will continue wound care and frequent turning Care plan discussed with patient/RN/consulting provider/pharmacist/case management - Time Spent with Patient Total time spent is greater than 50% in coordination of care (as documented) at patient's floor/unit and/or counseling patient: Internal Medicine: Result - Labs CBC & Chem 7: 04/24/19 05:31 04/24/19 05:31 Labs: Short CBC 04/24/19 Range/Units 05:31 WBC 7.6 (4.3-11.1) K/mcL Hgb 7.8 L (12.9-16.9) g/dL Hct 25.0 L (37.5-50.1) % Plt Count 97 L (140-400) K/mcL Neutrophils # 5.3 (1.6-8.9) K/mcL BMP 04/24/19 05:31 Sodium 140 Potassium 4.1 Chloride 99 Carbon Dioxide 31 H BUN 21 Creatinine 3.26 H Glucose 119 H Calcium 8.5 L - ABG Interpretation ABG results: PT/INR, D-dimer PT 13.6 Seconds (9.4-12.1) H 04/19/19 10:55 Consult Discharge Plan - Plan Referrals: Kaveh Mabry MD [Partnered Physician] - Morris Medina MD [Primary Care Provider] - 05/13/19 10:00 am
[2019-04-24] MEDS ORDERED: Lidocaine -MPF 2% 2 ML VIAL ONE (11:39)
[2019-04-24] MEDS ORDERED: *HR* Propofol 200 MG/20 ML VIAL IVP ONE (11:39)
[2019-04-24] MEDS ORDERED: *HR* Etomidate 40 MG/20 ML VIAL IVP ONE (11:47)
--- NOTE | 2019-04-24 14:23 | Event Note ---
Date of Encounter: 04/24/19 Time of Encounter: 14:20 - Cardiology Event Note Per GI, recs to stop asa (stopping), ok to add plavix if needed. Plan for [facility] tomorrow. Discussed with Dr. Fairbanks and Dr. Esparza.
[2019-04-24] MEDS: *HR* Heparin 5,000 UNIT/ML VIAL SQ SCH (16:58)
[2019-04-24] MEDS: Ondansetron 4 MG/2 ML VIAL IVP PRN (19:57)
--- NOTE | 2019-04-24 21:04 | Nephrology Progress Note ---
Date of Encounter: 04/24/19 Time of Encounter: 21:01 - Assessment and Plan (1) Acute kidney injury superimposed on chronic kidney disease Current Visit: Yes Status: Acute April 19 2019 Patient has chronic kidney disease that is likely secondary to diabetes and hypertension. He presents with severe acute kidney injury superimposed on chronic kidney disease that is likely multifactorial. The patient gives a history of low to no urine output for several days prior to admission. He also gives a history of decrease oral intake along with nausea and some vomiting prior to his admission. He takes blood pressure medications including a diuretic during the time that he had decreased oral intake and on the day of admission states he was sitting on the son. He presents with a presyncopal episode that clinically I would think is hypovolemia. This hypovolemic shock is likely continuing to his acute kidney injury which at this time is likely acute tubular necrosis given his clinical picture. We will check orthostatic vital signs Since his hyperkalemia responded to medical management will give him aggressive hydration to see if his renal function improves. If the patient is unable to produce urine in the next few hours I will initiate hemodialysis. The patient gives consent for hemodialysis. At this time I am unclear as to why he had the myoclonic jerking. I do not see gabapentin in his medication list. We will defer further investigation to his primary team. The patient has anemia that is likely multifactorial. We will check iron stores, vitamin B12, folate, and a reticulocyte count. Patient can be transfuse as needed. Patient is critically ill with multiple organs failing and life threatening electrolyte abnormalities. April 20 2019 Patient appears much improved. His electrolytes are better. He is mentally better with fewer myoclonic jerks. He denies chest pain or dyspnea. I spoke with Dr. Brock and with Dr. Sanchez, cardiology regarding the plan of care. As the patient will need a cardiac cath and may need ongoing dialysis it would be prudent to place a tunneled catheter in the event that the patient needs antiplatelet therapy if he needs stent placement. This would complicate placing a tunneled catheter later. I will order the tunneled catheter and follow for the need for additional dialysis. April 21 2019 Patient continues to do well and is without chest pain or dyspnea. Tunneled HD line placed and patient seen on dialysis. Awaiting GI work-up prior to cardiac cath per cardiology. Plan for dialysis as needed. Will add HILARY for anemia. Will check PTH and vitamin D. Start phoslo for phosphate binding. April 22 2019 Patient without complaint. Continue daily dialysis for now. Patient getting a GI work-up. Patient seen on dialysis. April Patient seen on dialysis. Will follow for renal recovery. Plan for next dialysis after cardiac cath tentatively planned on Sunday. April 24/2019 Patient without new complaint. I think his renal function is starting to recover. Will plan for dialysis after cardiac cath. (2) Dehydration Current Visit: Yes Status: Acute (3) Diabetes Current Visit: Yes Status: Acute Qualifiers: Qualified Code(s): E11.9 - Type 2 diabetes mellitus without complications (4) Elevated troponin Current Visit: Yes Status: Acute (5) HTN (hypertension) Current Visit: Yes Status: Acute Qualifiers: Qualified Code(s): I10 - Essential (primary) hypertension (6) Hyperkalemia Current Visit: Yes Status: Acute (7) Hyponatremia Current Visit: Yes Status: Acute (8) Near syncope Current Visit: Yes Status: Acute (9) Anemia Current Visit: Yes Status: Acute Qualifiers: Anemia type: unspecified type Qualified Code(s): D64.9 - Anemia, unspecified (10) Metabolic acidosis Current Visit: Yes Status: Acute (11) BPH (benign prostatic hyperplasia) Current Visit: Yes Status: Acute Qualifiers: Qualified Code(s): N40.0 - Benign prostatic hyperplasia without lower urinary tract symptoms (12) Myoclonus Current Visit: Yes Status: Acute Subjective Principal diagnosis: KRYSTA/CKD, NSTEMI, Anemia Interval history: Patient seen. He denies chest pain or dyspnea. Objective - Vital Signs Vital signs: Vital Signs Temp Pulse Resp BP Pulse Ox 04/24/19 19:52 97.5 F L 99 18 124/55 93 04/24/19 16:44 98.4 F 98 19 124/70 95 04/24/19 14:16 92 18 132/73 94 04/24/19 12:58 98.3 F 100 18 144/87 100 04/24/19 11:26 98.3 F 94 18 128/72 93 04/24/19 07:54 98.5 F 100 18 122/63 04/24/19 04:12 98.1 F 97 17 111/64 04/24/19 04:11 102 04/24/19 00:50 98.4 F 96 17 107/68 92 Intake and Output 04/24/19 04/24/19 04/24/19 07:59 15:59 23:59 Intake Total 240 / 480 240 / 480 Output Total 100 / 200 100 / 200 Balance 140 / 280 140 / 280 Intake: Oral 240 / 480 240 / 480 Output: Catheter 100 / 200 100 / 200 Other: Meal NPO Dinner Percent of Meal Consumed 0% 25% Weight 126.9 kg Blood Glucose* 112 119 104 Patient Weight 04/24/19 23:59 Weight 126.9 kg - General Appearance General appearance: Present: well-developed, well-nourished EENT: Present: ATNC Neck: Present: supple Cardiology: Present: regular rate Integumentary: Present: warm and dry Neurologic: Present: alert and oriented x3 Psychiatric: Present: mood/affect appropriate - Lab 04/24/19 05:31 04/24/19 05:31 Consult Discharge Plan - Plan Referrals: Kaveh Mabry MD [Partnered Physician] - Morris Medina MD [Primary Care Provider] - 05/13/19 10:00 am
[2019-04-24 21:10] LABS: ANA HEp-2 IgG IFA DETECTED (<1:80); Anti Nuclear Ab Pattern SPECKLED
[2019-04-25 01:55] LABS: Basophils % 0.4 %; Eosinophils # 1.1 K/mcL (0.0-0.6); Eosinophils % 11.6 %; Hematocrit 27.2 % (37.5-50.1); Hemoglobin 8.4 g/dL (12.9-16.9); Immature Granulocytes % 0.5 % (0-4); Immature Platelets 3.7 % (1.1-6.1); Lymphocytes # 0.6 K/mcL (0.6-4.6); Lymphocytes % 6.4 %; Mean Corpuscular HGB Conc 30.9 g/dL (31.6-35.5); Mean Corpuscular Hemoglobin 29.8 pg (28.0-33.3); Mean Corpuscular Volume 96.5 fL (83.0-100.0); Mean Platelet Volume 10.8 fL (9.4-12.4); Monocytes % 10.1 %; Neutrophils # 6.8 K/mcL (1.6-8.9); Nucleated Red Blood Cells 0.2 /100 WBC (0); Platelet Count 107 K/mcL (140-400); Red Blood Count 2.82 M/mcL (4.19-5.50); White Blood Count 9.5 K/mcL (4.3-11.1)
[2019-04-25 02:54] LABS: Calcium 8.7 mg/dL (8.6-10.3); Magnesium 1.8 mg/dL (1.6-2.6); Phosphorous 3.7 mg/dL (2.7-4.5)
[2019-04-25] MEDS: *HR* Heparin 5,000 UNIT/ML VIAL SQ SCH ×2 (05:13→17:41)
[2019-04-25] MEDS: Insulin LISPRO 300 UNITS/3 ML VIAL SQ SCH ×3 (06:36→17:30)
[2019-04-25] MEDS ORDERED: *HR* Heparin 10,000 UNIT/10 ML VIAL IV PRN (07:17)
[2019-04-25] MEDS ORDERED: 0.9 % Sodium Chloride 250 ML IVC PRN (07:17)
[2019-04-25] MEDS ORDERED: 0.9 % Sodium Chloride 1,000 ML PRIME SCH (07:30)
[2019-04-25] MEDS: Calcium Acetate 667 MG CAPSULE PO SCH ×3 (08:36→17:47)
[2019-04-25] MEDS: Finasteride 5 MG TABLET PO SCH (08:45)
[2019-04-25] MEDS: Metoprolol XL (24 HR) Succ 25 MG TAB.ER.24H PO SCH (08:45)
--- NOTE | 2019-04-25 10:44 | Internal Med Progress Note ---
Hospitalist Progress Note - Encounter Date of Encounter: 04/25/19 Time of Encounter: 10:41 - Subjective Interval History: Patient seen and examined with present at bedside. Pt sitting in chair, denies any sob or chest pain. States he has not had a BM yesterday or today but denies any abd pain,n/v, fever, or chills. As per documentation, pt is scheduled for [facility] today. HD after LHC No overnight events reported Ten point ROS is negative except as listed above - Exam Vitals: Temp Pulse Resp BP Pulse Ox 98.9 F 104 18 114/70 94 04/25/19 07:41 04/25/19 07:41 04/25/19 07:41 04/25/19 07:41 04/25/19 07:41 Exam: General: No acute distress, AAO x 3, morbidly obese HEENT: EOMI, NC/AT, no scleral icterus, dry oral mucosa Respiratory: Equal air entry bilaterally, no wheezing, no rales Cardiovascular: Regular, Rate, Rhythm, No murmurs GI: Soft, Non tender, non distended, normal bowel sounds Ext: LE edema, no tenderness, positive pulses, skin excoriations and scabbing on bilateral distal lower extremities-calamine lotion on b/l LE, chronic stasis dermatitis on b/l LE Neuro: AAO x 3, no focal deficits Rest of the clinical exam is noncontributory - Summary of Assessment and Plan Summary of Assessment and Plan: Patient is a 78y/o male with reported hx of HTN, CKD, DM who is admitted for acute renal failure. Assessment/Plan: 1. 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 Metabolic acidosis likely secondary to renal failure resolved at this time 3. Hyperkalemia resolved closely monitor K levels 4. Elevated TNI/NSTEMI continue management as per cardiology Scheduled for [facility] today, f/u with cardiology 5. Hyponatremia Resolved continue to closely monitor 6. Rhabdomyolysis Given elevated CPK with reported hx of fall will closely montor CK levels, improved from previous day 7. BPH with concern for urinary outlet obstruction continue home medications continue bradley support outpatient follow up with urology 8. DM type II sliding scale insulin algorithm monitor FS and BG ADA diet 9. HTN BP within acceptable range despite holding home meds holding home dose of lasix, metoprolol, and lisinopril at this time will closely monitor BP 10. LE wound wound care evaluation calamine lotion topically prn itchiness 11. DVT ppx: currently on Heparin drip 12. Acute on chronic anemia concern for acute bleeding given heparin infusion and drop in H&H will closely monitor H&H GI evaluation appreciated s/p EGD and colonoscopy EGD reported Duodenal ulcer Reported of 2 stage II decubitus ulcer as per nursing reports-stable, will continue wound care and frequent turning Care plan discussed with patient/RN/consulting provider/pharmacist/case management - Time Spent with Patient Total time spent is greater than 50% in coordination of care (as documented) at patient's floor/unit and/or counseling patient: Internal Medicine: Result - Labs CBC & Chem 7: 04/25/19 01:25 04/25/19 01:25 Labs: Short CBC 04/25/19 Range/Units 01:25 WBC 9.5 (4.3-11.1) K/mcL Hgb 8.4 L (12.9-16.9) g/dL Hct 27.2 L (37.5-50.1) % Plt Count 107 L (140-400) K/mcL Neutrophils # 6.8 (1.6-8.9) K/mcL BMP 04/25/19 01:25 Sodium 138 Potassium 4.0 Chloride 101 Carbon Dioxide 28 BUN 27 H Creatinine 3.81 H Glucose 91 Calcium 8.7 - ABG Interpretation ABG results: PT/INR, D-dimer PT 13.6 Seconds (9.4-12.1) H 04/19/19 10:55 Consult Discharge Plan - Plan Referrals: Kaveh Mabry MD [Partnered Physician] - Morris Medina MD [Primary Care Provider] - 05/13/19 10:00 am
[2019-04-25] MEDS ORDERED: 0.9 % Sodium Chloride 1,000 ML ONE ×2 (10:58→16:20)
[2019-04-25] MEDS ORDERED: *HR* Heparin 10,000 UNIT/10 ML VIAL ONE (10:58)
[2019-04-25] MEDS ORDERED: Nitroglycerin 1,000 MCG/10 ML VIAL IV ONE (10:58)
[2019-04-25] MEDS ORDERED: Heparin 1,000 UNITS/500 mL 500 ML ONE (10:58)
[2019-04-25] MEDS ORDERED: ISOVUE-370 200 ML INFUS..BTL ONE (10:58)
[2019-04-25] MEDS ORDERED: *HR* FentaNYL (PF) 100 MCG/2 ML VIAL ONE (11:59)
[2019-04-25] MEDS ORDERED: *HR* Midazolam HCl 2 MG/2 ML VIAL ONE (11:59)
--- NOTE | 2019-04-25 12:05 | Pre-Sedation Evaluation ---
Pre-sedation evaluation - Pre-sedation checklist Date of procedure: 04/25/19 Procedure: [facility] Recent Vitals: Last Vital Signs Temp 98.2 F 04/25/19 11:31 Pulse 96 04/25/19 11:31 Resp 18 04/25/19 11:31 BP 120/66 04/25/19 11:31 Pulse Ox 96 04/25/19 11:31 H&P (including ROS) documented in medical record: Yes Previous reaction to sedatives/anesthetics: Unknown Dietary Status: NPO after Midnight Dentition: No loose teeth or bridges ASA Classification *see protocol: CLASS II-Mild systemic disease Cardiac Registry (Cardio Only) - Functional Capacity Functional Capacity: >=4 METS with symptoms - Clincal Frailty Scale Clinical Frailty Scale: Managing Well
--- NOTE | 2019-04-25 12:46 | Invasive Diagnostic Lab Proc ---
Name: Newton Galvan Date of Study: 04/25/2019 Date: 1940 Ht: 66.9in Medical Record#: [id number] Age: 78 Wt: 279.99lb Gender: Male BSA: 2.33 Order #: [id number] BMI: 43.94 Physicians Procedure Physician: Kelly Esparza MD Referring MD: Referring MD: Staff Name Position Time In Ruth Manzano RN Prototype Machinist 12:00 PM Lauro Phillips RN Monitor 12:01 PM Leeann Santiago RT (R) Scrub 12:02 PM Procedures Performed Procedure L HRT ARTERY/VENTRICLE ANGIO Pre-Procedure Checklist Informed consent is complete signed and on chart. H&P is on chart. ID band is on and ID verified with patient. Patient NPO for procedure The procedure was described for the patient and questions were answered. ECG is on chart. Plan of Care Patient will tolerate the procedure without complications. Adequate level of comfort will be maintained. Hemodynamics will remain stable Patient will recover from procedure without complications. Respiratory function will be maintained. Cardiac rhythm will remain stable. Patient temperature will be maintained. Patient and/or family have verbalized understanding of the procedure. Patient Education Intravenous Access Time IV Size Location DC'd Fluid/Drip Rate Units RN PICC Line Rt Arm 0.9NaCl 20 ml/hr Allergies NKA No Known Allergies Vital Signs Time BP (mmHg) HR (bpm) O2 Sat. RR (bpm) LOC 12:03 PM / % 5 = Fully awake and oriented or at pre-proc level 12:03 PM / % 4 = Oriented but drowsy Procedural Medications Time Medication Dose Units Method Given By 12:03 PM Versed 1 mg Intravenous Ruth Manzano RN 12:04 PM Fentanyl 50 mcg Intravenous Ruth Manzano RN 12:05 PM Oxygen 2 L/min nasal cannula Ruth Manzano RN 12:08 PM Oxygen 2 L/min nasal cannula Ruth Manzano RN 12:08 PM Lidocaine 2% 20 ml Subcutaneous Kelly Esparza MD ASA Classification: CLASS III- Severe systemic disease (i.e. prior AMI, diabetes with vascular complications, morbid obesity) Urbano Score Preprocedure Postprocedure Activity 2- Moves 4 extremities sustained head lift Activity 2- Moves 4 extremities sustained head lift Circulation 2- SBP +/= 20 points of pre-anesthetic level Circulation 2- SBP +/= 20 points of pre-anesthetic level Consciousness 2- Awake and alert oriented x 3 Consciousness 2- Awake and alert oriented x 3 O2 Saturation 2- Able to maintain O2 satruation of 92% on room air O2 Saturation 2- Able to maintain O2 satruation of 92% on room air Respiratory 2- Able to deep breathe and cough well Respiratory 2- Able to deep breathe and cough well Total Score 10 Total Score 10 Contrast Agent: Isovue Diagnostic Contrast: 3 ml Total Contrast: 3 ml Fluoro Dose: 36 mGy Procedure Log Time Note Enter By 11:51 AM Pt arrived to crown and bridge dental lab technician 2 at 11:51 oparker 11:51 AM Patient charges- Angio tray pack, Navilyst 3mm J, Pulse Oximetry and ACIST tubing and transducer oparker 11:54 AM Physician arrived 11:54 oparker 11:55 AM Sign in performed according to hospital policy. Informed consent was obtained. oparker 11:55 AM Meet and greet completed oparker 11:56 AM Procedure start 11:56 oparker 12:01 PM Ruth Manzano RN Position: Prototype Machinist Time in: 12:00 oparker 12:01 PM Lauro Phillips RN Position: Monitor Time in: 12:01 oparker 12:02 PM Leeann Santiago (R) Position: Scrub Time in: 12:02 oparker 12:02 PM Hair removed from procedure site in holding area using clippers. Bilateral groin prepped with Chloraprep by Leeann Santiago (R), then patient was draped. Skin intact. oparker 12:03 PM Time: 12:03 Patient comfortable and pain free: Yes oparker 12:03 PM Time: 12:03LOC: 5 = Fully awake and oriented or at pre-proc level oparker 12:04 PM Time: 12:03 Versed 1 mg Intravenous Given by Ruth Manzano RN oparnataliya 12:04 PM Time: 12:04 Fentanyl 50 mcg Intravenous Given by Ruth Manzano RN oparnataliya 12:05 PM Time: 12:05 Oxygen on at 2 L/min per nasal cannula by Ruth Manzano RN 12:07 PM Time out was performed according to hospital policy. Conscious sedation and anesthesia was achieved (see medication log with in this report above) oparker 12:08 PM Time: 12:08 Oxygen on at 2 L/min per nasal cannula by Ruth Manzano RN oparker 12:11 PM Time: 12:08 20 ml Lidocaine 2% to right groin Subcutaneous Given by Kelly Esparza MD oparker 12:12 PM Micro-Introducer Kit utilized for sheath placement oparker 12:13 PM Access obtained by percutaneous puncture. 6Fr 10cm Terumo Ash sheath placed in right Femoral artery. [id number] oparker 12:14 PM 0.035 145cm Navilyst 3mmJ wire [id number] oparker 12:14 PM 5Fr FR 4 catheter inserted over the wire DNC oparker 12:15 PM RCA angiography performed in multiple views. oparker 12:16 PM Catheter removed oparker 12:16 PM 5Fr FL 4 catheter inserted over the wire DNC oparker 12:17 PM LCA angiography performed in multiple views. oparker 12:18 PM Time: 12:03LOC: 4 = Oriented but drowsy oparker 12:18 PM Time: 12:03 Patient comfortable and pain free: Yes oparker 12:20 PM Catheter removed oparker 12:20 PM 5Fr Pigtail catheter inserted over the wire DNC oparker 12:21 PM Catheter crossed the aortic valve and was selectively placed in the left ventricle. Pressures recorded on pullback for left heart catheterization. oparker 12:22 PM Catheter removed oparker 12:23 PM Physician consulting with Dr. Buckner oparker 12:23 PM Wire removed oparker 12:23 PM Procedure completed at 12:23 04/25/2019 oparker 12:24 PM Sign out completed: Radiation Dose 393.68 mGy, 36.1 mGy/cm2 Fluoro Time: Isovue 370 - 200ml contrast 2.8 ml given by Kelly Esparza MD. Complications: None. 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 Sedation minutes 20. Cardiac Rehab Consult needed: Yes. Confirmed administered medications: Yes oparker 12:25 PM Isovue 370 - 200ml,1 Bottle(s) used. oparker 12:25 PM Arterial sheath pulled, Mynx closure device used and was Successful [id number] S/N. oparker 12:25 PM Estimated Blood Loss: less than 20cc oparker 12:25 PM Post ECG NSR oparker 12:25 PM Post Blood Pressure 99/63 oparker 12:25 PM 12:25 Post Pulses Bilateral DP 1+ oparker 12:25 PM Information taught Cardiac Cath and Mynx oparker 12:25 PM Education needs Procedure, Plan of Care, and Disease Process oparker 12:25 PM Learning barriers :None oparker 12:25 PM Education Methods Verbal oparker 12:25 PM Education evaluation Able to repeat information oparker 12:26 PM Did you address CAN flow and Dominance? YesCoronary Dominance: right oparker 12:30 PM Lesion found in Mid LAD. Pre Stenosis: 90 Pre CAN Flow: oparker 12:30 PM Lesion found in Distal Circumflex. Pre Stenosis: 100 Pre CAN Flow: oparker 12:30 PM Lesion found in Proximal RCA. Pre Stenosis: 70 Pre CAN Flow: oparker 12:30 PM Lesion found in Mid RCA. Pre Stenosis: 100 Pre CAN Flow: oparker 12:31 PM Mid/Distal Left Anterior Descending Coronary Artery and diagonal branches with 90% stenosis. If graft is supplying this area, 0 % stenosis oparker 12:31 PM Circumflex, Obtuse Marginal, Left Posterior Descending, and Left Posterolateral Coronary Arteries with 100 % stenosis. If graft is supplying this area, 0 % stenosis oparker 12:31 PM Right Coronary, Right Posterior Descending Arteries with Right Posterolateral and Acute Marginal branches with 100 % stenosis. If graft is supplying this area, 0 % stenosis oparker 12:35 PM Site status No bleeding/hematoma - Rt Groin as reported by Leeann Santiago RT (R) at 12:35 oparker 12:35 PM Opsite applied oparker 12:35 PM Patient out of room: 12:35 oparker 12:35 PM Family placed in consult room. oparker 12:36 PM Report given to Negra STYLES Pt taken to 2N Room #9. 12:36 oparker 12:39 PM ASA Class CLASS III- Severe systemic disease (i.e. prior AMI, diabetes with vascular complications, morbid obesity) oparker Complications Complication None Post Procedure Information Blood Pressure: 99/63 mmHg Rhythm: NSR Post procedural instructions were given Surgery consult for CABG Closure Device Time Device Success/Fail 04/25/2019 12:27:00 PM MynxGrip Successful Site Checks Time Location Status Staff Sheath In? Note 12:35 PM Rt Groin No bleeding/hematoma Leeann Santiago RT (R) Pulses Time Site Pre-Procedure Post-Procedure Note 12:25:00 PM Bilateral DP 1+ Updated by Lauro Phillips RN on 04/25/2019 12:40:09 PM electronically signed on 04/25/2019 12:40:26 PM with status of Final
--- NOTE | 2019-04-25 13:52 | Cardiothoracic Consult Note ---
Date of Encounter: 04/25/19 Time of Encounter: 13:46 Assessment and Plan (1) NSTEMI (non-ST elevated myocardial infarction) Current Visit: Yes Status: Acute The patient is a 78-year-old type II diabetic, hypertensive, moderately obese man with hypercholesterolemia who was admitted to [facility] after sustaining a fall at home. During his workup he was found to have elevated troponin I levels consistent with a NSTEMI. He was also anemic and underwent an extensive GI workup including an EGD which revealed esophagitis, multiple gastric erosions, and a 1 cm diameter nonbleeding duodenal ulcer. The colonoscopy revealed a 1.3 cm rectal polyp. A transthoracic echocardiogram revealed an LVEF 25-30% with severe global left ventricular function. He underwent cardiac catheterization today and was found to have severe 3 vessel CAD. In particular, the patient has a 90% proximal LAD lesion, a completely occluded proximal LCx, and a completely occluded proximal RCA. The distal LCx and distal RCA filled faintly via left to left and [id number] collaterals, respectively. I been asked to evaluate the patient for possible high risk CABG. The STS risk score calculator reveals an operative mortality risk 22.02%, permanent stroke risk 2.22%, deep sternal wound infection risk 2.05%, and reoperation risk 2.95%. I believe that the patient should be transferred to a tertiary Medical Center for consideration of possible high risk PCI with and Impella support or high risk CABG with possible/probable postoperative LV support. The assessment and plan as outlined above was discussed with the patient and/or family members who expressed understanding and agreement. All questions were answered. - History of Present Illness Consult date: 04/25/19 Requesting physician: Kelly Esparza Consult reason: CABG evaluation Chief complaint: NSTEMI History of present illness: Mr. Galvan is a 78 year old type II diabetic, hypertensive, moderately obese man with hypercholesterolemia who was admitted to [facility] on 04/18/2019 after sustaining a fall at home. The patient was sitting on his porch and stood up quickly. He states that he lost his balance and fell to the ground. He states that he did not lose consciousness and did not injure his head. During his evaluation at [facility] emergency department, is found to have elevated troponin I levels consistent with an acute non-STEMI. He denies any substernal chest pain, though his had shortness of breath, dyspnea on exertion and diaphoresis for several months. In addition, he was noted to be anemic and has undergone an extensive GI workup including an EGD which revealed esophagitis, multiple gastric erosions, and a 1 cm diameter, nonbleeding duodenal ulcer. A colonoscopy which revealed a 1.3 cm rectal polyp. The patient underwent a transthoracic echocardiogram which revealed an LVEF 25- 30% with severe global left ventricular systolic dysfunction. Cardiac catheterization performed today revealed severe 3 vessel CAD. In particular, the patient has a 90% proximal LAD lesion, a completely occluded proximal LCx which fills distally via left to left collaterals, and a completely occluded mid RCA which fills distally via [id number] collaterals. The been asked to evaluate the patient for possible high risk CABG. Past Med Surg Social Fam HX - Past Medical History Medical history: coronary artery disease, diabetes, hyperlipidemia, hypertension, renal disease (CKD, StageV) Psychiatric history: no psych history - Past Surgical History Surgical History: herniorrhaphy (Left inguinal herniorrhaphy), knee replacement (Left total knee replacement), other (Bilateral cataract excision with intraocular lens implantation) - Social History Smoking Status: Former smoker Packs per day: 1PPD x 2YRS Smokeless Tobacco Status: No Alcohol use: none Drug use: none Occupational status: retired Current living situation: Home - Independent Activity Level: Mostly sedentary Recent Out of Country Travel Within the Last 8 Weeks: No Exposure or Possible Exposure to Illness During Travel: No - Family History Brother Living Status: Hx Family Cardiac Disorders: Yes Hx Family Cancer: Yes Sister Hx Family Respiratory Disorders: Yes Medications and Allergies Aspirin [Lo-Dose Aspirin EC] 81 mg PO DAILY 04/18/19 [History] Citalopram Hydrobromide [Citalopram HBr] 40 mg PO DAILY 04/18/19 [History] Finasteride [Proscar] 5 mg PO DAILY 04/18/19 [History] Furosemide [Lasix] 20 mg PO DAILY 04/18/19 [History] Insulin Glargine [Lantus] 40 unit SQ HS 04/18/19 [History] Lisinopril [Zestril] 10 mg PO DAILY 04/18/19 [History] Metoprolol Tartrate 100 mg PO BID 04/18/19 [History] Simvastatin [Zocor] 20 mg PO HS 04/18/19 [History] Tamsulosin [Flomax] 0.4 mg PO BID 04/18/19 [History] dilTIAZem HCl [Diltiazem ER] 240 mg PO DAILY 04/18/19 [History] Allergy/AdvReac Type Severity Reaction Status Date / Time No Known Allergies Allergy Verified 04/18/19 16:48 All Systems Review: The remainder of the systems were reviewed and are negative Physical Examination Vital Signs, Last 4 Hours Temp Pulse Resp BP Pulse Ox 04/25/19 12:50 94 109/62 04/25/19 11:31 98.2 F 96 18 120/66 96 General: Conversant, No Apparent Distress, Other (Moderately obese man lying comfortably) HEENT: Atraumatic, Normocephaly, Trachea midline Neck: No JVD, Normal carotid pulses Cardiac: Reg Rate and Rhythm, Normal S1 and S2, No Murmur Lungs: Normal Breath Sounds, No Wheeze, Rales, Rhonchi Neuro: Alert and responsive, No focal deficits noted, Motor nerves intact, S ensory nerves intact Vascular: Normal capillary refill Abdomen: Soft, Non-tender, Other (Obese) Musculoskeletal: No Chest Wall Tenderness Extremities: No Clubbing, No Cyanosis, Other (3+ bilateral lower extremity pitting edema with bilateral venous stasis changes) Results 04/25/19 01:25 04/25/19 01:25 Lab Results, Last 24 hours 04/25/19 04/25/19 01:25 01:25 WBC 9.5 Hgb 8.4 L Hct 27.2 L Plt Count 107 L Sodium 138 Potassium 4.0 Chloride 101 Carbon Dioxide 28 BUN 27 H Creatinine 3.81 H Glucose 91 Calcium 8.7 Magnesium 1.8 - Imaging Chest Xray: image reviewed (Normal cardiac size. No active pulmonary disease.) Consult Discharge Plan - Plan Referrals: Kaveh Mabry MD [Partnered Physician] - Morris Medina MD [Primary Care Provider] - 05/13/19 10:00 am
--- NOTE | 2019-04-25 14:22 | Event Note ---
Date of Encounter: 04/25/19 Time of Encounter: 14:20 - Cardiology Event Note C with severe multi-vessel PCI. Evaluated by and recommended for transfer to tertiary care facility. Discussed with primary service. Cardiology will sign off.
--- NOTE | 2019-04-25 15:00 | Discharge Summary ---
- NOTES TO OUTPATIENT PROVIDER Notes to Outpatient Provider: Pt admitted for acute renal failure and NSTEMI. 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 Orders not resulted at time of discharge: Pending orders 04/18/19 16:50 ECG 12 lead ECG [ECG] Stat 04/20/19 10:15 Occult Blood,Stool [BF] Stat 04/24/19 13:15 Surgical Pathology [PTH] Routine 04/25/19 10:51 CL Cardiac Catheterization [CL] Routine Date of Encounter: 04/25/19 Time of Encounter: 14:55 - Discharge Diagnosis (1) NSTEMI (non-ST elevated myocardial infarction) Priority: Secondary Status: Acute (2) Acute renal failure Priority: Primary Status: Acute Qualifiers: Acute renal failure type: unspecified Qualified Code(s): N17.9 - Acute kidney failure, unspecified (3) Acute kidney injury superimposed on chronic kidney disease Priority: Primary Status: Acute (4) DVT prophylaxis Priority: Secondary Status: Acute (5) Elevated troponin Priority: Secondary Status: Acute (6) HTN (hypertension) Priority: Secondary Status: Chronic Qualifiers: Qualified Code(s): I10 - Essential (primary) hypertension (7) Hyperkalemia Priority: Secondary Status: Resolved (8) Hyponatremia Priority: Secondary Status: Resolved (9) Metabolic acidosis Priority: Secondary Status: Resolved Hospital course: Mr. Galvan is a 78 year old male with PMH of CKD stage IV, HTN, HLD, DM who was admitted for acute on chronic renal failure, hyperkalemia. He was also found to have worsening of troponin and further treated for NSTEMI. Pt was evaluated by nephrology and cardiology. He was started on dialysis and heparin drip. LHC was on hold due to concern for acute GI bleed anemia. GI workup was completed prior to patient undergoing LHC. 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 Pt was informed of this finding who is in agreement with the transfer. [facility] was called, patient has been accepted under the care of Dr. Ovalles. Discharge pending [facility] bed availability Pt in agreement with the transfer care and plan, all questions were answered. Discharge discussed with: patient, nurse, social work, case management, sales consultant residential manager - Time Spent with Patient Total time spent providing and/or coordinating discharge services: 45 minutes Time spent: Greater than 30 minutes - Discharge Medications Prescriptions: New Atorvastatin [Lipitor] 40 mg PO HS tablet Metoprolol XL (24 HR) Succ [Toprol Xl] 25 mg PO DAILY tab.er.24h Calamine/Zinc oxide Lotion [Caladryl Lotion] 1 appl TP TID PRN bottle PRN Reason: Itching Continued Aspirin [Lo-Dose Aspirin EC] 81 mg PO DAILY Furosemide [Lasix] 20 mg PO DAILY Citalopram Hydrobromide [Citalopram HBr] 40 mg PO DAILY Tamsulosin [Flomax] 0.4 mg PO BID Finasteride [Proscar] 5 mg PO DAILY Lisinopril [Zestril] 10 mg PO DAILY Insulin Glargine [Lantus] 40 unit SQ HS Discontinued Simvastatin [Zocor] 20 mg PO HS Metoprolol Tartrate 100 mg PO BID dilTIAZem HCl [Diltiazem ER] 240 mg PO DAILY Home Medications: Aspirin [Lo-Dose Aspirin EC] 81 mg PO DAILY 04/18/19 [History] Citalopram Hydrobromide [Citalopram HBr] 40 mg PO DAILY 04/18/19 [History] Finasteride [Proscar] 5 mg PO DAILY 04/18/19 [History] Furosemide [Lasix] 20 mg PO DAILY 04/18/19 [History] Insulin Glargine [Lantus] 40 unit SQ HS 04/18/19 [History] Lisinopril [Zestril] 10 mg PO DAILY 04/18/19 [History] Tamsulosin [Flomax] 0.4 mg PO BID 04/18/19 [History] Atorvastatin [Lipitor] 40 mg PO HS tablet 04/25/19 [Rx] Calamine/Zinc oxide Lotion [Caladryl Lotion] 1 appl TP TID PRN bottle 04/25/19 [Rx] Metoprolol XL (24 HR) Succ [Toprol Xl] 25 mg PO DAILY tab.er.24h 04/25/19 [Rx] Allergies/Adverse Reactions: Allergy/AdvReac Type Severity Reaction Status Date / Time No Known Allergies Allergy Verified 04/18/19 16:48 Date of admission: 04/20/19 08:34 Primary care physician: Morris Medina Consults: 04/18/19 18:16 Consult to Nephrology [CONS] Stat Consulting Provider: Kidney Angela/BRADLY/CECILE/ELIZABETH Reason for Consult: hyperkalemia Call Completed: Yes 04/19/19 03:45 Consult to Dialysis [CONS] ONCE 04/19/19 10:11 Consult to Cardiology [CONS] Routine Comment: Dr. Brock to make phone call to cardiology Consulting Provider: Cardiology Angela Reason for Consult: elevated troponin level Time Notified: 10:12 Call Completed: No 04/19/19 11:09 Consult to Wound Care [CONS] Routine Reason for Consult: b/l LE wounds Call Completed: No 04/19/19 12:43 Consult to Interventional Radiology [CONS] Stat Consulting Provider: Radiology Interventional Cols Reason for Consult: patient needs hemodialysis line placement. Call Completed: Yes 04/19/19 14:30 Consult to Dialysis [CONS] ONCE 04/19/19 14:51 Consult to Physical Therapy [CONS] Routine Comment: Evaluate, develop and implement POC Reason for Consult: discharge planning, weakness Does patient have active BEDREST order?: No Is patient medically & hemodynamically stable?: Yes Patient assessed for mobility or mobilized this visit?: Yes 04/19/19 14:56 Consult to Occupational Therapy [CONS] Routine Comment: Evaluate, develop and implement POC Reason for Consult: weakness, discharge planning Does patient have active BEDREST order?: No Is patient medically & hemodynamically stable?: Yes Patient assessed for mobility or mobilized this visit?: Yes Consult to Steam Finisher [CONS] Routine Reason for SW Consult: discharge planning 04/20/19 22:18 Consult to Interventional Radiology [CONS] Routine Consulting Provider: Radiology Interventional Cols Reason for Consult: Patient needs tunneled HD catheter placement. Call Completed: No 04/21/19 08:15 Consult to Dialysis [CONS] ONCE 04/21/19 08:42 Consult to Cardiac Rehabilitation-Phase1 [CONS] Routine Comment: Reason for Consult: NSTEMI Call Completed: No 04/21/19 08:50 Consult to Gastroenterology [CONS] Routine Consulting Provider: Halmet Miller Reason for Consult: anemia Call Completed: Yes 04/22/19 08:15 Consult to Dialysis [CONS] ONCE 04/23/19 10:45 Consult to Dialysis [CONS] ONCE 04/25/19 07:30 Consult to Dialysis [CONS] ONCE Discharging clinician: Yelitza Brock Anticipated date of discharge: 04/25/19 - Constitutional Vitals: Temp Pulse Resp BP Pulse Ox 97.9 F 98 18 112/57 96 04/25/19 13:45 04/25/19 14:00 04/25/19 13:45 04/25/19 14:30 04/25/19 11:31 Exam: General: No acute distress, AAO x 3, morbidly obese HEENT: EOMI, NC/AT, no scleral icterus, dry oral mucosa Respiratory: Equal air entry bilaterally, no wheezing, no rales Cardiovascular: Regular, Rate, Rhythm, No murmurs GI: Soft, Non tender, non distended, normal bowel sounds Ext: LE edema, no tenderness, positive pulses, skin excoriations and scabbing on bilateral distal lower extremities-calamine lotion on b/l LE, chronic stasis dermatitis on b/l LE Neuro: AAO x 3, no focal deficits Rest of the clinical exam is noncontributory - Patient Status Disposition: Transfer Critical Access Hosp Condition: Fair - Discharge Instructions Follow Up With: Kaveh Mabry MD [Partnered Physician] - Morris Medina MD [Primary Care Provider] - 05/13/19 10:00 am
[2019-04-25 17:30] VITALS: BP 102/58
--- NOTE | 2019-04-25 21:35 | Nephrology Progress Note ---
Date of Encounter: 04/25/19 Time of Encounter: 14:00 - Assessment and Plan (1) Hyperkalemia Current Visit: Yes Status: Resolved (2) Near syncope Current Visit: Yes Status: Acute (3) Dehydration Current Visit: Yes Status: Acute (4) Acute kidney injury superimposed on chronic kidney disease Current Visit: Yes Status: Acute (5) Elevated troponin Current Visit: Yes Status: Acute (6) Hyponatremia Current Visit: Yes Status: Resolved (7) BPH (benign prostatic hyperplasia) Current Visit: Yes Status: Acute Qualifiers: Qualified Code(s): N40.0 - Benign prostatic hyperplasia without lower urinary tract symptoms (8) HTN (hypertension) Current Visit: Yes Status: Chronic Qualifiers: Qualified Code(s): I10 - Essential (primary) hypertension (9) Diabetes Current Visit: Yes Status: Acute Qualifiers: Qualified Code(s): E11.9 - Type 2 diabetes mellitus without complications (10) Anemia Current Visit: Yes Status: Acute Qualifiers: Anemia type: unspecified type Qualified Code(s): D64.9 - Anemia, unspecified (11) Metabolic acidosis Current Visit: Yes Status: Resolved (12) Myoclonus Current Visit: Yes Status: Acute Subjective Principal diagnosis: KRYSTA/CKD, NSTEMI, Anemia Interval history: Interim noted, pt seen and examined with family at bedside while discussing with Dr Buckner his options after C showed CAD. Pt seen again on HD Objective - Vital Signs Vital signs: Vital Signs Temp Pulse Resp BP Pulse Ox 04/25/19 17:25 98 18 102/58 04/25/19 17:00 97.8 F 16 120/57 04/25/19 16:45 111/69 04/25/19 16:30 111/53 04/25/19 16:15 104/60 04/25/19 16:00 98 136/53 04/25/19 15:45 117/57 04/25/19 15:30 123/66 04/25/19 15:15 125/71 04/25/19 15:00 102 120/68 04/25/19 14:45 97/59 04/25/19 14:30 112/57 04/25/19 14:15 94/54 04/25/19 14:00 98 111/64 04/25/19 13:45 97.9 F 18 107/63 04/25/19 13:30 99 125/71 04/25/19 13:15 95 122/79 04/25/19 13:00 87 110/59 04/25/19 12:50 94 109/62 04/25/19 11:31 98.2 F 96 18 120/66 96 04/25/19 07:41 98.9 F 104 18 114/70 94 04/25/19 04:34 98.9 F 106 18 105/56 90 04/24/19 23:36 98.9 F 94 18 112/70 90 Intake and Output 04/25/19 04/25/19 04/25/19 07:59 15:59 23:59 Intake Total 600 / 600 Output Total 300 / 900 600 / 900 Balance -300 / -300 600 / -300 -600 / -300 Intake: Intake, Rinseback and Flushes 600 / 600 Output: Total Dialysis (HD) Output 600 / 600 Catheter 300 / 300 Other: Weight 126.6 kg Blood Glucose* 98 97 133 Hemodialysis Net Fluid Removed 395 0 (mL) Patient Weight 04/25/19 23:59 Weight 126.6 kg - Lab 04/25/19 01:25 04/25/19 01:25 Consult Discharge Plan - Plan Referrals: Kaveh Mabry MD [Partnered Physician] - Morris Medina MD [Primary Care Provider] - 05/13/19 10:00 am
== END 2019-04-25 19:55 | disposition critical access hospital (66) | DRG 280 ==
LOC: EMEROOARM 16:34 → 2NNU 16:34 → SUATTDRO 20:21 → 2NNU 21:03
PROVIDERS: ADMIT Internal Medicine; ATTEND Internal Medicine
PROC: IRPERMA (2019-04-21 12:00)